=== PATIENT | male | born 1935 | race Caucasian/White ===

== ENCOUNTER → 2016-05-25 | Outpatient (CLI) | payer MEDICARE, BC, OTHER ==
[~2016-05-25] MED LIST: /ADVA50050 IN; /ADVA50050 INH; /PANT40TA; /TIOT18INH; /TIOT18INH INH; ACET65TA; ACET65TA PO; ADVA230A INH; ADVAIR; ALBUTEROL INHALATION; ATROVENT0.02% INH; BUSP5TA PO; CEFT500T PO; CEFU500T5; CELE10TA PO; COLC1TAB5 PO; DOCU10CA PO; IPRASOL4 IN; OXYGEN; PRED10TA PO; PRED10TA2; PRED10TA2 PO; PRIL40CA OR; PRIL40CA PO; PROV90AE; REME15TA PO; TAPA10TA2 PO; VENTAER INH; VENTOLININ INHALATION; VICO5TAB; ZEBE5TAB PO; ZITH500T PO; mucinex
--- NOTE | 2016-05-25 10:54 | REP ---
Chest x-ray: Two views. History: Chronic obstructive pulmonary disease. Comparison chest x-ray May 26, 2014. Findings: The lungs are somewhat hyperinflated with flattening of the hemidiaphragms and an increase in the AP diameter of the chest consistent with COPD. This is unchanged. There are emphysematous changes in the upper lobes and some mild interstitial fibrosis is seen in the bases. These findings are unchanged as well. The heart is not enlarged. No focal infiltrate is seen. There are minimal degenerative changes in the thoracic spine. Pulmonary vasculature is not increased. Impression: Evidence of COPD changes radiographically status quo. No acute abnormality. Signed by Sean Wolf MD 05/25/2016 03:08 P
== END ==
LOC: M RAD 10:05
PROVIDERS: ATTEND Internal Medicine Pulmonary Disease
DX: J44.9 Chronic obstructive pulmonary disease, unspecified (principal)

== ENCOUNTER → 2016-08-08 | Outpatient (REF) | payer MEDICARE, OTHER ==
[2016-08-08 13:02] LABS: FREE T4 1.17 NG/DL (0.76-1.46)
== END ==
LOC: M SFHCADAM 08:41
PROVIDERS: ATTEND Family Medicine
DX: E03.9 Hypothyroidism, unspecified (principal)

== ENCOUNTER → 2016-12-03 | Outpatient (CLI) | payer MEDICARE, BC, OTHER ==
[~2016-12-03] MED LIST changes: +COLC1TAB14 PO; -COLC1TAB5 PO
--- NOTE | 2016-12-03 12:39 | REP ---
REASON: Pain after fall many days ago. COMPARISON: Chest 05/15/2016. The accompanying frontal view of the chest shows no change from the prior exam. There is chronic fibrotic change. There is no pneumothorax. Multiple views of the right ribs are partially obscured by the marked parenchymal opacities. There is no evidence of a gross rib fracture. IMPRESSION: Limited exam. Consider followup if a rib fracture is of clinical concern. There are chronic changes seen in the lung urban. Signed by Aniceto Gómez DO 12/03/2016 12:43 P
--- NOTE | 2016-12-03 12:40 | REP ---
REASON: Pain after trauma. COMPARISON: None. There are chronic changes seen involving the thoracic spine, which are mild to moderate. There is no plain radiographic evidence of an acute fracture. Signed by Aniceto Gómez DO 12/03/2016 12:43 P
== END ==
LOC: M WUC 10:39
PROVIDERS: ATTEND Physician Assistant
DX: S20.221A Contusion of right back wall of thorax, initial encounter (principal); X58.XXXA Exposure to other specified factors, initial encounter; Y92.9 Unspecified place or not applicable

== ENCOUNTER → 2017-02-22 | Outpatient (REF) | payer MEDICARE, OTHER ==
[2017-02-22 14:01] LABS: MEAN CORPUSCULAR HEMOGLOBIN 31.5 pg (27.0-33.0); MEAN CORPUSCULAR HGB CONC 31.5 g/dl (32.0-36.5)
[2017-02-22 14:18] LABS: ALBUMIN 3.3 GM/DL (3.2-5.2); ALBUMIN/GLOBULIN RATIO 0.87 (1.00-1.93); ALKALINE PHOSPHATASE 71 U/L (45-117); ALT/SGPT 26 U/L (12-78); ANION GAP 6 MEQ/L (8-16); AST/SGOT 15 U/L (15-37); BILIRUBIN,TOTAL 0.6 MG/DL (0.2-1.0); BLOOD UREA NITROGEN 17 MG/DL (7-18); CALCIUM LEVEL 9.2 MG/DL (8.8-10.2); CARBON DIOXIDE LEVEL 29 MEQ/L (21-32); CHLORIDE LEVEL 105 MEQ/L (98-107); CHOLESTEROL LEVEL 144 MG/DL (<200); CREATININE FOR GFR 1.13 MG/DL (0.70-1.30); FREE T4 1.23 NG/DL (0.76-1.46); GLOMERULAR FILTRATION RATE > 60.0 (>35); GLUCOSE, FASTING 89 MG/DL (83-110); POTASSIUM SERUM 4.2 MEQ/L (3.5-5.1); SODIUM LEVEL 140 MEQ/L (136-145); TOTAL PROTEIN 7.1 GM/DL (6.4-8.2); TRIGLYCERIDES LEVEL 74 MG/DL (<150)
== END ==
LOC: M SFHCADAM 09:08
PROVIDERS: ATTEND Family Medicine
DX: J44.9 Chronic obstructive pulmonary disease, unspecified (principal); E03.9 Hypothyroidism, unspecified

== ENCOUNTER → 2017-05-22 | Outpatient (CLI) | payer MEDICARE, OTHER | LOC: M WUC 13:03 | DX: J44.9 Chronic obstructive pulmonary disease, unspecified (principal) | CPT/HCPCS: 71046 ==

== ENCOUNTER → 2017-09-07 | Outpatient (REF) | payer MEDICARE, OTHER ==
[2017-09-07 13:27] LABS: HEMATOCRIT 41.4 % (42.0-52.0); HEMOGLOBIN 13.5 g/dl (13.5-17.5); MEAN CORPUSCULAR HGB CONC 32.6 g/dl (32.0-36.5); MEAN CORPUSCULAR VOLUME 98.1 fl (80.0-96.0); PLATELET COUNT, AUTOMATED 244 10^3/uL (150-450); RED BLOOD COUNT 4.22 10^6/uL (4.30-6.10); RED CELL DISTRIBUTION WIDTH 13.8 % (11.5-14.5); RETIC HEMOGLOBIN EQUIVALENT 36.4 pg (24-36); RETICULOCYTE # 46.4 10^9/L (17-77); RETICULOCYTE % 1.1 % (0.5-1.5); WHITE BLOOD COUNT 6.7 10^3/uL (4.0-10.0)
[2017-09-07 13:53] LABS: FOLATE 16.7 NG/ML (>5.4); VITAMIN B12 LEVEL 648 PG/ML (247-911)
[2017-09-07 14:16] LABS: FERRITIN 50 NG/ML (26-388); IRON (FE) 144 UG/DL (65-175); PERCENT SATURATION 40.9 % (19.7-50.0); TOTAL IRON BINDING CAPACITY 352 UG/DL (250-450); TOTAL PROTEIN 7.5 GM/DL (6.4-8.2)
[2017-09-10 13:03] LABS: ALBUMIN % 50.7 % (55.8-66.1); ALPHA-1-GLOBULIN % 3.7 % (2.9-4.9); ALPHA-1-GLOBULINS 0.28 GM/DL (0.17-0.41); ALPHA-2-GLOBULINS 0.83 GM/DL (0.42-0.99); ALPHA-2-GLOBULINS % 11.1 % (7.1-11.8); BETA-1-GLOBULINS 0.53 GM/DL (0.28-0.60); BETA-2-GLOBULINS 0.56 GM/DL (0.19-0.55); BETA-2-GLOBULINS % 7.5 % (3.2-6.5)
[2017-09-10 13:13] LABS: IMMUNOTYPING SERUM IGA ABNORMAL (NORMAL); IMMUNOTYPING SERUM KAPPA ABNORMAL (NORMAL)
[2017-09-12 00:07] LABS: FREE KAPPA LIGHT CHAINS SERUM 63.6 mg/L (3.3-19.4); FREE LAMBDA LIGHT CHAINS SERUM 44.6 mg/L (5.7-26.3); KAPPA/LAMBDA RATIO SERUM 1.43 (0.26-1.65)
== END ==
LOC: M SFHCADAM 10:26
DX: D53.9 Nutritional anemia, unspecified (principal)
CPT/HCPCS: 82746

== ENCOUNTER → 2018-03-01 | Outpatient (CLI) | payer MEDICARE, OTHER ==
[2018-03-01 12:45] LABS: HEMATOCRIT 42.1 % (42.0-52.0); HEMOGLOBIN 13.7 g/dl (13.5-17.5); MEAN CORPUSCULAR HGB CONC 32.5 g/dl (32.0-36.5); MEAN CORPUSCULAR VOLUME 98.4 fl (80.0-96.0); PLATELET COUNT, AUTOMATED 221 10^3/uL (150-450); RED BLOOD COUNT 4.28 10^6/uL (4.30-6.10); RED CELL DISTRIBUTION WIDTH 13.6 % (11.5-14.5); WHITE BLOOD COUNT 5.7 10^3/uL (4.0-10.0)
[2018-03-01 16:13] LABS: ALBUMIN 3.3 GM/DL (3.2-5.2); ALKALINE PHOSPHATASE 73 U/L (45-117); ALT/SGPT 31 U/L (12-78); ANION GAP 8 MEQ/L (8-16); AST/SGOT 23 U/L (7-37); BILIRUBIN,TOTAL 0.7 MG/DL (0.2-1.0); BLOOD UREA NITROGEN 21 MG/DL (7-18); CALCIUM LEVEL 8.9 MG/DL (8.8-10.2); CARBON DIOXIDE LEVEL 26 MEQ/L (21-32); CHLORIDE LEVEL 107 MEQ/L (98-107); CHOLESTEROL LEVEL 149 MG/DL (<200); CHOLESTEROL RISK RATIO 2.709 (<5); CREATININE FOR GFR 1.06 MG/DL (0.70-1.30); GLOMERULAR FILTRATION RATE > 60.0 (>35); GLUCOSE, FASTING 83 MG/DL (70-100); HDL CHOLESTEROL 55 MG/DL (>40); LDL CHOLESTEROL 85 MG/DL (<100); NON-HDL-C 94 MG/DL; POTASSIUM SERUM 4.7 MEQ/L (3.5-5.1); SODIUM LEVEL 141 MEQ/L (136-145); TOTAL PROTEIN 7.4 GM/DL (6.4-8.2); TRIGLYCERIDES LEVEL 44 MG/DL (<150)
[2018-03-05 13:42] LABS: ALBUMIN 3.62 GM/DL (3.29-5.55); ALBUMIN % 48.9 % (55.8-66.1); ALPHA-1-GLOBULIN % 3.7 % (2.9-4.9); ALPHA-1-GLOBULINS 0.27 GM/DL (0.17-0.41); ALPHA-2-GLOBULINS 0.84 GM/DL (0.42-0.99); ALPHA-2-GLOBULINS % 11.4 % (7.1-11.8); BETA-1-GLOBULINS 0.54 GM/DL (0.28-0.60); BETA-1-GLOBULINS % 7.3 % (4.7-7.2); BETA-2-GLOBULINS % 7.8 % (3.2-6.5); GAMMA GLOBULIN % 20.9 % (11.1-18.8)
[2018-03-05 13:43] LABS: BETA-2-GLOBULINS 0.58 GM/DL (0.19-0.55); GAMMA GLOBULINS 1.55 GM/DL (0.65-1.58)
== END ==
LOC: M WUC 09:13
DX: D47.2 Monoclonal gammopathy (principal); E03.9 Hypothyroidism, unspecified
CPT/HCPCS: 84165

== ENCOUNTER → 2018-06-10 | Outpatient (CLI) | payer MEDICARE, OTHER ==
[~2018-06-10] MED LIST changes: +IPRA0.00 IN; -IPRASOL4 IN
--- NOTE | 2018-06-10 10:32 | REP ---
Chest two views HISTORY: Pulmonary disease Comparison: 05/22/2017 The lungs are hyperinflated. An increase in interstitial markings is present in the lungs. The heart is normal in size. The pulmonary vasculature is normal in appearance. The bony structure is intact. IMPRESSION: COPD. Electronically Signed by Wade Conway MD 06/10/2018 10:24 A
== END ==
LOC: M WUC 10:08
PROVIDERS: ATTEND Internal Medicine Pulmonary Disease
DX: J44.9 Chronic obstructive pulmonary disease, unspecified (principal)

== ENCOUNTER → 2018-09-09 | Outpatient (CLI) | payer MEDICARE, OTHER, BC ==
[~2018-09-09] MED LIST changes: -/ADVA50050 IN; -/ADVA50050 INH; -/PANT40TA; -/TIOT18INH; -/TIOT18INH INH; +ADVA1AER2 IN; +ADVA1AER2 INH; +PRED-351 PO; -PRED10TA PO; +PROT1TAB2; +SPIR1CAP; +SPIR1CAP INH
[2018-09-09 09:55] LABS: HEMATOCRIT 40.7 % (42.0-52.0); HEMOGLOBIN 13.2 g/dl (13.5-17.5); MEAN CORPUSCULAR HEMOGLOBIN 31.5 pg (27.0-33.0); MEAN CORPUSCULAR HGB CONC 32.4 g/dl (32.0-36.5); MEAN CORPUSCULAR VOLUME 97.1 fl (80.0-96.0); PLATELET COUNT, AUTOMATED 251 10^3/uL (150-450); RED BLOOD COUNT 4.19 10^6/uL (4.30-6.10); WHITE BLOOD COUNT 5.6 10^3/uL (4.0-10.0)
[2018-09-09 10:27] LABS: ALBUMIN 3.2 GM/DL (3.2-5.2); ALT/SGPT 22 U/L (12-78); BILIRUBIN,TOTAL 0.6 MG/DL (0.2-1.0); BLOOD UREA NITROGEN 14 MG/DL (7-18); CALCIUM LEVEL 8.5 MG/DL (8.8-10.2); CARBON DIOXIDE LEVEL 28 MEQ/L (21-32); CHLORIDE LEVEL 110 MEQ/L (98-107); CREATININE FOR GFR 1.04 MG/DL (0.70-1.30); FREE T4 1.22 NG/DL (0.76-1.46); GLOMERULAR FILTRATION RATE > 60.0 (>35); GLUCOSE, FASTING 86 MG/DL (70-100); POTASSIUM SERUM 4.3 MEQ/L (3.5-5.1); SODIUM LEVEL 142 MEQ/L (136-145); TOTAL PROTEIN 7.1 GM/DL (6.4-8.2)
[2018-09-10 13:40] LABS: ALBUMIN % 47.9 % (55.8-66.1); ALPHA-1-GLOBULINS 0.28 GM/DL (0.17-0.41); ALPHA-2-GLOBULINS % 11.2 % (7.1-11.8); BETA-1-GLOBULINS % 7.1 % (4.7-7.2); BETA-2-GLOBULINS 0.55 GM/DL (0.19-0.55); BETA-2-GLOBULINS % 7.7 % (3.2-6.5); GAMMA GLOBULIN % 22.1 % (11.1-18.8); GAMMA GLOBULINS 1.57 GM/DL (0.65-1.58)
== END ==
LOC: M WUC 08:29
PROVIDERS: ATTEND Family Medicine
DX: D47.2 Monoclonal gammopathy (principal); E03.9 Hypothyroidism, unspecified

== ENCOUNTER → 2019-05-13 | Outpatient (REF) | payer MEDICARE, OTHER ==
[2019-05-13 13:25] LABS: HEMATOCRIT 45.9 % (42.0-52.0); MEAN CORPUSCULAR HEMOGLOBIN 30.2 pg (27.0-33.0); MEAN CORPUSCULAR HGB CONC 30.5 g/dl (32.0-36.5); MEAN CORPUSCULAR VOLUME 98.9 fl (80.0-96.0); PLATELET COUNT, AUTOMATED 306 10^3/uL (150-450); RED BLOOD COUNT 4.64 10^6/uL (4.30-6.10); WHITE BLOOD COUNT 7.6 10^3/uL (4.0-10.0)
[2019-05-13 14:06] LABS: ALT/SGPT 30 U/L (12-78); BILIRUBIN,TOTAL 0.5 MG/DL (0.2-1.0); BLOOD UREA NITROGEN 16 MG/DL (7-18); CALCIUM LEVEL 9.2 MG/DL (8.8-10.2); CARBON DIOXIDE LEVEL 27 MEQ/L (21-32); CHLORIDE LEVEL 107 MEQ/L (98-107); CHOLESTEROL LEVEL 142 MG/DL (<200); CHOLESTEROL RISK RATIO 3.086 (<5); CREATININE FOR GFR 1.14 MG/DL (0.70-1.30); FREE T4 1.21 NG/DL (0.76-1.46); GLOMERULAR FILTRATION RATE > 60.0 (>35); GLUCOSE, FASTING 85 MG/DL (70-100); HDL CHOLESTEROL 46 MG/DL (>40); LDL CHOLESTEROL 82 MG/DL (<100); NON-HDL-C 96 MG/DL; POTASSIUM SERUM 4.3 MEQ/L (3.5-5.1); SODIUM LEVEL 142 MEQ/L (136-145); TOTAL PROTEIN 7.8 GM/DL (6.4-8.2); TRIGLYCERIDES LEVEL 71 MG/DL (<150)
[2019-05-15 10:20] LABS: ALBUMIN 3.53 GM/DL (3.29-5.55); ALBUMIN % 45.3 % (55.8-66.1); ALPHA-1-GLOBULIN % 4.2 % (2.9-4.9); ALPHA-1-GLOBULINS 0.33 GM/DL (0.17-0.41); ALPHA-2-GLOBULINS % 11.6 % (7.1-11.8); BETA-1-GLOBULINS 0.53 GM/DL (0.28-0.60); BETA-1-GLOBULINS % 6.8 % (4.7-7.2); BETA-2-GLOBULINS 0.67 GM/DL (0.19-0.55); BETA-2-GLOBULINS % 8.6 % (3.2-6.5); GAMMA GLOBULIN % 23.5 % (11.1-18.8); GAMMA GLOBULINS 1.83 GM/DL (0.65-1.58)
[2019-05-15 10:26] LABS: IMMUNOTYPING SERUM IGA ABNORMAL (NORMAL); IMMUNOTYPING SERUM KAPPA ABNORMAL (NORMAL)
== END ==
LOC: M SFHCADAM 10:33
PROVIDERS: ATTEND Family Medicine
DX: F39 Unspecified mood [affective] disorder (principal); E03.9 Hypothyroidism, unspecified; D47.2 Monoclonal gammopathy

== ENCOUNTER → 2019-08-26 | Outpatient (CLI) | payer MEDICARE, BC, OTHER ==
--- NOTE | 2019-08-26 12:56 | REP ---
DEEP VENOUS ULTRASONOGRAPHY RIGHT THIGH, RULE OUT DVT: REASON: Pain and swelling. TECHNIQUE: Multiple ultrasonographic images of the deep venous structures of the right thigh were obtained from the common femoral vein to the popliteal vein along with Doppler interrogation and color flow Doppler images. FINDINGS: There is no abnormal echogenic material seen within any of the visualized deep venous structures that would suggest acute thrombosis. Coaptation is unremarkable throughout. Doppler interrogation shows an expected response to respiratory variability and augmentation. The color flow images show what appears to be a normal vascular pattern throughout. IMPRESSION: There is no ultrasonographic evidence of deep venous thrombosis involving any of the visualized deep venous structures of the right thigh, as described above. Electronically Signed by Aniceto Gómez DO 08/26/2019 01:25 P
== END ==
LOC: M RAD 11:37
PROVIDERS: ATTEND Family Medicine
DX: M79.661 Pain in right lower leg (principal)
CPT/HCPCS: 93971; G0463

== ENCOUNTER → 2020-01-27 | Outpatient (REF) | payer MEDICARE, OTHER | LOC: M LAB REF 12:58 | PROVIDERS: ATTEND Physician Assistant | DX: R30.0 Dysuria (principal) ==

== ENCOUNTER → 2020-02-01 | Outpatient (CLI) | payer MEDICARE, OTHER ==
[2020-02-01 12:13] LABS: IONIZED CALCIUM 4.7 MG/DL (4.5-5.3)
[2020-02-01 12:38] LABS: BASO # 0.1 10^3/uL (0.0-0.2); EOS # 0.3 10^3/uL (0.0-0.5); EOS % 4.1 % (0.0-3.0); HEMATOCRIT 42.4 % (42.0-52.0); HEMOGLOBIN 13.6 g/dl (13.5-17.5); LYMPH % 32.1 % (24.0-44.0); MEAN CORPUSCULAR HEMOGLOBIN 31.2 pg (27.0-33.0); MEAN CORPUSCULAR HGB CONC 32.1 g/dl (32.0-36.5); MEAN CORPUSCULAR VOLUME 97.2 fl (80.0-96.0); MONO # 0.8 10^3/uL (0.0-0.8); NEUTROPHILS # 3.1 10^3/uL (1.5-8.5); NEUTROPHILS % 49.6 % (36.0-66.0); PLATELET COUNT, AUTOMATED 250 10^3/uL (150-450); RED BLOOD COUNT 4.36 10^6/uL (4.30-6.10); WHITE BLOOD COUNT 6.2 10^3/uL (4.0-10.0)
[2020-02-01 13:06] LABS: ALBUMIN 2.8 GM/DL (3.2-5.2); ALT/SGPT 27 U/L (12-78); BILIRUBIN,TOTAL 0.5 MG/DL (0.2-1.0); BLOOD UREA NITROGEN 15 MG/DL (7-18); CALCIUM LEVEL 8.5 MG/DL (8.8-10.2); CARBON DIOXIDE LEVEL 28 MEQ/L (21-32); CHLORIDE LEVEL 107 MEQ/L (98-107); CREATININE FOR GFR 1.06 MG/DL (0.70-1.30); FREE T4 1.47 NG/DL (0.76-1.46); GLOMERULAR FILTRATION RATE > 60.0 (>35); GLUCOSE, FASTING 76 MG/DL (70-100); POTASSIUM SERUM 4.8 MEQ/L (3.5-5.1); SODIUM LEVEL 141 MEQ/L (136-145); TOTAL PROTEIN 7.4 GM/DL (6.4-8.2)
[2020-02-02 10:30] LABS: VITAMIN B12 LEVEL 415 PG/ML (247-911)
[2020-02-02 10:32] LABS: FOLATE 7.5 NG/ML (>5.4)
== END ==
LOC: M WUC 10:19
PROVIDERS: ATTEND Family Medicine
DX: R11.0 Nausea (principal); Z79.899 Other long term (current) drug therapy

== ENCOUNTER 2020-05-24 18:13 | Inpatient (IN) | payer MEDICARE, BC, OTHER ==
[~2020-05-24] VITALS: Ht 177.8 cm; Wt 71.0 kg
[~2020-05-24 18:13] MED LIST changes: +MIRT-62 PO; -REME15TA PO
--- OUTSIDE RECORDS SUMMARY | 2020-05-24 18:24 | CCD ---
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 Name Role Phone Devan Wolf Unavailable PROBLEMS Type Condition ICD9-CM Code [id number] Code Onset Dates Condition S tatus SNOMED Code Notes Problem Seasonal affective disorder F39 Active 1815 86430 Problem Personal history of other malignant neoplasm of large intestine Z85.038 Active 609482453 Problem Encounter for immunization Z23 Active 58891 6002 Problem 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 829434484170708 Problem 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 633740051 Problem H/O Clostridium difficile infection Z86.19 Acti ve 702932487 Problem Situational stress F43.9 Active 43873100 Problem MRSA bacteremia R78.81 Active 7500434911457363 1 Problem Encounter for screening for malignant neoplasm of prostate Z12.5 Active 802217985 Problem Chronic obstructive pulmonary disease, unspecified J44.9 Active 91095463 Problem 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 010920818852837 Problem Hypothyroidism, unspecified E03.9 Active 4093 0008 ALLERGIES Allergen (clinical drug ingredient) Drug/Non Drug Allergy do cumented on EMR Reaction Allergy Type Onset Date Status Augmentin blood in urine Drug Allergy Active ENCOUNTERS from 1935 to 2020-03-09 Encounter Location Date Provider Diagnosis [facility] [address] [place] [address] Feb, Ran Wolf Situational stress F43.9 ; Encounter for immunization Z23 ; 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 ; MGUS (monoclonal gammopathy of unknown significance) D47.2 ; Seasonal affective disorder F39 and Chronic obstructive pulmonary disease, unspecified J44.9 IMMUNIZATIONS Vaccine Route Administration Date Status Influenza (18 yrs & older) Flublok IM Intramuscular Mar 03, 2020 Administered Influenza (High Dose 65 & up) IM Intramuscular 2017 A dministered Influenza (18 yrs & older) Flublok IM Intramuscular Mar 12, 2018 Administered Influenza (18 yrs & older) Flublok IM Intramuscular Mar 06, 2019 Administered Influenza (6mo & up) Fluzone IM Intramuscular Mar 04, 2010 Ad ministered Influenza (High Dose 65 & up) IM Intramuscular Feb 08, 2016 A dministered Pneumococcal Adult 0.5mL (Pneumovax 23) Unknown Jun 26, 2006 Administered Pneumococcal 0.5mL (Prevnar 13) IM Intramuscular August 04, 2015 Administered TD Adult 0.5mL (Tetanus) Unknown Jun 26, 2001 Adminis tered Influenza (6mo & up) Fluzone Unknown Feb 04, 2015 Adm inistered Influenza (6mo & up) Fluzone Unknown Mar 12, 2014 Adm inistered Influenza (6mo & up) Fluzone IM Intramuscular Mar 31, 2013 Ad ministered Influenza (6mo & up) Fluzone IM Intramuscular Mar 28, 2011 Ad ministered SOCIAL HISTORY Sex Assigned At : Social History Observation Description Sex Assigned At Unknown Audit Question Answer Notes Total Score: 0 Interpretation: Alcohol Education Language: Question Answer Notes Languages spoken: Dominican Drug and Alcohol Question Answer Notes Total Score: 0 Interpretation: No problems reported Alcohol Screening: Question Answer Notes Did you have a drink containing alcohol in the past year? No Points 0 Interpretation Negative REASON FOR REFERRAL No Information VITAL SIGNS Weight 160 lbs Feb, Height 67" in Feb, BMI 25.06 kg/m2 Feb, Heart Rate 72 /min Feb, Respiratory Rate 20 /min Feb, Temperature 97.0 degrees Fahrenheit Feb, Oximetry 98 Feb, Blood pressure systolic 132 mm Hg Feb, Blood pressure diastolic 70 mm Hg Feb, MEDICATIONS Medication SIG (Take, Route, Frequency, Duration) Start Date En d Date Status Remeron 15 MG 1 tablet before bedtime in t he evening Orally before bedtime for 30 Not-Taking Vitamin D 2000 UNIT 1 capsule Orally Once a day Active Remeron 30 MG 1 tablet at bedtime Orally before bedtime Active Advair HFA 230-21 MCG/ACT 2 puffs Inhalation Twice a day for 90 day (s) Active Mirtazapine Not-Taking Spiriva Respimat 2.5 MCG/ACT 2 puffs Inhalation Once a day for 90 d ay(s) Active Levothyroxine Sodium 75 MCG TAKE ONE TABLET BY MOUTH EVERY DAY for 90 Active Fish Oil 1000 MG 1 capsule Orally Once a day Active PROCEDURES No Information RESULTS No Results REASON FOR VISIT 486-1112/1 day,want to see JW MEDICAL (GENERAL) HISTORY Type Description Date Medical History COPD FEV 1.7 (03/17); severe fixed obstructive pattern with severely reduced diffusion capacity Medical History pneumonia 04/14; 03/17 Medical History colon CA 07/14-- + mets in no janice (pt declined chemo or rad tx) Medical History anemia Medical History ? CAD (old IWMI on EKG, norm al NST2/07--no inferior wall abnl, EF 68% Medical History fatty liver Medical History pericarditis/effusion 05/21, prob from hyperthyroidism - now with hypothyroidism Medical History radiocontrast-induced hyperthyroidism ; now hypothyroid Medical History CAP 05/21 Medical History MRSA bacteremia 05/21, prob from infected IV site Medical History COURTNEY 05/21: biatrial enlargeme nt, no vegetations, EF 65%, RV dilatation, valves all intact Medical History Seasonal depression/dysthymi a--has used Remeron seasonally in past Medical History MGUS, SPEP 09/21, IgA On[place] M spike 0.5 g/dl (03/24, 09/22, 05/26); plan q 12 mo SPEP Surgical History appendectomy Surgical History R cataract Surgical History Right eusebio-colectomy d/t Colon CA 07/14 Surgical History cataract-lens implants-left 03/2016 Goals Section No Information Health Concerns No Information MEDICAL EQUIPMENT No Information MENTAL STATUS No Information FUNCTIONAL STATUS No Information ASSESSMENTS Encounter Date Diagnosis Notes Feb, Encounter for immunization (ICD-10 - Z23 ) Feb, Situational stress (ICD-10 - F43.9) Feb, MGUS (monoclonal gammopathy of unknown significance) (ICD-10 - D47.2) Feb, 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 I again advised against anxiolytics (severe COPD). 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 Thyroi d function tests WNL on current dose of thyroid replacement w/o sx of over/underdosing MGUS (monoclonal gammopathy of unknown significance) STABLE PROTEIN LOAD, REPEAT IN 6 MO Treatment Notes Test Name Order Date Immunization: Flublok Quadrivalent (18 years & older) 0.5mL IM (Influenza) 2020-03-09 Next Appt Details 3 Months MAW Reason: Provider Name:Devan Luciano, 2020-05 01:45:00 PM, [address], [place], [address], Insurance Providers Payer Name Payer Address Payer Phone Insured Name Patient Relati onship to Insured Coverage Start Date Coverage End Date [facility] [address] [facility] [id number] [place] self MEDICARE Part A and B [address] [facility] [id number] [employer] self
--- OUTSIDE RECORDS SUMMARY | 2020-05-24 18:25 | CCD ---
Author Author [facility] Organization [facility] Address Unknown Phone Unavailable Care Team Providers Care Press Tender Smoke Signal Name Role Phone Rechlin, Felicita Pinon DO Unavailable Unavailable Rechlin, Felicita Pinon DO Unavailable Unavailable Rechlin, Felicita Pinon DO Unavailable Unavailable Rechlin, Felicita Pinon DO Unavailable Unavailable Rechlin, Felicita Pinon DO Unavailable Unavailable Rechlin, Felicita Pinon DO Unavailable Unavailable Rechlin, Felicita Pinon DO Unavailable Unavailable Rechlin, Felicita Pinon DO Unavailable Unavailable Rechlin, Felicita Pinon DO Unavailable Unavailable Rechlin, Felicita Pinon DO Unavailable Unavailable Rechlin, Felicita Pinon DO Unavailable Unavailable Rechlin, Felicita Pinon DO Unavailable Unavailable Rechlin, Felicita Pinon DO Unavailable Unavailable Rechlin, Felicita Pinon DO Unavailable Unavailable Rechlin, Felicita Pinon DO Unavailable Unavailable Rechlin, Felicita Pinon DO Unavailable Unavailable Rechlin, Felicita Pinon DO Unavailable Unavailable Rechlin, Felicita Pinon DO Unavailable Unavailable Rechlin, P Zi DO Unavailable Unavailable Rechlin, P Zi DO Unavailable Unavailable Rechlin, P Zi DO Unavailable Unavailable Rechlin, P Zi DO Unavailable Unavailable Rechlin, P Zi DO Unavailable Unavailable Rechlin, P Zi DO Unavailable Unavailable Rechlin, P Zi DO Unavailable Unavailable Rechlin, Felicita Pinon DO Unavailable Unavailable Rechlin, Felicita Pinon DO Unavailable Unavailable Rechlin, P Zi DO Unavailable Unavailable Rechlin, Felicita Pinon DO Unavailable Unavailable Rechlin, Felicita Pinon DO Unavailable Unavailable Rechlin, Felicita Pinon DO Unavailable Unavailable Rechlin, Felicita Pinon DO Unavailable Unavailable Rechlin, Felicita Pinon DO Unavailable Unavailable Rechlin, Felicita Pinon DO Unavailable Unavailable Rechlin, Felicita Pinon DO Unavailable Unavailable Rechlin, P Zi DO Unavailable Unavailable Rechlin, P Zi DO Unavailable Unavailable Rechlin, P Zi DO Unavailable Unavailable Rechlin, P Zi DO Unavailable Unavailable Rechlin, P Zi DO Unavailable Unavailable Rechlin, P Zi DO Unavailable Unavailable Rechlin, P Zi DO Unavailable Unavailable Rechlin, P Zi DO Unavailable Unavailable Rechlin, P Zi DO Unavailable Unavailable Rechlin, P Zi DO Unavailable Unavailable Rechlin, P Zi DO Unavailable Unavailable Rechlin, P Zi DO Unavailable Unavailable RING, K NICO PA Unavailable Unavailable RING, K NICO PA Unavailable Unavailable RING, K NICO PA Unavailable Unavailable RING, K NICO PA Unavailable Unavailable RING, K NICO PA Unavailable Unavailable RING, K NICO PA Unavailable Unavailable RING, K NICO PA Unavailable Unavailable RING, K NICO PA Unavailable Unavailable RING, K NICO PA Unavailable Unavailable RING, K NICO PA Unavailable Unavailable RING, K NICO PA Unavailable Unavailable RING, K NICO PA Unavailable Unavailable RING, K NICO PA Unavailable Unavailable RING, K NICO PA Unavailable Unavailable RING, K NICO PA Unavailable Unavailable RING, K NICO PA Unavailable Unavailable RING, K NICO PA Unavailable Unavailable RING, K NICO PA Unavailable Unavailable RING, K NICO PA Unavailable Unavailable RING, K NICO PA Unavailable Unavailable Gay, Dominique WAREHOUSE ASSISTANT Unavailable Unavailable Gay, Dominique WAREHOUSE ASSISTANT Unavailable Unavailable Gay, Dominique WAREHOUSE ASSISTANT Unavailable Unavailable Gay, Dominique WAREHOUSE ASSISTANT Unavailable Unavailable Gay, Dominique WAREHOUSE ASSISTANT Unavailable Unavailable Gay, Dominique WAREHOUSE ASSISTANT Unavailable Unavailable Gay, Dominique WAREHOUSE ASSISTANT Unavailable Unavailable Gay, Dominique WAREHOUSE ASSISTANT Unavailable Unavailable Gay, Dominique WAREHOUSE ASSISTANT Unavailable Unavailable Gay, Dominique WAREHOUSE ASSISTANT Unavailable Unavailable Gay, Dominique WAREHOUSE ASSISTANT Unavailable Unavailable Hoskins, Sparkle Kelsey PA Unavailable Unavailable Hoskins, Sparkle Kelsey PA Unavailable Unavailable Hoskins, Sparkle Kelsey PA Unavailable Unavailable Hoskins, Sparkle Kelsey PA Unavailable Unavailable Hoskins, Sparkle Kelsey PA Unavailable Unavailable Hoskins, Sparkle Kelsey PA Unavailable Unavailable Hoskins, Sparkle Kelsey PA Unavailable Unavailable Hoskins, Sparkle Kelsey PA Unavailable Unavailable Hoskins, Sparkle Kelsey PA Unavailable Unavailable Hoskins, Sparkle Kelsey PA Unavailable Unavailable Re-disclosure Warning The records that you are about to access may contain information from federally-assisted alcohol or drug abuse programs. If such information is present, then the following federally mandated warning applies: This information has been disclosed to you from records protected by federal confidentiality rules (42 CFR part 2). The federal rules prohibit you from making any further disclosure of this information unless further disclosure is expressly permitted by the written consent of the person to whom it pertains or as otherwise permitted by 42 CFR part 2. A general authorization for the release of medical or other information is NOT sufficient for this purpose. The Federal rules restrict any use of the information to criminally investigate or prosecute any alcohol or drug abuse patient.The records that you are about to access may contain highly sensitive health information, the redisclosure of which is protected by Article 27-F of the [facility] Public Health law. If you continue you may have access to information: Regarding HIV / AIDS; Provided by facilities licensed or operated by the [facility] Office of Mental Health; or Provided by the [facility] Office for People With Developmental Disabilities. If such information is present, then the following [facility] mandated warning applies: This information has been disclosed to you from confidential records which are protected by state law. State law prohibits you from making any further disclosure of this information without the specific written consent of the person to whom it pertains, or as otherwise permitted by law. Any unauthorized further disclosure in violation of state law may result in a fine or care home sentence or both. A general authorization for the release of medical or other information is NOT sufficient authorization for further disc losure. Allergies and Adverse Reactions Type Description Substance Reaction Status Data Source(s ) Augmentin Augmentin Amoxicillin 500 MG / Clavulanate 125 MG Oral Tablet [Augmentin] blood in urine Active eCW1 ([facility]) Augmentin Augmentin Amoxicillin 500 MG / Clavulanate 125 MG Oral Tablet [Augmentin] blood in urine Active eCW1 ([facility]) Augmentin Augmentin Amoxicillin 500 MG / Clavulanate 125 MG Oral Tablet [Augmentin] blood in urine Active eCW1 ([facility]) Family History Family Member Name Family Member Gender Family Member Status Date o f Status Description Data Source(s) Unknown Unknown Problem MEDENT ([facility]) Unknown Unknown Problem MEDENT ([facility], ) Encounters Encounter Providers Location Date Indications Data Source(s ) Office Visit, Est Pt., Level 4 PC [address] [place] [address] 03/03/2020 12:00:00 AM EDT eCW1 ([facility]) Office Visit, Est Pt., Level [address] PC [address] [place] [address] 02/04/2020 12:00:00 AM EDT eCW1 ([facility]) Outpatient Attender: Kelsey Dinero Prim arcenio 01/27/2020 02:30:00 PM EDT MEDENT ([facility]) [facility] [place] [address] [place] [address], [place] [address] 12/12/2019 12:00:00 AM EDT eCW1 ([facility]) Outpatient Attender: Kelsey Dinero Prim arcenio 11/15/2019 11:15:00 AM EDT MEDENT ([facility]) Outpatient Attender: NICO Dinero Primary 08/31/2019 11:15:00 AM EDT MEDENT ([facility]) [address] [place] [address] 08/26/2019 12:00:00 AM EDT eCW1 ([facility]) [facility] [place] [address] 08/26/2019 12:00:00 AM EDT eCW1 ([facility]) [facility] [place] [address] [facility] [place] [address] 08/26/2019 12:00:00 AM EDT eCW1 ([facility]) [facility] [place] [address] [facility] [place] [address] 08/12/2019 12:00:00 AM EDT eCW1 ([facility]) [place] [address] [facility] [address] 08/11/2019 12:00:00 AM EDT eCW1 ([facility]) [facility] [place] [address] [facility] [address] 07/23/2019 12:00:00 AM EDT eCW1 ([facility]) Outpatient Attender: Kelsey rg 07/16/2019 11:15:00 AM EDT MEDENT ([facility], [facility]) Outpatient Referrer: Zi Lala DO 07/01/2019 11:21:00 AM EST [facility] Outpatient Referrer: Zi Lala DO 07/01/2019 11:17:00 AM EST [facility] Outpatient Referrer: Zi Lala DO 07/01/2019 10:51:00 AM EST [facility] Outpatient 07/01/2019 10:50:00 AM EST [facility] [place] [address] [facility] [address] 05/21/2019 12:00:00 AM EST eCW1 ([facility]) Outpatient Attender: Dominique hilton 04/10/2019 10:45:00 AM EST MEDENT ([facility], [facility]) Immunizations Vaccine Date Status Description Data Source(s) influenza, recombinant, quadrIvalent,injectable, prese rvative free 03/03/2020 04:38:00 PM EDT completed eCW1 ([facility]) Medications Medication Brand Name Start Date Product Form Dose Route Admi nistrative Instructions Pharmacy Instructions Status Indications Reaction Description Data Source(s) Levofloxacin 250 MG Oral Tablet Levofloxacin 01/30/2020 12:00:00 AM E DT ORAL active MEDENT ([facility]) Ciprofloxacin 3 MG/ML / Dexamethasone 1 MG/ML Otic Ora pension [Ciprodex] Ciprodex 08/31/2019 12:00:00 AM EDT AURICULAR completed MEDENT ([facility], [facility]) Ciprofloxacin 3 MG/ML / Dexamethasone 1 MG/ML Otic Ora pension [Ciprodex] Ciprodex 04/10/2019 12:00:00 AM EST completed MEDENT ([facility], [facility]) Insurance Providers Payer name Policy type / Coverage type Policy ID Covered constitution party ID Covered constitution party's relationship to murdock Policy [place] Plan Information MEDICARE [id number] SP [id number] [facility] [id number] SP [id number] [facility] EMPIRE SHASHANK DIV [id number] SP [id number] [facility] EMPIRE SHASHANK DIV [id number] SP [id number] [facility] [id number] S [id number] MEDICARE C [id number] S [id number] MEDICARE PART A [facility] [id number] [facility] EMPIRE PLAN [id number] 18 [id number] ANSI-Commercial [id number] ANSI-Medicare Part B [id number] ANSI-Medicare Part B [id number] ANSI-Commercial [id number] ANSI-Commercial [id number] ANSI-Medicare Part B [id number] [facility] [place] Commercial [id number] Self [id number] Medicare Natl Gov't Servi Medicare Primary [id number] Self [id number] BCBS EMPIRE SHASHANK DIV UNAVAILABLE UNAVAILABLE [facility] [place] Commercial [id number] Self [id number] Medicare Natl Gov't Servi Medicare Primary [id number] Self [id number] ANSI-Medicare Part [id number] ANSI-Commercial [id number] ANSI-Commercial [id number] ANSI-Medicare Part B [id number] [facility] [place] [facility] Part B [id number] Self [id number] Medicare Natl Gov't Servi Medicare Primary [id number] Self [id number] ANSI-Medicare Part B [id number] ANSI-Commercial [id number] MEDICARE [id number] SP [id number] A [facility] [place] Medigap Part B [id number] Self [id number] Medicare [place] Medicare Primary [id number] Self [id number] [facility] [place] Medigap Part B [id number] Self [id number] Medicare Natl Gov't Servi Medicare Primary [id number] Self [id number] [facility] [place] Medigap Part B [id number] Self [id number] Medicare Natl Gov't Servi Medicare Primary [id number] Self [id number] [facility] [place] Medigap Part B [id number] Self [id number] Medicare Natl Gov't Servi Medicare Primary [id number] Self [id number] MEDICARE [id number] SP [id number] A [facility] [id number] SP [id number] BCBS [facility] DIV [id number] SP [id number] MEDICARE [id number] SP [id number] A [facility] [place] Medigap Part B Self Medicare [place] Medicare Primary Self [facility] [place] Medigap Part B Self Medicare Natl Gov't Servi Medicare Primary Self [id number] A [id number] Problems, Conditions, and Diagnoses Code Display Name Description Problem Type Effective Dates Data Source(s) F43.9 17703561 Situational stress Problem 08/12/2019 12:00: 00 AM EDT [facility] F43.9 [id number] Situational stress Problem 08/12/2019 12:00: 00 AM EDT [facility]CW[facility]) Surgeries/Procedures Procedure Description Date Indications Data Source(s) PRESSURIZED/NONPRESSURIZED INHALATION TREATMENT 2019 12:00:00 AM EDT MEDENT ([facility], [facility]) RMVL IMPACTED CERUMEN SPX 1/BOTH EARS 11/15/2019 12:00 :00 AM EDT MEDENT ([facility], [facility]) RMVL IMPACTED CERUMEN SPX 1/BOTH EARS 08/31/2019 12:00 :00 AM EDT MEDENT ([facility], [facility]) Office Visit, Est Pt., Level 4 PC 08/26/2019 12:00:00 AM EDT [facility] Office Visit, Est Pt., Level 2 FC 08/26/2019 12:00:00 AM EDT [facility]CW[facility]) PHYSICIAN TELEPHONE EVALUATION 11-20 MIN 08/12/2019 12 :00:00 AM EDT [facility]CW1 [facility]) RMVL IMPACTED CERUMEN SPX 1/BOTH EARS 07/16/2019 12:00 :00 AM EDT MEDENT ([facility]) Office Visit, Est Pt., Level 3 PC 05/21/2019 12:00:00 AM EST [facility]) Annual wellness visit, includes a person alized prevention plan of service (pps), subsequent visit 05/21/2019 12:00:00 AM EST eCW 1 [facility]) Results ID Date Data Source [id number] 01/27/2020 05:25:00 PM EDT MEDENT ([facility]) Name Value Range Interpretation Code Description Data Kenzie rce(s) Supporting Document(s) Bacteria identified in Urine by Culture Laboratory test result MEDENT ([facility]) <content>FULL REPORT IN LAB NOTES (eCW a nd Medent).</content>
<content></content>
<content>ORGANISM 1: PROTEUS MIRABILIS</content>
<content></content>
<content>COLONY COUNT 30,000</content>
<content></content>
<content></content>
<content>OR GANISM 1: PROTEUS MIRABILIS</content>
<content></content>
<content> PROTEUS MIRABILIS: REACTION</content>
<content>TRIMETHOPRIM/SULFAMETHOXAZOLE IV 160mg TMP & 800mg SMXq6h <=20 S</content>
<content> TRIMETHOPRIM/SULFAMETHOXAZOLE PO Bactrim DS Bid <=20 S</content>
<content>AMPICILLIN IV 500mg q6h <=2 S</content>
<content>AMPICILLIN PO 500mg q6h fasting <=2 S</content>
<content>GENTAMICIN IV 80mg q8h <=1 S</content>
<content>NITROFURANTOIN PO 100mg BID 128 R</content>
<content>CEFAZOLIN IV 1gm q8h <=4 S</content>
<content>LEVOFLOXACIN IV 500mg qd <=0.12 S</content>
<content>LEVOFLOXACIN PO 250mg qd <=0.12 S</content>
<content>LEVOFLOXACIN PO 500mg qd <=0.12 S</content>
<content>TOBRAMYCIN IV 80mg q8h <=1 S</content>
<content> CEFTRIAXONE IV 1gm q24h <=1 S</content>
<content>CEFTAZIDIME IV 1gm q8h <=1 S</content>
<content>AMPICILLIN/SULBACTAM IV 1.5g q6h <=2 S</content>
<content>PIPERACILLIN/TAZOBACTAM IV 2.25 gm q6h <=4 S</content>
<content>AZTREONAM IV 1gm q8h <=1 S</content>
<content>ERTAPENEM IV 1gm qd <=0.5 S</content>
<content> MEROPENEM IV 1 gm q8h <=0.25 S</content>
<content>MEROPENEM IV 500 mg q8h <=0.25 S</content>
<content>TIGECYCLINE IV 50mg q12h 4 R</content>
<content>CEFEPIME IV 1 gm q12h <=1 S</content>
<content>CEFEPIME IV 2 gm q12h <=1 S</content>
<content></content> ID Date Data Source [id number] 07/01/2019 12:00:00 AM EST [facility] Zi Richardlin DO Patient Name: JAYSON [id number] Date of : 1935[place] [address] Date of Exam: 07/01/2019PH#: Fax: [phone] EXAM: CHEST (2 VIEW) X-RAYCLINICAL INFORMATION: COPD.Comparison 06/10/2018 as well as other prior exams.Hyperinflation is again noted with diffuse interstitial fibrosis. Thefindings are stable. There is no definite superimposed acute infiltrate.Heart is normal in size. There is calcification of the thoracic aorta.Mediastinal silhouette is unchanged. There are mild degenerative changesof the spine.IMPRESSION:Stable findings of COPD as discussed above.SAVANNA Garvey/Rakesh you for referring JAYSON PRESCOTT to our office. Electronically Signed - EMILI JORDAN MD 07/02/19 9:37 Name Value Range Interpretation Code Description Data Kenzie rce(s) Supporting Document(s) Procedure Social History Code Duration Value Status Description Data Source(s ) Smoking 01/27/2020 12:00:00 AM EDT Patient is a former smoker completed Patient is a former smoker MEDENT ([facility], [facility]) Vital Signs ID Date Data Source UNK Name Value Range Interpretation Code Description Data Source(s) Diastolic blood pressure 70 mm[Hg] 70 mm[Hg] [facility] Systolic blood pressure 132 mm[Hg] 132 mm[Hg] e CW1 [facility]) Body temperature 97.0 [degF] 97.0 [degF] [facility] Respiratory rate 20 /min 20 /min eCW1 ([facility]) Heart rate 72 /min 72 /min eCW1 ([facility]) Body mass index (BMI) [Ratio] 25.06 kg/m2 25.06 kg/m2 eCW1 [facility] Body height [in_i] eCW1 ([facility]) Body weight 160 [lb_av] 160 [lb_av] [facility]CW[facility] Diastolic blood pressure 68 mm[Hg] 68 mm[Hg] eCW1 [facility]) Systolic blood pressure 128 mm[Hg] 128 mm[Hg] e CW1 ([facility]) Body temperature 97.1 [degF] 97.1 [degF] [facility] Respiratory rate 22 /min 22 /min eCW1 ([facility]) Heart rate 81 /min 81 /min eCW1 ([facility]) Body mass index (BMI) [Ratio] 25.06 kg/m2 25.06 kg/m2 eCW1 [facility]) Body height [in_i] eCW1 ([facility]) Body weight 160 [lb_av] 160 [lb_av] eCW[facility] Body mass index (BMI) [Ratio] 22.7 kg/m2 22.7 k g/m2 MEDENT ([facility], [facility]) Body height 70 [in_i] 70 [in_i] MEDENT ([facility], [facility]) 5'10" Body weight 158.00 [lb_av] 158.00 [lb_av] MEDEN T ([facility], [facility]) Body temperature 97.8 [degF] 97.8 [degF] MEDENT ([facility], [facility]) Oxygen saturation in Arterial blood by Pulse oximetry 91 % 91 % MEDENT ([facility], [facility]) Respiratory rate 20 /min 20 /min MEDENT ( [facility], [facility]) Heart rate 78 /min 78 /min MEDENT ([facility], [facility]) Diastolic blood pressure 70 mm[Hg] 70 mm[Hg] MEDENT ([facility], [facility]) Systolic blood pressure 128 mm[Hg] 128 mm[Hg] M EDENT ([facility], [facility]) Body mass index (BMI) [Ratio] 23.0 kg/m2 23.0 k g/m2 MEDENT ([facility], [facility]) Body height 70 [in_i] 70 [in_i] MEDENT ([facility], [facility]) 5'10" Body weight 160.00 [lb_av] 160.00 [lb_av] MEDEN T ([facility] [facility], [facility]) Body temperature 98.6 [degF] 98.6 [degF] MEDENT ([facility], [facility]) Oxygen saturation in Arterial blood by Pulse oximetry 91 % 91 % MEDENT ([facility], [facility]) Respiratory rate 16 /min 16 /min MEDENT ( [facility], [facility]) Heart rate 64 /min 64 /min MEDENT ([facility], [facility]) Diastolic blood pressure 71 mm[Hg] 71 mm[Hg] MEDENT ([facility] [facility], [facility]) Systolic blood pressure 107 mm[Hg] 107 mm[Hg] M EDENT ([place] [facility], [facility]) Body mass index (BMI) [Ratio] 23.0 kg/m2 23.0 k g/m2 [facility], [facility]) Body height 70 [in_i] 70 [in_i] MEDENT ([facility], [facility]) 5'10" Body weight 160.00 [lb_av] 160.00 [lb_av] MEDEN T ([facility], [facility]) Body temperature 98.4 [degF] 98.4 [degF] MEDENT ([facility], [facility]) Oxygen saturation in Arterial blood by Pulse oximetry 87 % 87 % MEDENT ([facility], [facility]) Respiratory rate 18 /min 18 /min MEDENT ( [facility], [facility]) Heart rate 80 /min 80 /min MEDENT ([facility], [facility]) Diastolic blood pressure 76 mm[Hg] 76 mm[Hg] MEDENT ([place] [facility], [facility]) Systolic blood pressure 127 mm[Hg] 127 mm[Hg] M EDENT ([place] [facility], [facility]) Diastolic blood pressure 70 mm[Hg] 70 mm[Hg] [facility] Systolic blood pressure 120 mm[Hg] 120 mm[Hg] e CW1 ([facility]) Body temperature 96.4 [degF] 96.4 [degF] eCW1 ( [facility]) Respiratory rate 20 /min 20 /min eCW1 ([facility]) Heart rate 110 /min 110 /min eCW1 ([facility]) Body mass index (BMI) [Ratio] 24.71 kg/m2 24.71 kg/m2 eCW1 ([facility]) Body height [in_us] eCW1 ([facility]) Body weight Measured 157.8 [lb_av] 157.8 [lb_av ] eCW1 ([facility]) Body mass index (BMI) [Ratio] 23.0 kg/m2 23.0 k g/m2 MEDENT ([place] [facility], [facility]) Body height 70 [in_i] 70 [in_i] MEDENT ([facility], [facility]) 5'10" Body weight 160.00 [lb_av] 160.00 [lb_av] MEDEN T ([facility], [facility]) Body temperature 98.3 [degF] 98.3 [degF] MEDENT ([facility], [facility]) Diastolic blood pressure 72 mm[Hg] 72 mm[Hg] MEDENT ([facility] [place], [facility]) Systolic blood pressure 120 mm[Hg] 120 mm[Hg] M EDENT ([facility] [place], [facility]) Oxygen saturation in Arterial blood by Pulse oximetry 99 % 99 % MEDENT ([facility], [facility]) Respiratory rate 20 /min 20 /min MEDENT ( [facility], [facility]) Heart rate 88 /min 88 /min MEDENT ([facility] [place], [facility]) Diastolic blood pressure 66 mm[Hg] 66 mm[Hg] [facility] Systolic blood pressure 122 mm[Hg] 122 mm[Hg] e CW1 ([facility]) Body temperature 98.8 [degF] 98.8 [degF] [facility]CW[facility] ( [facility]) Respiratory rate 18 /min 18 /min eCW1 ([facility]) Heart rate 91 /min 91 /min eCW1 ([facility]) Body mass index (BMI) [Ratio] 25.21 kg/m2 25.21 kg/m2 eCW1 [facility]) Body height [in_us] eCW1 ([facility]) Body weight Measured 161 [lb_av] 161 [lb_av] eC W1 ([facility]) Body mass index (BMI) [Ratio] 23.0 kg/m2 23.0 k g/m2 MEDENT ([facility], [facility]) Body height 70 [in_i] 70 [in_i] MEDENT ([facility], [facility]) 5'10" Body weight 160.00 [lb_av] 160.00 [lb_av] MEDEN T ([facility], [facility]) Body temperature 97.6 [degF] 97.6 [degF] MEDENT ([facility], [facility]) Oxygen saturation in Arterial blood by Pulse oximetry 87 % 87 % MEDENT ([facility], [facility]) Respiratory rate 18 /min 18 /min MEDENT ( [facility], [facility]) Heart rate 68 /min 68 /min MEDENT ([facility] [place], [facility]) Diastolic blood pressure 73 mm[Hg] 73 mm[Hg] MEDENT ([facility], [facility]) Systolic blood pressure 131 mm[Hg] 131 mm[Hg] M EDENT ([facility], [facility])
--- OUTSIDE RECORDS SUMMARY | 2020-05-24 19:01 | CCD ---
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 Name Role Phone Rechlin, Felicita Pinon DO [...] K NICO PA Unavailable Unavailable Gay, Dominique PEDIATRIC ASSOCIATE Unavailable Unavailable Gay, Dominique PEDIATRIC ASSOCIATE Unavailable Unavailable Gay, Dominique PEDIATRIC ASSOCIATE Unavailable Unavailable Gay, Dominique PEDIATRIC ASSOCIATE Unavailable Unavailable Gay, Dominique PEDIATRIC ASSOCIATE Unavailable Unavailable Gay, Dominique PEDIATRIC ASSOCIATE Unavailable Unavailable Gay, Dominique PEDIATRIC ASSOCIATE Unavailable Unavailable Gay, Dominique PEDIATRIC ASSOCIATE Unavailable Unavailable Gay, Dominique PEDIATRIC ASSOCIATE Unavailable Unavailable Gay, Dominique PEDIATRIC ASSOCIATE Unavailable Unavailable Gay, Dominique PEDIATRIC ASSOCIATE Unavailable Unavailable Hoskins, Sparkle Kelsey PA Unavailable Unavailable Hoskins, Sparkle Kelsey PA Unavailable Unavailable Hoskins, Sparkle Kelsey PA Unavailable Unavailable Hoskins, Sparkle Kelsey PA Unavailable Unavailable Hoskins, Sparkle Kelsey PA Unavailable Unavailable Hoskins, Sparkle Kelsey PA Unavailable Unavailable Hoskins, Sparkle Kelsey PA Unavailable Unavailable Hosknis, Sparkle Kelsey PA Unavailable Unavailable Hoskins, Sparkle [...] is protected by Article 27-F of the [facility] Public Health law. If you continue you may have access to information: Regarding HIV / AIDS; Provided by facilities licensed or operated by the [facility] Office of Mental Health; or Provided by the [facility] Office for People With Developmental Disabilities. If such information is present, then the following [facility] mandated warning applies: This information has been [...] law may result in a fine or long term sentence or both. A general authorization for the release of medical or other information is NOT sufficient authorization for further disc losure. Allergies and Adverse Reactions Type Description Substance Reaction Status Data Source(s ) Augmentin Augmentin Amoxicillin 500 MG / Clavulanate 125 MG Oral Tablet [Augmentin] blood in urine Active eCW1 ([facility]) Augmentin Augmentin Amoxicillin 500 MG / Clavulanate 125 MG Oral Tablet [Augmentin] blood in urine Active eCW1 ([facility]) Augmentin Augmentin Amoxicillin 500 MG / Clavulanate 125 MG Oral Tablet [Augmentin] blood in urine Active eCW1 ([facility]) Family History Family Member Name Family Member Gender Family Member Status Date o f Status Description Data Source(s) Unknown Unknown Problem MEDENT ([facility]) Unknown Unknown Problem MEDENT ([facility] ) Encounters Encounter Providers Location Date Indications Data Source(s ) Office Visit, Est Pt., Level 4 PC [address] [place] [address] 03/03/2020 12:00:00 AM EDT eCW1 ([facility]) Office Visit, Est Pt., Level 3 PC [address] [place] [address] 02/04/2020 12:00:00 AM EDT eCW1 ([facility]) Outpatient Attender: Kelsey Dinero Prim arcenio 01/27/2020 02:30:00 PM EDT MEDENT ([facility] [address] [address] [place] [address], [place] [address] 12/12/2019 12:00:00 AM EDT eCW1 ([facility] [place]) Outpatient Attender: Kelsey Dinero Prim arcenio 11/15/2019 11:15:00 AM EDT MEDENT ([facility]) Outpatient Attender: NICO Dinero Primary 08/31/2019 11:15:00 AM EDT MEDENT ([facility]) [address] [place] [address] 08/26/2019 12:00:00 AM EDT eCW1 ([facility] [place]) [facility] [place] [address] 08/26/2019 12:00:00 AM EDT eCW1 ([facility] [place]) [facility] [address] [address] [facility] [place] [address] 08/26/2019 12:00:00 AM EDT eCW1 ([facility] [place]) [facility] [address] [address] [facility] [place] [address] 08/12/2019 12:00:00 AM EDT eCW1 ([facility] [place]) [place] [address] [facility] [address] 08/11/2019 12:00:00 AM EDT eCW1 ([facility] [place]) [facility] [place] [address] [facility] [address] 07/23/2019 12:00:00 AM EDT eCW1 ([facility]) Outpatient Attender: Kelsey rg 07/16/2019 11:15:00 AM EDT MEDENT ([facility], [facility]) Outpatient Referrer: Zi Lala DO 07/01/2019 11:21:00 AM EST [facility] Outpatient Referrer: Zi Lala DO 07/01/2019 11:17:00 AM EST [facility] Outpatient Referrer: Zi Lala DO 07/01/2019 10:51:00 AM EST [facility] Outpatient 07/01/2019 10:50:00 AM EST [facility] [place] [address] [facility] [address] 05/21/2019 12:00:00 AM EST eCW1 ([facility]) Outpatient Attender: Dominique hilton 04/10/2019 10:45:00 AM EST MEDENT ([facility], [facility]) Immunizations Vaccine Date Status Description Data Source(s) influenza, recombinant, quadrIvalent,injectable, prese rvative free 03/03/2020 04:38:00 PM EDT completed eCW1 ([facility]) Medications Medication Brand Name Start Date Product Form Dose Route Admi nistrative Instructions Pharmacy Instructions Status Indications Reaction Description Data Source(s) Levofloxacin 250 MG Oral Tablet Levofloxacin 01/30/2020 12:00:00 AM E DT ORAL active MEDENT ([facility]) Ciprofloxacin 3 MG/ML / Dexamethasone 1 MG/ML Otic Ora pension [Ciprodex] Ciprodex 08/31/2019 12:00:00 AM EDT AURICULAR completed MEDENT ([facility], [facility]) Ciprofloxacin 3 MG/ML / Dexamethasone 1 MG/ML Otic Ora pension [Ciprodex] Ciprodex 04/10/2019 12:00:00 AM EST completed MEDENT ([facility], [facility]) Insurance Providers Payer name Policy type / Coverage type Policy ID Covered republican ID Covered republican's relationship to murdock Policy [place] Plan Information BCBS GOLDEN ENCARNACION DIV [id number] SP [id number] MEDICARE [id number] SP [id number] [facility] [id number] SP [id number] BCBS GOLDEN ENCARNACION DIV [id number] SP [id number] [facility] O [id number] S [id number] MEDICARE C [id number] S [id number] MEDICARE PART A [facility] [id number] 18 [id number] [facility] EMPIRE PLAN [id number] 18 [id number] ANSI-Commercial [id number] ANSI-Medicare Part B [id number] ANSI-Medicare Part B [id number] ANSI-Commercial [id number] ANSI-Commercial [id number] ANSI-Medicare Part B [id number] [facility] Commercial [id number] Self [id number] Medicare Natl Gov't Servi Medicare Primary [id number] Self [id number] BCBS EMPIRE SHASHANK DIV UNAVAILABLE UNAVAILABLE [facility] Commercial [id number] Self [id number] Medicare Natl Gov't Servi Medicare Primary [id number] Self [id number] ANSI-Medicare Part [id number] ANSI-Commercial [id number] ANSI-Commercial [id number] ANSI-Medicare Part B [id number] [facility] Part B [id number] Self [id number] Medicare Natl Gov't Servi Medicare Primary [id number] Self [id number] ANSI-Medicare Part B [id number] ANSI-Commercial [id number] MEDICARE [id number] SP [id number] A [facility] Medigap Part B [id number] Self [id number] [place] Medicare Primary [id number] Self [id number] [facility] Medigap Part B [id number] Self [id number] Medicare Natl Gov't Servi Medicare Primary [id number] Self [id number] [facility] Medigap Part B [id number] Self [id number] Medicare Natl Gov't Servi Medicare Primary [id number] Self [id number] [facility] Medigap Part B [id number] Self [id number] Medicare Natl Gov't Servi Medicare Primary [id number] Self [id number] MEDICARE [id number] SP [id number] A [facility] [id number] SP [id number] BCBS [facility] DIV [id number] SP [id number] MEDICARE [id number] SP [id number] A [facility] Medigap Part B Self Medicare [place] Medicare Primary Self [facility] Medigap Part B Self Medicare Natl Gov't Servi Medicare Primary Self [id number] A [id number] Problems, Conditions, and Diagnoses Code Display Name Description Problem Type Effective Dates Data Source(s) F43.9 12690709 Situational stress Problem 08/12/2019 12:00: 00 AM EDT eCW1 ([facility]) F43.9 77923512 Situational stress Problem 08/12/2019 12:00: 00 AM EDT eCW1 ([facility]) Surgeries/Procedures Procedure Description Date Indications Data Source(s) PRESSURIZED/NONPRESSURIZED INHALATION TREATMENT 2019 12:00:00 AM EDT MEDENT ([facility], [facility]) RMVL IMPACTED CERUMEN SPX 1/BOTH EARS 11/15/2019 12:00 :00 AM EDT MEDENT ([facility], [facility]) RMVL IMPACTED CERUMEN SPX 1/BOTH EARS 08/31/2019 12:00 :00 AM EDT MEDENT ([facility], [facility]) Office Visit, Est Pt., Level 4 PC 08/26/2019 12:00:00 AM EDT eCW1 ([facility]) Office Visit, Est Pt., Level 2 FC 08/26/2019 12:00:00 AM EDT eCW1 ([facility]) PHYSICIAN TELEPHONE EVALUATION 11-20 MIN 08/12/2019 12 :00:00 AM EDT eCW1 ([facility]) RMVL IMPACTED CERUMEN SPX 1/BOTH EARS 07/16/2019 12:00 :00 AM EDT MEDENT ([facility]) Office Visit, Est Pt., Level 3 PC 05/21/2019 12:00:00 AM EST eCW1 ([facility]) Annual wellness visit, includes a person alized prevention plan of service (pps), subsequent visit 05/21/2019 12:00:00 AM EST eCW 1 ([facility]) Results ID Date Data Source [id number] 01/27/2020 05:25:00 PM EDT MEDENT ([facility]) Name Value Range Interpretation Code Description Data Kenzie rce(s) Supporting Document(s) Bacteria identified in Urine by Culture Laboratory test result MEDENT ([facility]) <content>FULL REPORT IN LAB NOTES (eCW a [...] <=1 S</content>
<content></content> ID Date Data Source [id number] 07/01/2019 12:00:00 AM EST [facility]i Richardlin DO Patient Name: JAYSON [id number] Date of : 1935[place] [address] Date of Exam: 07/01/2019PH#: Fax: [phone] EXAM: [...] completed Patient is a former smoker MEDENT ([facility], [facility]) Vital Signs ID Date Data Source UNK Name Value Range Interpretation Code Description Data Source(s) Diastolic blood pressure 70 mm[Hg] 70 mm[Hg] eCW1 ([facility]) Systolic blood pressure 132 mm[Hg] 132 mm[Hg] e CW1 ([facility]) Body temperature 97.0 [degF] 97.0 [degF] eCW1 ( [facility]) Respiratory rate 20 /min 20 /min eCW1 ([facility]) Heart rate 72 /min 72 /min eCW1 ([facility]) Body mass index (BMI) [Ratio] 25.06 kg/m2 25.06 kg/m2 eCW1 ([facility]) Body height [in_i] eCW1 ([facility]) Body weight 160 [lb_av] 160 [lb_av] eCW1 ([facility]) Diastolic blood pressure 68 mm[Hg] 68 mm[Hg] eCW1 ([facility]) Systolic blood pressure 128 mm[Hg] 128 mm[Hg] e CW1 ([facility]) Body temperature 97.1 [degF] 97.1 [degF] eCW1 ( [facility]) Respiratory rate 22 /min 22 /min eCW1 ([facility]) Heart rate 81 /min 81 /min eCW1 ([facility]) Body mass index (BMI) [Ratio] 25.06 kg/m2 25.06 kg/m2 eCW1 ([facility]) Body height [in_i] eCW1 ([facility]) Body weight 160 [lb_av] 160 [lb_av] eCW1 ([facility]) Body mass index (BMI) [Ratio] 22.7 kg/m2 22.7 k g/m2 MEDENT ([facility], [facility]) Body height 70 [in_i] 70 [in_i] MEDENT ([facility], [facility]) 5'10" Body weight 158.00 [lb_av] 158.00 [lb_av] MEDEN T ([facility], [facility]) Body temperature 97.8 [degF] 97.8 [degF] MEDENT ([facility], [facility]) Oxygen saturation in Arterial blood by Pulse oximetry 91 % 91 % MEDENT ([facility], [facility]) Respiratory rate 20 /min 20 /min MEDENT ( [facility], [facility]) Heart rate 78 /min 78 /min MEDENT ([facility], [facility]) Diastolic blood pressure 70 mm[Hg] 70 mm[Hg] MEDENT ([facility], [facility]) Systolic blood pressure 128 mm[Hg] 128 mm[Hg] M EDENT ([facility], [facility]) Body mass index (BMI) [Ratio] 23.0 kg/m2 23.0 k g/m2 MEDENT ([facility], [facility]) Body height 70 [in_i] 70 [in_i] MEDENT ([facility], [facility]) 5'10" Body weight 160.00 [lb_av] 160.00 [lb_av] MEDEN T ([facility], [facility]) Body temperature 98.6 [degF] 98.6 [degF] MEDENT ([facility], [facility]) Oxygen saturation in Arterial blood by Pulse oximetry 91 % 91 % MEDENT ([facility], [facility]) Respiratory rate 16 /min 16 /min MEDENT ( [facility], [facility]) Heart rate 64 /min 64 /min MEDENT ([facility], [facility]) Diastolic blood pressure 71 mm[Hg] 71 mm[Hg] MEDENT ([facility], [facility]) Systolic blood pressure 107 mm[Hg] 107 mm[Hg] M EDENT ([facility], [facility]) Body mass index (BMI) [Ratio] 23.0 kg/m2 23.0 k g/m2 [facility], [facility]) Body height 70 [in_i] 70 [in_i] MEDENT ([facility], [facility]) 5'10" Body weight 160.00 [lb_av] 160.00 [lb_av] MEDEN T ([facility], [facility]) Body temperature 98.4 [degF] 98.4 [degF] MEDENT ([facility], [facility]) Oxygen saturation in Arterial blood by Pulse oximetry 87 % 87 % MEDENT ([facility], [facility]) Respiratory rate 18 /min 18 /min MEDENT ( [facility], [facility]) Heart rate 80 /min 80 /min MEDENT ([facility], [facility]) Diastolic blood pressure 76 mm[Hg] 76 mm[Hg] MEDENT ([facility], [facility]) Systolic blood pressure 127 mm[Hg] 127 mm[Hg] M EDENT ([facility], [facility]) Diastolic blood pressure 70 mm[Hg] 70 mm[Hg] eCW1 ([facility]) Systolic blood pressure 120 mm[Hg] 120 mm[Hg] e CW1 ([facility]) Body temperature 96.4 [degF] 96.4 [degF] eCW1 ( [facility]) Respiratory rate 20 /min 20 /min eCW1 ([facility]) Heart rate 110 /min 110 /min eCW1 ([facility]) Body mass index (BMI) [Ratio] 24.71 kg/m2 24.71 kg/m2 eCW1 ([facility]) Body height [in_us] eCW1 ([facility]) Body weight Measured 157.8 [lb_av] 157.8 [lb_av ] eCW1 ([facility]) Body mass index (BMI) [Ratio] 23.0 kg/m2 23.0 k g/m2 MEDENT ([facility], [facility]) Body height 70 [in_i] 70 [in_i] MEDENT ([facility], [facility]) 5'10" Body weight 160.00 [lb_av] 160.00 [lb_av] MEDEN T ([facility], [facility]) Body temperature 98.3 [degF] 98.3 [degF] MEDENT ([facility], [facility]) Diastolic blood pressure 72 mm[Hg] 72 mm[Hg] MEDENT ([facility], [facility]) Systolic blood pressure 120 mm[Hg] 120 mm[Hg] M EDENT ([facility], [facility]) Oxygen saturation in Arterial blood by Pulse oximetry 99 % 99 % MEDENT ([facility], [facility]) Respiratory rate 20 /min 20 /min MEDENT ( [facility], [facility]) Heart rate 88 /min 88 /min MEDENT ([facility], [facility]) Diastolic blood pressure 66 mm[Hg] 66 mm[Hg] eCW1 ([facility]) Systolic blood pressure 122 mm[Hg] 122 mm[Hg] e CW1 ([facility]) Body temperature 98.8 [degF] 98.8 [degF] eCW1 ( [facility]) Respiratory rate 18 /min 18 /min eCW1 ([facility]) Heart rate 91 /min 91 /min eCW1 ([facility]) Body mass index (BMI) [Ratio] 25.21 kg/m2 25.21 kg/m2 eCW1 ([facility]) Body height [in_us] eCW1 ([facility]) Body weight Measured 161 [lb_av] 161 [lb_av] eC W1 ([facility]) Body mass index (BMI) [Ratio] 23.0 kg/m2 23.0 k g/m2 MEDENT ([facility], [facility]) Body height 70 [in_i] 70 [in_i] MEDENT ([facility], [facility]) 5'10" Body weight 160.00 [lb_av] 160.00 [lb_av] MEDEN T ([facility], [facility]) Body temperature 97.6 [degF] 97.6 [degF] MEDENT ([facility], [facility]) Oxygen saturation in Arterial blood by Pulse oximetry 87 % 87 % MEDENT ([facility], [facility]) Respiratory rate 18 /min 18 /min MEDENT ( [facility]) Heart rate 68 /min 68 /min MEDENT ([facility], [facility]) Diastolic blood pressure 73 mm[Hg] 73 mm[Hg] MEDENT ([facility], [facility]) Systolic blood pressure 131 mm[Hg] 131 mm[Hg] M EDENT ([facility], [facility])
[2020-05-24] MEDS ORDERED: methylPREDNISolone 125MG 2ML VIAL IV ONE (19:15)
[2020-05-24] MEDS ORDERED: COMBIVENT RESPIMAT 100-20MCG INHALER 4GM INH ONE (19:15)
[2020-05-24 19:28] LABS: ABG BASE EXCESS 0.8 (-2.0-2.0); ABG HCO3 25.1 MEQ/L (22.0-26.0); ABG O2 SATURATION 95.4 % (95.0-99.0); ABG PARTIAL PRESSURE CO2 39.1 mmHg (35.0-45.0); ABG PARTIAL PRESSURE O2 78.5 mmHg (75.0-100.0); ABG STANDARD HCO3 25.1 MEQ/L (22.0-26.0); ABG TOTAL CO2 26.3 MEQ/L (23.0-31.0); ABG pH (ARTERIAL) 7.425 UNITS (7.350-7.450)
[2020-05-24 19:33] LABS: BASO % 0.7 % (0.0-1.0); EOS # 0.1 10^3/uL (0.0-0.5); EOS % 2.9 % (0.0-3.0); HEMATOCRIT 43.6 % (42.0-52.0); HEMOGLOBIN 13.7 g/dl (13.5-17.5); LYMPH # 1.5 10^3/uL (1.5-5.0); LYMPH % 34.4 % (24.0-44.0); MEAN CORPUSCULAR HEMOGLOBIN 31.1 pg (27.0-33.0); MEAN CORPUSCULAR HGB CONC 31.4 g/dl (32.0-36.5); MEAN CORPUSCULAR VOLUME 98.9 fl (80.0-96.0); MONO # 0.9 10^3/uL (0.0-0.8); MONO % 19.7 % (0.0-5.0); NEUTROPHILS # 1.9 10^3/uL (1.5-8.5); NEUTROPHILS % 42.1 % (36.0-66.0); PLATELET COUNT, AUTOMATED 264 10^3/uL (150-450); RED BLOOD COUNT 4.41 10^6/uL (4.30-6.10); WHITE BLOOD COUNT 4.4 10^3/uL (4.0-10.0)
[2020-05-24 19:47] LABS: INR 1.05
--- NOTE | 2020-05-24 20:05 | ECGEPIP ---
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
[2020-05-24 20:11] LABS: ALBUMIN 2.7 GM/DL (3.2-5.2); ALT/SGPT 41 U/L (12-78); BILIRUBIN,DIRECT 0.1 MG/DL (0.0-0.2); BILIRUBIN,TOTAL 0.4 MG/DL (0.2-1.0); BLOOD UREA NITROGEN 20 MG/DL (7-18); CALCIUM LEVEL 8.9 MG/DL (8.8-10.2); CARBON DIOXIDE LEVEL 27 MEQ/L (21-32); CHLORIDE LEVEL 108 MEQ/L (98-107); CK-MB VALUE MASS 2.8 NG/ML (<3.6); CPK CREATINE PHOSPHOKINASE 248 U/L (39-308); CREATININE FOR GFR 0.94 MG/DL (0.70-1.30); GLOMERULAR FILTRATION RATE > 60.0 (>35); GLUCOSE, FASTING 121 MG/DL (70-100); MB/CK RELATIVE INDEX 1.13 (< OR =4); NT-PRO BNP 128 PG/ML (<450); POTASSIUM SERUM 4.3 MEQ/L (3.5-5.1); SODIUM LEVEL 142 MEQ/L (136-145); TOTAL PROTEIN 7.3 GM/DL (6.4-8.2); TROPONIN I 0.02 NG/ML (< 0.10)
--- NOTE | 2020-05-24 20:53 | REPVR ---
PROCEDURE INFORMATION: Exam: XR Chest, 1 View Exam date and time: 05/24/2020 8:15 PM Age: 85 years old Clinical indication: Cough and dyspnea; Additional info: Dyspnea/cough TECHNIQUE: Imaging protocol: XR of the chest Views: 1 view. COMPARISON: CR CHEST 2 VIEW 06/10/2018 10:14 AM FINDINGS: Lungs: Degree of lung inflation is normal. No evidence of pulmonary edema. No focal consolidation or parenchymal lung mass. Pleural space: No pleural effusion or pneumothorax. Heart/Mediastinum: Cardiac silhouette appears normal. No adenopathy or hilar mass. Bones/joints: Osseous structures show no concerning abnormality. IMPRESSION: No acute or focal cardiopulmonary process. Electronically signed by: Aramis Brown On 05/24/2020 20:52:53 PM
[2020-05-24] MEDS ORDERED: SPIR12.9 INH (21:40)
[2020-05-24] MEDS ORDERED: SYNT75TA PO (21:40)
[2020-05-24] MEDS ORDERED: VITA200021 PO (21:40)
[2020-05-24] MEDS ORDERED: ADV250INH INH (21:40)
[2020-05-24] MEDS ORDERED: MIRT-60 PO (21:40)
[2020-05-24] MEDS ORDERED: FISH1000 PO (21:40)
[2020-05-24 21:51] LABS: C REACTIVE PROTEIN QUANTITATIV 4.29 MG/DL (0.00-0.30); FERRITIN 136 NG/ML (26-388); LDH LACTATE DEHYDROGENASE 203 U/L (87-241); MAGNESIUM LEVEL 1.8 MG/DL (1.8-2.4)
[2020-05-24] MEDS ORDERED: ALBUTEROL 90 MCG/ACT 8GM HFA INHALER INH PRN (22:45)
[2020-05-24] MEDS ORDERED: ACETAMINOPHEN TAB 650MG DOSE (2X325MG) PO PRN (22:45)
--- NOTE | 2020-05-24 22:45 | HPEPDOC ---
General Date of Admission Date of Service: May 24, 2020 Primary Care Physician: Devan Wolf MD Attending Physician: Andrea Bains MD Chief Complaint The patient is a 85-year-old male admitted with a reason for visit of Low Oxygen found to be COVID positive. Source: Patient, Family, RN/MD History of Present Illness Mr. Rios has not been feeling well for the last couple of days. Two days prior to admission, according to his daughter, he was more confused and this is not a usual problem for him. On the day before admission he slept most of the day. On the day of admission he went to the outpatient office for further evaluation of these symptoms. There he was found to be persistently hypoxemic in the high 80s and was directed to the emergency department for further evaluation. Of note the patient had his first COVID 19 vaccination on 05/20/20 (4 days prior to admission) Home Medications Scheduled Cholecalciferol (Vitamin D3) (Vitamin D3) 50 Mcg Capsule, 50 MCG PO DAILY, (Reported) Levothyroxine Sodium (Synthroid) 75 Mcg Tablet, 75 MCG PO DAILY, (Reported) Mirtazapine (Remeron) 30 Mg Tablet, 30 MG PO QHS, (Reported) Tippo-3 Fatty Acids/Fish Oil (Fish Oil 1,000 mg Capsule) 1 Each Capsule, 1,000 MG PO DAILY, (Reported) Salmeterol/Fluticasone (Advair 250-50 Diskus) 1 Each Blst.w.dev, 1 PUFF INH BID, (Reported) Tiotropium [place] (Spiriva Respimat) 4 Gm Mist.inhal, 2 PUFF INH DAILY, (Report ed) Allergies Coded Allergies: Sulfa (Sulfonamide Antibiotics) (Verified Allergy, Unknown, 05/24/20) latex (Unverified Allergy, Unknown, LATEX RISK, 05/24/20) Penicillins (Unverified Adverse Reaction, Intermediate, BLOOD IN URINE, 05/24/20) amoxicillin (Unverified Adverse Reaction, Intermediate, BLOOD IN URINE, 05/24/20) clavulanic acid (Unverified Adverse Reaction, Intermediate, BLOOD IN URINE, 05/24/20) Past Medical History Medical History 1. COPD with chronic respiratory failure. He typically is on 2.5 L/m of oxygen at night only. 2. Acquired hypothyroidism, secondary to radiocontrast-induced hyperthyroidism 3. Anemia, chronic 4. Nonalcoholic steatohepatitis 5. Seasonal depression/dysthymia 6. History of colon cancer (2010) 7. Monoclonal gammopathy of uncertain significance Surgical History 1. Appendectomy 2. Right hemicolectomy, secondary to colon cancer 3. Bilateral cataract extraction with lens implants Family History Both his father and his mother had COPD Social History * Smoker: former Smoker Alcohol: Denies He lives at [facility] [place] History Current/History of A-Fib/PAF?: No Review of Systems Constitutional: Reports: Fatigue; Denies: Chills, Fever ENT: Denies: Sore Throat, Epistaxis Skin: Denies: Rash, Lesions Pulmonary: Reports: Dyspnea (slight worsening from baseline); Denies: Cough, Pleuritic Chest Pain Cardiovascular: Denies: Chest Pain, Palpitations Gastrointestinal: Denies: Nausea, Vomiting, Abdominal Pain, Diarrhea Genitourinary: Denies: Dysuria, Hematuria Hematologic: Denies: Bruising, Bleeding Excessively Neurological: Reports: Confusion; Denies: Weakness Psych: Reports: Mood Normal Physical Examination General Exam: Positive: Alert, Cooperative (laying on his ER stretcher when I entered the room), No Acute Distress Eye Exam: Positive: PERRLA, Conjunctiva & lids normal; Negative: Sclera icteric ENT Exam: Positive: Atraumatic, Mucous membr. moist/pink, Pharynx Normal Neck Exam: Positive: Supple; Negative: JVD, Lymphadenopathy Chest Exam: Positive: Clear to auscultation, Diminished; Negative: Wheezing Heart Exam: Positive: Rate Normal, Regular Rhythm, Normal S1, Normal S2 Abdomen Exam: Positive: Normal bowel sounds, Soft; Negative: Tenderness Extremity Exam: Negative: Cyanosis, Edema Skin Exam: Negative: Rash Neuro Exam: Positive: Normal Speech, Normal Tone Psych Exam: Positive: Mental status NL Vital Signs Vital Signs Date Time Temp Pulse Resp B/P (MAP) Pulse Ox O2 Delivery O2 Flow Rate FiO2 05/24/20 21:15 86 20 122/66 (84) 94 Nasal Cannula 2.0 05/24/20 18:14 97.6 Laboratory Data Labs 24H Laboratory Tests 2 05/24/20 18:51: Immature Granulocyte % (Auto) 0.2, Neutrophils (%) (Auto) 42.1, Lymphocytes (%) (Auto) 34.4, Monocytes (%) (Auto) 19.7H, Eosinophils (%) (Auto) 2.9, Basophils (%) (Auto) 0.7, Neutrophils # (Auto) 1.9, Lymphocytes # (Auto) 1.5, Monocytes # (Auto) 0.9H, Eosinophils # (Auto) 0.1, Basophils # (Auto) 0.0, Nucleated Red Blood Cells % (auto) 0.0, Prothrombin Time 14.0, Prothromb Time International Ratio 1.05, Fibrinogen 467H, Anion Gap 7L, Glomerular Filtration Rate > 60.0, Calcium Level 8.9, Magnesium Level 1.8, Ferritin 136, Total Bilirubin 0.4, Direct Bilirubin 0.1, Aspartate Amino Transf (AST/SGOT) 39H, Alanine Aminotra nsferase (ALT/SGPT) 41, Alkaline Phosphatase 94, Lactate Dehydrogenase 203, Total Creatine Kinase 248, Creatine Kinase MB 2.8, Creatine Kinase MB Relative Index 1.13, Troponin I 0.02, C-Reactive Protein, Quantitative 4.29H, ZL-Atv-X-Type Natriuretic Peptide 128, Total Protein 7.3, Albumin 2.7L, [place] min/Globulin Ratio 0.6, Thyroid Stimulating Hormone (TSH) 2.210 05/24/20 19:16: Blood Gas Bicarbonate Standard 25.1, Arterial Blood pH 7.425, Arterial Blood Partial Pressure CO2 39.1, Arterial Blood Partial Pressure O2 78.5, Arterial Blood Total CO2 26.3, Arterial Blood HCO3 25.1, Arterial Blood Base Excess 0.8, Arterial Blood Oxygen Saturation 95.4 05/24/20 21:36: Lactic Acid Level 0.9 CBC/BMP Laboratory Tests 05/24/20 18:51 Microbiology Microbiology 05/24/20 Respiratory Virus Panel (PCR) (EFRA[facility]) - Final, Complete SARS-CoV-2 (COVID 19) Problems (1) Acute and chronic respiratory failure with hypoxia Problem Text: The thing that is keeping him here today as a slight worsening of his respiratory status. Typically he is on 2.5 L of oxygen per minute at night only. Currently he is requiring around 2 L of oxygen per minute during the day in order to maintain his saturations in the low 90s. (2) COVID-19 Status: Acute Problem Text: He is diagnosed with COVID 19 today. He did receive his first immunization 4 days ago. I'm hopeful that this will help him avoid a more severe illness by having primed his system for this infection. I did start him on dexamethasone, but he is not ill enough to require remdesivir at this time. Admitting him for ongoing monitoring given his multiple risk factors. (3) COPD (chronic obstructive pulmonary disease) Status: Chronic Response to Treatment: Worse Problem Text: His ABG is not too bad, but this is on chronic oxygen when he is typically on intermittent oxygen. We'll continue to monitor. (4) Hypothyroidism Status: Chronic Problem Text: Continue his home regimen. Plan / VTE VTE Prophylaxis Ordered?: Yes (Lovenox/teds) Plan Advanced Directives: MOLST Form is available, Do Not Resuscitate (DNR), Do Not Intubate (DNI) Andrea Bains MD May 24, 2020 22:45
--- OUTSIDE RECORDS SUMMARY | 2020-05-24 23:12 | CCD ---
Author Author [facility] Organization [facility] Address Unknown Phone Unavailable Care Team Providers Care Roll Changer Name Role Phone Rechlin, Felicita Pinon DO [...] P Zi DO Unavailable Unavailable Rechlin, P Iz DO Unavailable Unavailable Rechlin, P Zi DO [...] K NICO PA Unavailable Unavailable Gay, Dominique CONSTRUCTION WORKER Unavailable Unavailable Gay, Dominique CONSTRUCTION WORKER Unavailable Unavailable Agy, Dominique CONSTRUCTION WORKER Unavailable Unavailable Gay, Dominique CONSTRUCTION WORKER Unavailable Unavailable Gay, Dominique CONSTRUCTION WORKER Unavailable Unavailable Gay, Dominique CONSTRUCTION WORKER Unavailable Unavailable Gay, Dominique CONSTRUCTION WORKER Unavailable Unavailable Gay, Dominique CONSTRUCTION WORKER Unavailable Unavailable Gay, Dominique CONSTRUCTION WORKER Unavailable Unavailable Gay, Dominique CONSTRUCTION WORKER Unavailable Unavailable Gay, Dominique CONSTRUCTION WORKER Unavailable Unavailable Hoskins, Sparkle Kelsey PA Unavailable [...] is protected by Article 27-F of the [facility] Public Health law. If you continue you may have access to information: Regarding HIV / AIDS; Provided by facilities licensed or operated by the [facility] Office of Mental Health; or Provided by the [facility] Office for People With Developmental Disabilities. If such information is present, then the following [facility] mandated warning applies: This information has [...] law may result in a fine or alf sentence or both. A general authorization for the release of medical or other information is NOT sufficient authorization for further disc losure. Allergies and Adverse Reactions Type Description Substance Reaction Status Data Source(s ) Augmentin Augmentin Amoxicillin 500 MG / Clavulanate 125 MG Oral Tablet [Augmentin] blood in urine Active eCW1 ([facility]) Augmentin Augmentin Amoxicillin 500 MG / Clavulanate 125 MG Oral Tablet [Augmentin] blood in urine Active eCW1 ([facility]) Augmentin Augmentin Amoxicillin 500 MG / Clavulanate 125 MG Oral Tablet [Augmentin] blood in urine Active eCW1 ([facility]) Family History Family Member Name Family Member Gender Family Member Status Date o f Status Description Data Source(s) Unknown Unknown Problem MEDENT ([facility]) Unknown Unknown Problem MEDENT ([facility] ) Encounters Encounter Providers Location Date Indications Data Source(s ) Office Visit, Est Pt., Level 4 PC [address] [place] [address] 03/03/2020 12:00:00 AM EDT eCW1 ([facility]) Office Visit, Est Pt., Level [address] PC [address] [place] [address] 02/04/2020 12:00:00 AM EDT eCW1 ([facility]) Outpatient Attender: Kelsey Dinero Prim arcenio 01/27/2020 02:30:00 PM EDT MEDENT ([facility] [place] [address] [place] [address], [place] [address] 12/12/2019 12:00:00 AM EDT eCW1 ([facility]) Outpatient Attender: Kelsey Dinero Prim arcenio 11/15/2019 11:15:00 AM EDT MEDENT ([facility]) Outpatient Attender: NICO Dinero Primary 08/31/2019 11:15:00 AM EDT MEDENT ([facility]) [address] [place] [address] 08/26/2019 12:00:00 AM EDT eCW1 ([facility]) [facility] [place] [facility] [place] [address] 08/26/2019 12:00:00 AM EDT eCW1 ([facility]) [facility] [place] [address] [facility] [place] [address] 08/26/2019 12:00:00 AM EDT eCW1 ([facility]) [facility] [place] [address] [facility] [place] [address] 08/12/2019 12:00:00 AM EDT eCW1 ([facility]) [place] [address] [facility] [address] [place] [address] 08/11/2019 12:00:00 AM EDT eCW1 ([facility]) [facility] [place] [address] [facility] [address] [place] [address] 07/23/2019 12:00:00 AM EDT eCW1 ([facility]) Outpatient Attender: Kelsey rg 07/16/2019 11:15:00 AM EDT MEDENT ([facility], [facility]) Outpatient Referrer: Zi Lala DO 07/01/2019 11:21:00 AM EST [facility] Outpatient Referrer: Zi Lala DO 07/01/2019 11:17:00 AM EST [facility] Outpatient Referrer: Zi Lala DO 07/01/2019 10:51:00 AM EST [facility] Outpatient 07/01/2019 10:50:00 AM EST [facility] [place] [address] [facility] [place] [address] 05/21/2019 12:00:00 AM EST eCW1 ([facility]) Outpatient Attender: Dominique hilton 04/10/2019 10:45:00 AM EST MEDENT ([facility], [facility]) Immunizations Vaccine Date Status Description Data Source(s) influenza, recombinant, quadrIvalent,injectable, prese rvative free 03/03/2020 04:38:00 PM EDT completed eCW1 ([facility]) Medications Medication Brand Name Start Date Product Form Dose Route Admi nistrative Instructions Pharmacy Instructions Status Indications Reaction Description Data Source(s) Levofloxacin 250 MG Oral Tablet Levofloxacin 01/30/2020 12:00:00 AM E DT ORAL active MEDENT ([facility]) Ciprofloxacin 3 MG/ML / Dexamethasone 1 MG/ML Otic Ora pension [Ciprodex] Ciprodex 08/31/2019 12:00:00 AM EDT AURICULAR completed MEDENT ([facility], [facility]) Ciprofloxacin 3 MG/ML / Dexamethasone 1 MG/ML Otic Ora pension [Ciprodex] Ciprodex 04/10/2019 12:00:00 AM EST completed MEDENT ([facility], [facility]) Insurance Providers Payer name Policy type / Coverage type Policy ID Covered green party ID Covered green party's relationship to murdock Policy [place] Plan Information [facility] [id number] SP [id number] MEDICARE [id number] SP [id number] BCBS EMPIRE SHASHANK DIV [id number] SP [id number] BCBS EMPIRE SHASHANK DIV [id number] SP [id number] MEDICARE [id number] SP [id number] A [facility] [id number] SP [id number] [facility] [id number] S [id number] MEDICARE C [id number] S [id number] MEDICARE PART A [facility] [id number] [facility] EMPIRE PLAN [id number] 18 [id number] ANSI-Commercial [id number] ANSI-Medicare Part B [id number] ANSI-Medicare Part B [id number] ANSI-Commercial [id number] ANSI-Commercial [id number] ANSI-Medicare Part B [id number] [facility] Commercial [id number] Self [id number] Medicare Natl Gov't Servi Medicare Primary [id number] Self [id number] BCBS EMPIRE SHASHANK DIV UNAVAILABLE UNAVAILABLE [facility] Commercial [id number] Self [id number] Medicare Natl Gov't Servi Medicare Primary [id number] Self [id number] ANSI-Medicare Part [id number] ANSI-Commercial [id number] ANSI-Commercial [id number] ANSI-Medicare Part B [id number] [facility] Medigap Part B [id number] Self [id number] Medicare Natl Gov't Servi Medicare Primary [id number] Self [id number] ANSI-Medicare Part B [id number] ANSI-Commercial [id number] MEDICARE [id number] SP [id number] A [facility] Medigap Part B [id number] Self [id number] [place] Primary [id number] Self [id number] [facility] Medigap Part B [id number] Self [id number] Medicare [place]l Gov't Servi Medicare Primary [id number] Self [id number] [facility] Medigap Part B [id number] Self [id number] Medicare [place] Gov't Servi Medicare Primary [id number] Self [id number] [facility] Medigap Part B [id number] Self [id number] Medicare [place]l Gov't Servi Medicare Primary [id number] Self [id number] [facility] [id number] SP [id number] BCBS EMPIRE SHASHANK DIV [id number] SP [id number] MEDICARE [id number] SP [id number] A [facility] Medigap Part B Self Medicare [place] Medicare Primary Self [facility] Medigap Part B Self Medicare Natl Gov't Servi Medicare Primary Self [id number] A [id number] Problems, Conditions, and Diagnoses Code Display Name Description Problem Type Effective Dates Data Source(s) F43.9 05007011 Situational stress Problem 08/12/2019 12:00: 00 AM EDT eCW1 ([facility]) F43.9 88828382 Situational stress Problem 08/12/2019 12:00: 00 AM EDT eCW1 ([facility]) Surgeries/Procedures Procedure Description Date Indications Data Source(s) PRESSURIZED/NONPRESSURIZED INHALATION TREATMENT 2019 12:00:00 AM EDT MEDENT ([facility], [facility]) RMVL IMPACTED CERUMEN SPX 1/BOTH EARS 11/15/2019 12:00 :00 AM EDT MEDENT ([facility], [facility]) RMVL IMPACTED CERUMEN SPX 1/BOTH EARS 08/31/2019 12:00 :00 AM EDT MEDENT ([facility], [facility]) Office Visit, Est Pt., Level 4 PC 08/26/2019 12:00:00 AM EDT eCW1 ([facility]) Office Visit, Est Pt., Level 2 FC 08/26/2019 12:00:00 AM EDT eCW1 ([facility]) PHYSICIAN TELEPHONE EVALUATION 11-20 MIN 08/12/2019 12 :00:00 AM EDT eCW1 ([facility]) RMVL IMPACTED CERUMEN SPX 1/BOTH EARS 07/16/2019 12:00 :00 AM EDT MEDENT ([facility]) Office Visit, Est Pt., Level 3 PC 05/21/2019 12:00:00 AM EST eCW1 ([facility]) Annual wellness visit, includes a person alized prevention plan of service (pps), subsequent visit 05/21/2019 12:00:00 AM EST eCW 1 ([facility]) Results ID Date Data Source [id number] 01/27/2020 05:25:00 PM EDT MEDENT ([facility]) Name Value Range Interpretation Code Description Data Kenzie rce(s) Supporting Document(s) Bacteria identified in Urine by Culture Laboratory test result MEDENT ([facility]) <content>FULL REPORT IN LAB NOTES (eCW a [...] <=1 S</content>
<content></content> ID Date Data Source [id number] 07/01/2019 12:00:00 AM EST [facility] Name: JAYSON [id number] [facility] Date of : [address] [address] Date of Exam: 07/01/2019#: Fax: [phone] EXAM: CHEST (2 VIEW) X-RAYCLINICAL [...] completed Patient is a former smoker MEDENT ([facility], [facility]) Vital Signs ID Date Data Source UNK Name Value Range Interpretation Code Description Data Source(s) Diastolic blood pressure 70 mm[Hg] 70 mm[Hg] eCW1 ([facility]) Systolic blood pressure 132 mm[Hg] 132 mm[Hg] e CW1 ([facility]) Body temperature 97.0 [degF] 97.0 [degF] eCW1 ( [facility]) Respiratory rate 20 /min 20 /min eCW1 ([facility]) Heart rate 72 /min 72 /min eCW1 ([facility]) Body mass index (BMI) [Ratio] 25.06 kg/m2 25.06 kg/m2 eCW1 ([facility]) Body height [in_i] eCW1 ([facility]) Body weight 160 [lb_av] 160 [lb_av] eCW1 ([facility]) Diastolic blood pressure 68 mm[Hg] 68 mm[Hg] eCW1 ([facility]) Systolic blood pressure 128 mm[Hg] 128 mm[Hg] e CW1 ([facility]) Body temperature 97.1 [degF] 97.1 [degF] eCW1 ( [facility]) Respiratory rate 22 /min 22 /min eCW1 ([facility]) Heart rate 81 /min 81 /min eCW1 ([facility]) Body mass index (BMI) [Ratio] 25.06 kg/m2 25.06 kg/m2 eCW1 ([facility]) Body height [in_i] eCW1 ([facility]) Body weight 160 [lb_av] 160 [lb_av] eCW1 ([facility]) Body mass index (BMI) [Ratio] 22.7 kg/m2 22.7 k g/m2 MEDENT ([facility], [facility]) Body height 70 [in_i] 70 [in_i] MEDENT ([facility], [facility]) 5'10" Body weight 158.00 [lb_av] 158.00 [lb_av] MEDEN T ([facility], [facility]) Body temperature 97.8 [degF] 97.8 [degF] MEDENT ([facility], [facility]) Oxygen saturation in Arterial blood by Pulse oximetry 91 % 91 % MEDENT ([facility], [facility]) Respiratory rate 20 /min 20 /min MEDENT ( [facility]) Heart rate 78 /min 78 /min MEDENT ([facility], [facility]) Diastolic blood pressure 70 mm[Hg] 70 mm[Hg] MEDENT ([facility], [facility]) Systolic blood pressure 128 mm[Hg] 128 mm[Hg] M EDENT ([facility], [facility]) Body mass index (BMI) [Ratio] 23.0 kg/m2 23.0 k g/m2 MEDENT ([facility], [facility]) Body height 70 [in_i] 70 [in_i] MEDENT ([facility], [facility]) 5'10" Body weight 160.00 [lb_av] 160.00 [lb_av] MEDEN T ([facility], [facility]) Body temperature 98.6 [degF] 98.6 [degF] MEDENT ([facility], [facility]) Oxygen saturation in Arterial blood by Pulse oximetry 91 % 91 % MEDENT ([facility], [facility]) Respiratory rate 16 /min 16 /min MEDENT ( [facility], [facility]) Heart rate 64 /min 64 /min MEDENT ([facility], [facility]) Diastolic blood pressure 71 mm[Hg] 71 mm[Hg] MEDENT ([facility], [facility]) Systolic blood pressure 107 mm[Hg] 107 mm[Hg] M EDENT ([facility], [facility]) Body mass index (BMI) [Ratio] 23.0 kg/m2 23.0 k g/m2 [facility], [facility]) Body height 70 [in_i] 70 [in_i] MEDENT ([facility], [facility]) 5'10" Body weight 160.00 [lb_av] 160.00 [lb_av] MEDEN T ([facility], [facility]) Body temperature 98.4 [degF] 98.4 [degF] MEDENT ([facility], [facility]) Oxygen saturation in Arterial blood by Pulse oximetry 87 % 87 % MEDENT ([facility], [facility]) Respiratory rate 18 /min 18 /min MEDENT ( [facility], [facility]) Heart rate 80 /min 80 /min MEDENT ([facility], [facility]) Diastolic blood pressure 76 mm[Hg] 76 mm[Hg] MEDENT ([facility], [facility]) Systolic blood pressure 127 mm[Hg] 127 mm[Hg] M EDENT ([facility], [facility]) Diastolic blood pressure 70 mm[Hg] 70 mm[Hg] eCW1 ([facility]) Systolic blood pressure 120 mm[Hg] 120 mm[Hg] e CW1 ([facility]) Body temperature 96.4 [degF] 96.4 [degF] eCW1 ( [facility]) Respiratory rate 20 /min 20 /min eCW1 ([facility]) Heart rate 110 /min 110 /min eCW1 ([facility]) Body mass index (BMI) [Ratio] 24.71 kg/m2 24.71 kg/m2 eCW1 ([facility]) Body height [in_us] eCW1 ([facility]) Body weight Measured 157.8 [lb_av] 157.8 [lb_av ] eCW1 ([facility]) Body mass index (BMI) [Ratio] 23.0 kg/m2 23.0 k g/m2 MEDENT ([facility], [facility]) Body height 70 [in_i] 70 [in_i] MEDENT ([facility], [facility]) 5'10" Body weight 160.00 [lb_av] 160.00 [lb_av] MEDEN T ([facility], [facility]) Body temperature 98.3 [degF] 98.3 [degF] MEDENT ([facility], [facility]) Diastolic blood pressure 72 mm[Hg] 72 mm[Hg] MEDENT ([facility], [facility]) Systolic blood pressure 120 mm[Hg] 120 mm[Hg] M EDENT ([facility], [facility]) Oxygen saturation in Arterial blood by Pulse oximetry 99 % 99 % MEDENT ([facility], [facility]) Respiratory rate 20 /min 20 /min MEDENT ( [facility], [facility]) Heart rate 88 /min 88 /min MEDENT ([facility], [facility]) Diastolic blood pressure 66 mm[Hg] 66 mm[Hg] eCW1 ([facility]) Systolic blood pressure 122 mm[Hg] 122 mm[Hg] e CW1 ([facility]) Body temperature 98.8 [degF] 98.8 [degF] eCW1 ( [facility]) Respiratory rate 18 /min 18 /min eCW1 ([facility]) Heart rate 91 /min 91 /min eCW1 ([facility]) Body mass index (BMI) [Ratio] 25.21 kg/m2 25.21 kg/m2 eCW1 ([facility]) Body height [in_us] eCW1 ([facility]) Body weight Measured 161 [lb_av] 161 [lb_av] eC W1 ([facility]) Body mass index (BMI) [Ratio] 23.0 kg/m2 23.0 k g/m2 MEDENT ([facility], [facility]) Body height 70 [in_i] 70 [in_i] MEDENT ([facility], [facility]) 5'10" Body weight 160.00 [lb_av] 160.00 [lb_av] MEDEN T ([facility], [facility]) Body temperature 97.6 [degF] 97.6 [degF] MEDENT ([facility], [facility]) Oxygen saturation in Arterial blood by Pulse oximetry 87 % 87 % MEDENT ([facility], [facility]) Respiratory rate 18 /min 18 /min MEDENT ( [facility], [facility]) Heart rate 68 /min 68 /min MEDENT ([facility], [facility]) Diastolic blood pressure 73 mm[Hg] 73 mm[Hg] MEDENT ([facility], [facility]) Systolic blood pressure 131 mm[Hg] 131 mm[Hg] EDENT ([facility], [facility])
[2020-05-24] MEDS: NS 1,000 ML IV SCH (23:55)
[2020-05-24] MEDS: MIRTAZAPINE 15 MG TAB PO SCH (23:55)
[2020-05-24] MEDS: ENOXAPARIN 40MG/0.4ML SYRINGE (J1650 PER 10MG) SC SCH (23:55)
[2020-05-25] VITALS (9 sets, daily range): BP systolic 126–156; BP diastolic 58–75; O2SAT 92–98
[2020-05-25] MEDS: IPRATROPIUM HFA INHALER 12.9 GRAMS (ATROVENT HFA) INH SCH ×4 (02:00→20:27)
[2020-05-25] MEDS: LEVOTHYROXINE 75MCG TABLET (0.075MG) PO SCH (05:45)
[2020-05-25] MEDS: ADVAIR HFA 115/21MCG INHALER INH SCH ×2 (08:00→20:00)
[2020-05-25 08:23] LABS: BASO % 0.3 % (0.0-1.0); HEMATOCRIT 43.3 % (42.0-52.0); HEMOGLOBIN 13.8 g/dl (13.5-17.5); LYMPH # 0.8 10^3/uL (1.5-5.0); LYMPH % 25.6 % (24.0-44.0); MEAN CORPUSCULAR HEMOGLOBIN 31.4 pg (27.0-33.0); MEAN CORPUSCULAR HGB CONC 31.9 g/dl (32.0-36.5); MEAN CORPUSCULAR VOLUME 98.6 fl (80.0-96.0); MONO # 0.1 10^3/uL (0.0-0.8); MONO % 2.6 % (0.0-5.0); NEUTROPHILS # 2.2 10^3/uL (1.5-8.5); NEUTROPHILS % 71.2 % (36.0-66.0); PLATELET COUNT, AUTOMATED 289 10^3/uL (150-450); RED BLOOD COUNT 4.39 10^6/uL (4.30-6.10); WHITE BLOOD COUNT 3.1 10^3/uL (4.0-10.0)
[2020-05-25] MEDS: dexameTHASONE 4 MG/ML 1ML VIAL (J1100 PER 1MG) IV SCH (08:48)
[2020-05-25 09:05] LABS: BLOOD UREA NITROGEN 21 MG/DL (7-18); CALCIUM LEVEL 9.1 MG/DL (8.8-10.2); CARBON DIOXIDE LEVEL 25 MEQ/L (21-32); CHLORIDE LEVEL 106 MEQ/L (98-107); GLOMERULAR FILTRATION RATE > 60.0 (>35); GLUCOSE, FASTING 149 MG/DL (70-100); POTASSIUM SERUM 4.6 MEQ/L (3.5-5.1); SODIUM LEVEL 140 MEQ/L (136-145)
[2020-05-25] MEDS: ENOXAPARIN 40MG/0.4ML SYRINGE (J1650 PER 10MG) SC SCH ×2 (11:43→22:04)
[2020-05-25] MEDS: NS 1,000 ML IV SCH (11:44)
[2020-05-25] MEDS ORDERED: VENTAER INH (14:16)
[2020-05-25] MEDS ORDERED: DEXA2TA PO (14:16)
[2020-05-25] MEDS ORDERED: DOXY-350 PO (14:16)
--- NOTE | 2020-05-25 16:27 | DS.PDOC ---
Discharge Summary General Date of Admission May 24, 2020 at 22:45 Date of Discharge [facility] 2020 Attending Physician: HO BACA MD Discharge Summary PROCEDURES PERFORMED DURING STAY: [None]. ADMITTING DIAGNOSES: 1. Acute on chronic respiratory failure with hypoxia 2. Covid 19 3. COPD 4. Hypothyroidism 5. Nonalcoholic steatohepatitis 6. Depression/dysthymia 7. Monoclonal gammopathy of uncertain significant DISCHARGE DIAGNOSES: 1. Covid 19 2. COPD 3. Hypothyroidism 4. Nonalcoholic steatohepatitis 5. Depression/dysthymia 6. Monoclonal gammopathy of uncertain significant COMPLICATIONS/CHIEF COMPLAINT: Covid-19, Hypoxia. HISTORY OF PRESENT ILLNESS:Mr. Rios has not been feeling well for the last couple of days. Two days prior to admission, according to his daughter, he was more confused and this is not a usual problem for him. On the day before admission he slept most of the day. On the day of admission he went to the outpatient office for further evaluation of these symptoms. There he was found to be persistently hypoxemic in the high 80s and was directed to the emergency department for further evaluation. Of note the patient had his first COVID 19 vaccination on 05/20/20 (4 days prior to admission) HOSPITAL COURSE: Mr. Keen is doing okay on nasal cannula 1-2 L on and off saturating more than 95%. He had no acute events overnight and his lab work in the morning is normal. Today during the rounds he was a sleep and was woken up and felt a bit disoriented but on explaining him where she was he was oriented to person and place but not to time. Most likely given he was woken up from sleep he is disoriented. He looks normal and was feeling well and reports to be at baseline. DISCHARGE MEDICATIONS: Please see below. ALLERGIES: Please see below. PHYSICAL EXAMINATION ON DISCHARGE: General Exam: Positive: Alert, Cooperative (laying on his ER stretcher when I entered the room), No Acute Distress Eye Exam: Positive: PERRLA, Conjunctiva & lids normal; Negative: Sclera icteric ENT Exam: Positive: Atraumatic, Mucous membr. moist/pink, Pharynx Normal Neck Exam: Positive: Supple; Negative: JVD, Lymphadenopathy Chest Exam: Positive: Clear to auscultation, Diminished; Negative: Wheezing Heart Exam: Positive: Rate Normal, Regular Rhythm, Normal S1, Normal S2 Abdomen Exam: Positive: Normal bowel sounds, Soft; Negative: Tenderness Extremity Exam: Negative: Cyanosis, Edema Skin Exam: Negative: Rash Neuro Exam: Positive: Normal Speech, Normal Tone Psych Exam: Positive: Mental status NL LABORATORY DATA: Please see below. IMAGING: Chest x-ray on 05/24/20 reported as no acute or focal cardiopulmonary processes PROGNOSIS: Good ACTIVITY: [As tolerated]. DIET: As tolerated DISCHARGE PLAN: Follow with PCP in 1-2 weeks DISPOSITION: Home DISCHARGE INSTRUCTIONS: 1. Patient is being discharged on Ventolin inhaler. 2. Dexamethasone 2 mg daily for 4 days 3. Doxycycline 100 mg by mouth twice a day for 5 days. ITEMS TO FOLLOWUP ON ON OUTPATIENT: 1. Follow-up with PCP in 1-2 weeks DISCHARGE CONDITION: [Stable]. TIME SPENT ON DISCHARGE: Greater than 30 minutes. Vital Signs/I&Os Vital Signs Date Time Temp Pulse Resp B/P (MAP) Pulse Ox O2 Delivery O2 Flow Rate FiO2 05/25/20 12:05 92 Nasal Cannula 2.5 05/25/20 08:44 97.6 93 18 156/75 (102) I&O- Last 24 Hours up to 6 AM 05/25/20 06:00 Intake Total 85 ml Balance 85 ml Laboratory Data Labs 24H Laboratory Tests 2 05/24/20 18:51: Immature Granulocyte % (Auto) 0.2, Neutrophils (%) (Auto) 42.1, Lymphocytes (%) (Auto) 34.4, Monocytes (%) (Auto) 19.7H, Eosinophils (%) (Auto) 2.9, Basophils (%) (Auto) 0.7, Neutrophils # (Auto) 1.9, Lymphocytes # (Auto) 1.5, Monocytes # (Auto) 0.9H, Eosinophils # (Auto) 0.1, Basophils # (Auto) 0.0, Nucleated Red Blood Cells % (auto) 0.0, Prothrombin Time 14.0, Prothromb Time International Ratio 1.05, Fibrinogen 467H, Anion Gap 7L, Glomerular Filtration Rate > 60.0, Calcium Level 8.9, Magnesium Level 1.8, Ferritin 136, Total Bilirubin 0.4, Direct Bilirubin 0.1, Aspartate Amino Transf (AST/SGOT) 39H, Alanine Aminotransferase (ALT/SGPT) 41, Alkaline Phosphatase 94, Lactate Dehydrogenase 203, Total Creatine Kinase 248, Creatine Kinase MB 2.8, Creatine Kinase MB Relative Index 1.13, Troponin I 0.02, C-Reactive Protein, Quantitative 4.29H, ZP-Vqp-G-Type Natriuretic Peptide 128, Total Protein 7.3, Albumin 2.7L, Albumin/Globulin Ratio 0.6, Procalcitonin 0.06, Thyroid Stimulating Hormone (TSH) 2.210 05/24/20 19:16: Blood Gas Bicarbonate Standard 25.1, Arterial Blood pH 7.425, Arterial Blood Partial Pressure CO2 39.1, Arterial Blood Partial Pressure O2 78.5, Arterial Blood Total CO2 26.3, Arterial Blood HCO3 25.1, Arterial Blood Base Excess 0.8, Arterial Blood Oxygen Saturation 95.4 05/24/20 21:36: Lactic Acid Level 0.9 05/25/20 07:53: Immature Granulocyte % (Auto) 0.3, Neutrophils (%) (Auto) 71.2H, Lymphocytes (%) (Auto) 25.6, Monocytes (%) (Auto) 2.6, Eosinophils (%) (Auto) 0.0, Basophils (%) (Auto) 0.3, Neutrophils # (Auto) 2.2, Lymphocytes # (Auto) 0.8L, Monocytes # (Auto) 0.1, Eosinophils # (Auto) 0.0, Basophils # (Auto) 0.0, Nucleated Red Blood Cells % (auto) 0.0, Anion Gap 9, Glomerular Filtration Rate > 60.0, Calcium Level 9.1 CBC/BMP Laboratory Tests 05/24/20 18:51 05/25/20 07:53 Microbiology Microbiology 05/24/20 Respiratory Virus Panel (PCR) (EFRAÍN) - Final, Complete SARS-CoV-2 (COVID 19) Discharge Medications Scheduled Cholecalciferol (Vitamin D3) (Vitamin D3) 50 Mcg Capsule, 50 MCG PO DAILY, (Reported) Dexamethasone (Dexamethasone) 2 Mg Tablet, 2 MG PO DAILY Doxycycline Monohydrate (Doxycycline) 100 Mg Capsule, 100 MG PO BID Levothyroxine Sodium (Synthroid) 75 Mcg Tablet, 75 MCG PO DAILY, (Reported) Mirtazapine (Remeron) 30 Mg Tablet, 30 MG PO QHS, (Reported) [place]-3 Fatty Acids/Fish Oil (Fish Oil 1,000 mg Capsule) 1 Each Capsule, 1,000 MG PO DAILY, (Reported) Salmeterol/Fluticasone (Advair 250-50 Diskus) 1 Each Blst.w.dev, 1 PUFF INH BID, (Reported) Tiotropium [place] (Spiriva Respimat) 4 Gm Mist.inhal, 2 PUFF INH DAILY, (Reported) Scheduled PRN Albuterol Sulfate (Ventolin Hfa) 18 Gm Hfa.aer.ad, 2 PUFF INH Q4-6HP PRN for wheezing Allergies Coded Allergies: Sulfa (Sulfonamide Antibiotics) (Verified Allergy, Unknown, 05/24/20) latex (Unverified Allergy, Unknown, LATEX RISK, 05/24/20) Penicillins (Unverified Adverse Reaction, Intermediate, BLOOD IN URINE, 05/24/20) amoxicillin (Unverified Adverse Reaction, Intermediate, BLOOD IN URINE, 05/24/20) clavulanic acid (Unverified Adverse Reaction, Intermediate, BLOOD IN URINE, 05/24/20) GME ATTESTATION GME ATTESTATION My faculty preceptor for this patient encounter was physically present during the encounter and was fully available. All aspects of the patient interview, examination, medical decision making process, and medical care plan development were reviewed and approved by the faculty preceptor. The faculty preceptor is aware and concurs with the plan as stated in the body of this note and will attest to such by his/her cosignature. ATTENDING NOTE I, Ho Baca MD, have independently examined this patient and performed my own physical exam, as well as reviewed the documentation and edited where necessary. I have discussed in detail with the resident / student the findings and plan of treatment as documented by the resident / student and edited their note. I agree with their findings and treatment plan and have edited their doc umentation. Victorino Slater MD May 25, 2020 16:27 HO BACA MD May 28, 2020 13:52
[2020-05-25] MEDS: MIRTAZAPINE 15 MG TAB PO SCH (22:03)
[2020-05-26] MEDS: IPRATROPIUM HFA INHALER 12.9 GRAMS (ATROVENT HFA) INH SCH ×3 (01:44→08:32)
[2020-05-26 04:02] VITALS: BP 122/69
[2020-05-26 04:47] VITALS: O2SAT 88
[2020-05-26] MEDS: LEVOTHYROXINE 75MCG TABLET (0.075MG) PO SCH (05:45)
[2020-05-26] MEDS: ADVAIR HFA 115/21MCG INHALER INH SCH (08:00)
[2020-05-26 08:05] LABS: BASO % 0.1 % (0.0-1.0); HEMATOCRIT 40.7 % (42.0-52.0); HEMOGLOBIN 12.8 g/dl (13.5-17.5); LYMPH # 1.3 10^3/uL (1.5-5.0); LYMPH % 14.2 % (24.0-44.0); MEAN CORPUSCULAR HEMOGLOBIN 30.3 pg (27.0-33.0); MEAN CORPUSCULAR HGB CONC 31.4 g/dl (32.0-36.5); MEAN CORPUSCULAR VOLUME 96.4 fl (80.0-96.0); MONO % 10.8 % (0.0-5.0); NEUTROPHILS # 6.8 10^3/uL (1.5-8.5); NEUTROPHILS % 74.5 % (36.0-66.0); PLATELET COUNT, AUTOMATED 295 10^3/uL (150-450); RED BLOOD COUNT 4.22 10^6/uL (4.30-6.10); WHITE BLOOD COUNT 9.1 10^3/uL (4.0-10.0)
[2020-05-26 08:16] LABS: INR 1.12; PROTHROMBIN TIME 14.6 SECONDS (12.5-14.3)
[2020-05-26 08:17] LABS: PARTIAL THROMBOPLASTIN TIME 37.6 SECONDS (24.2-38.5)
[2020-05-26 08:32] LABS: ALBUMIN 2.7 GM/DL (3.2-5.2); ALT/SGPT 40 U/L (12-78); BILIRUBIN,DIRECT < 0.1 MG/DL (0.0-0.2); BILIRUBIN,TOTAL 0.2 MG/DL (0.2-1.0); BLOOD UREA NITROGEN 22 MG/DL (7-18); CARBON DIOXIDE LEVEL 25 MEQ/L (21-32); CHLORIDE LEVEL 110 MEQ/L (98-107); CPK CREATINE PHOSPHOKINASE 71 U/L (39-308); CREATININE FOR GFR 0.87 MG/DL (0.70-1.30); FERRITIN 112 NG/ML (26-388); GLOMERULAR FILTRATION RATE > 60.0 (>35); GLUCOSE, FASTING 106 MG/DL (70-100); LDH LACTATE DEHYDROGENASE 179 U/L (87-241); POTASSIUM SERUM 4.3 MEQ/L (3.5-5.1); SODIUM LEVEL 142 MEQ/L (136-145); TOTAL PROTEIN 7.3 GM/DL (6.4-8.2); TROPONIN I < 0.02 NG/ML (< 0.10)
[2020-05-26] MEDS: dexameTHASONE 4 MG/ML 1ML VIAL (J1100 PER 1MG) IV SCH (09:00)
== END 2020-05-26 10:38 | disposition home health service (06) | DRG 177 ==
LOC: M ED 18:13 → M ED INP 22:45 → M 4MAIN 05-25 01:15
PROVIDERS: ADMIT Family Medicine; ATTEND Internal Medicine
DX: U07.1 COVID-19 (principal); J96.21 Acute and chronic respiratory failure with hypoxia; J44.9 Chronic obstructive pulmonary disease, unspecified; E03.2 Hypothyroidism due to medicaments and other exogenous substances; F32.9 Major depressive disorder, single episode, unspecified; D47.2 Monoclonal gammopathy; K75.81 Nonalcoholic steatohepatitis (NASH); Z79.899 Other long term (current) drug therapy; Z88.2 Allergy status to sulfonamides; Z91.040 Latex allergy status; Z88.0 Allergy status to penicillin; Z88.8 Allergy status to other drugs, medicaments and biological substances

== ENCOUNTER → 2020-05-25 | Outpatient (REF) | payer MEDICARE, OTHER ==
[~2020-05-25] MED LIST changes: +ADV250INH INH; +ASPI81TAEC PO; +DEXA2TA PO; +DOXY-350 PO; +DOXY100C PO; +FISH1000 PO; +MIRT-60 PO; +PANT20TA6 PO; +PROAAER10 INH; +SPIR12.9 INH; +SYNT75TA PO; +VITA200021 PO
== END ==
LOC: M SFHCADAM 11:36
PROVIDERS: ATTEND Family Medicine
DX: R82.90 Unspecified abnormal findings in urine (principal)

== ENCOUNTER 2020-05-29 12:04 | Inpatient (IN) | payer MEDICARE, OTHER ==
[~2020-05-29] VITALS: Ht 172.7 cm; Wt 72.2 kg
[~2020-05-29 12:04] MED LIST changes: -ASPI81TAEC PO; -DOXY100C PO; -PANT20TA6 PO; -PROAAER10 INH
[2020-05-29] MEDS: COMBIVENT RESPIMAT 100-20MCG INHALER 4GM INH SCH ×3 (12:44→13:30)
[2020-05-29 12:45] LABS: VENOUS HCO3 29.2 MEQ/L (23.0-27.0); VENOUS O2 SATURATION 86.6 % (60.0-80.0); VENOUS PARTIAL PRESSURE CO2 46.2 mmHg (38.0-50.0); VENOUS PARTIAL PRESSURE O2 52.1 mmHg (30.0-50.0); VENOUS PH 7.419 UNITS (7.330-7.430); VENOUS STANDARD HCO3 27.7 MEQ/L; VENOUS TOTAL CO2 30.6 MEQ/L (24.0-28.0)
[2020-05-29 12:55] LABS: BASO % 0.4 % (0.0-1.0); HEMATOCRIT 41.1 % (42.0-52.0); HEMOGLOBIN 13.3 g/dl (13.5-17.5); LYMPH # 0.6 10^3/uL (1.5-5.0); LYMPH % 8.4 % (24.0-44.0); MEAN CORPUSCULAR HEMOGLOBIN 31.2 pg (27.0-33.0); MEAN CORPUSCULAR HGB CONC 32.4 g/dl (32.0-36.5); MEAN CORPUSCULAR VOLUME 96.5 fl (80.0-96.0); MONO # 1.1 10^3/uL (0.0-0.8); MONO % 14.4 % (0.0-5.0); NEUTROPHILS # 5.6 10^3/uL (1.5-8.5); NEUTROPHILS % 76.1 % (36.0-66.0); PLATELET COUNT, AUTOMATED 270 10^3/uL (150-450); RED BLOOD COUNT 4.26 10^6/uL (4.30-6.10); WHITE BLOOD COUNT 7.4 10^3/uL (4.0-10.0)
[2020-05-29 13:12] LABS: INR 1.04; PROTHROMBIN TIME 13.8 SECONDS (12.5-14.3)
[2020-05-29 13:29] LABS: ALBUMIN 2.6 GM/DL (3.2-5.2); ALT/SGPT 46 U/L (12-78); BILIRUBIN,DIRECT 0.2 MG/DL (0.0-0.2); BILIRUBIN,TOTAL 0.5 MG/DL (0.2-1.0); BLOOD UREA NITROGEN 24 MG/DL (7-18); CALCIUM LEVEL 8.8 MG/DL (8.8-10.2); CARBON DIOXIDE LEVEL 29 MEQ/L (21-32); CHLORIDE LEVEL 104 MEQ/L (98-107); CK-MB VALUE MASS 2.6 NG/ML (<3.6); CPK CREATINE PHOSPHOKINASE 30 U/L (39-308); CREATININE FOR GFR 0.81 MG/DL (0.70-1.30); GLOMERULAR FILTRATION RATE > 60.0 (>35); GLUCOSE, FASTING 95 MG/DL (70-100); MB/CK RELATIVE INDEX 8.67 (< OR =4); NT-PRO BNP 267 PG/ML (<450); POTASSIUM SERUM 4.1 MEQ/L (3.5-5.1); SODIUM LEVEL 141 MEQ/L (136-145); THYROXINE (T4) 8.3 UG/DL (4.5-12.0); TROPONIN I < 0.02 NG/ML (< 0.10)
--- NOTE | 2020-05-29 14:10 | REP ---
INDICATION: DYSPNEA/COUGH. COMPARISON: 05/24/2020 TECHNIQUE: Portable FINDINGS: The technique utilized in obtaining the radiograph has magnified the cardiac silhouette and accentuated the interstitial markings. There is no significant change from the prior exam. There is interstitial fibrosis and evidence of emphysematous change status quo. No acute patchy parenchymal opacities or pleural effusions have developed. The heart is not enlarged. The pleural angles are again seen to be sharp. There is no change in the osseous structures. IMPRESSION: Stable appearing chronic changes. <Electronically signed by Aniceto Gómez > 05/29/20 [id number]
[2020-05-29] MEDS ORDERED: ISOVUE-370 76% 100ML VIAL As Ordered ONE (14:37)
--- NOTE | 2020-05-29 15:46 | REP ---
INDICATION: shortness of breath. COMPARISON: 05/06/2014 the latest prior TECHNIQUE: CT angiogram pulmonary arteries 100 cc Isovue 370. FINDINGS: There is excellent visualization of the pulmonary arterial vasculature. There are no pleural or pericardial effusions. There is no mediastinal or hilar adenopathy. The imaged upper abdomen and imaged osseous structures are centrally unchanged the bones are demineralized. There are chronic spinal degenerative changes status quo. Evaluation of the lung urban again shows chronic changes with lung field hyperexpansion and right apical pleuroparenchymal scarring which appears stable. Respiratory motion artifact obscures the lung bases. Small nodules could be obscured. No spiculated lesions or significant nodules appear to have developed in the lung urban unaffected by the motion artifact. There is evidence of fibrotic change status quo. IMPRESSION: 1. There is no evidence of a pulmonary embolus 2. Chronic changes and exam limitations as described above. <Electronically signed by Aniceto Gómez > 05/29/20 [id number]
[2020-05-29] MEDS ORDERED: DOXY100C PO (17:13)
[2020-05-29] MEDS ORDERED: DEXA2TA PO (17:13)
[2020-05-29 18:01] LABS: INR 1.1; PROTHROMBIN TIME 14.4 SECONDS (12.5-14.3)
[2020-05-29 18:02] LABS: PARTIAL THROMBOPLASTIN TIME 29.3 SECONDS (24.2-38.5)
[2020-05-29 18:04] LABS: D-DIMER QUANT 621.68 ng/ml (<500)
[2020-05-29 18:10] LABS: ALBUMIN 2.6 GM/DL (3.2-5.2); BILIRUBIN,DIRECT 0.2 MG/DL (0.0-0.2); BILIRUBIN,TOTAL 0.4 MG/DL (0.2-1.0); C REACTIVE PROTEIN QUANTITATIV 1.47 MG/DL (0.00-0.30); TOTAL PROTEIN 6.6 GM/DL (6.4-8.2)
--- NOTE | 2020-05-29 18:31 | HPEPDOC ---
[facility] Medical History & Physical Date of Admission May 29, 2020 Date of Service: May 29, 2020 History and Physical CHIEF COMPLAINT: "hard to breathe without oxygen" HISTORY OF PRESENT ILLNESS: 85 y/o male w h/o copd not [id number] who lives at [facility] recently diagnoses and admitted for covid-19 on 05/24/20-05/26/20 with negative chest xray but required home o2 at discharge returns with increasing sob due to not wearing his oxygen. Pt's daughters are unable to supervise continuous oxygen since they are quarantined, so the patient was brought in to the ER for admission. He otherwise denies fever, chills, cough, n/v/abd pain, chest pain, loss of smell or taste, weight loss, and says he tries to use his oxygen but he forgets. He is admitted for covid-19 and unable tocare for himself at assisted living. cxr negative. no fever or symptoms, but mid80's on 84% room air needing 2liters oxygen. PAST MEDICAL HISTORY: 1. COPD with chronic respiratory failure. He typically is on 2.5 L/m of oxygen at night only. 2. Acquired hypothyroidism, secondary to radiocontrast-induced hyperthyroidism 3. Anemia, chronic 4. Nonalcoholic steatohepatitis 5. Seasonal depression/dysthymia 6. History of colon cancer (2009) 7. Monoclonal gammopathy of uncertain significance 8. coronavirus 05/24/20-05/26/20 [facility] admission 9. acute hypoxic respiratory failure due to covid-19 on 2liters nc since 05/26/20 PAST SURGICAL HISTORY: 1. Appendectomy 2. Right hemicolectomy, secondary to colon cancer 3. Bilateral cataract extraction with lens implants SOCIAL HISTORY: lives at [facility], former smoker, no etoh or recreational drug use, retired. dnr/dni FAMILY HISTORY: . both mother/father copd ALLERGIES: Please see below. REVIEW OF SYSTEMS: 12pt ros negaside from +findings on hpi HOME MEDICATIONS: Please see below. PHYSICAL EXAMINATION: VITAL SIGNS: see below GEN no distress. no use of resp acc mm hard of hearing HEENT: no jvd moist mm no stridor no cervical LAD EOMI Lungs: diminished but CTAB AEBE no wheezing, rales, or rhonchi Heart: S1S2 rrr Abd: soft nt nd +bs x 4quadrants no rebound or guarding Ext: trace edema b/l no cyanosis or clubbing LABORATORY DATA/IMAGING STUDIES/MICROBIOLOGY: SEE BELOW ASSESSMENT AND PLAN: 85 y/o male w h/o copd not [id number] who lives at [facility] recently diagnoses and admitted for covid-19 on 05/24/20-05/26/20 with negative chest xray but required home o2 at discharge returns with increasing sob due to not wearing his oxygen. Pt's daughters are unable to supervise continuous oxygen since they are quarantined, so the patient was brought in to the ER for admission. He otherwise denies fever, chills, cough, n/v/abd pain, chest pain, loss of smell or taste, weight loss, and says he tries to use his oxygen but he forgets. He is admitted for covid-19 and unable tocare for himself at assisted living. cxr negative. no fever or symptoms, but mid80's on 84% room air needing 2liters oxygen. coronavirus 05/24/20-05/26/20 [facility] admission -does not have severe infection, but will do serial monitoring of inflammatory markers -supportive care with supplemental oxygen -if worsening inflammation, and clinically more hypoxic, may give decadron and remdesevir. -does not keep his oxygen on at [facility] and becomes hypoxic. -none of his family can supervise at home. -pfs consulted to help provide 24/7 care to be coordinated with family for safe discharge. acute hypoxic respiratory failure due to covid-19 on 2liters nc since 05/26/20 -supportive care with supplemental oxygen -due to coronarvirus COPD with chronic respiratory failure. He typically is on 2.5 L/m of oxygen at night only. -compensated w/o wheezing, changes insputum production, fever -cxr: no acute infiltrate -since covid 19 +, he has required o2 at all times and desaturates to 84% on room air w exertion Acquired hypothyroidism, secondary to radiocontrast-induced hyperthyroidism -chronic Anemia, chronic -no acute indication for rbc transfusion Nonalcoholic steatohepatitis -chronic Seasonal depression/dysthymia -chronic History of colon cancer (2009) -chronic Monoclonal gammopathy of uncertain significance -chronic. disposition: needs 24hr supervision to keep o2 on at home. pfs consulted. Vital Signs Vital Signs Date Time Temp Pulse Resp B/P (MAP) Pulse Ox O2 Delivery O2 Flow Rate FiO2 05/29/20 17:14 96.6 72 18 127/70 (89) 97 Nasal Cannula 3.0 Laboratory Data Labs 24H Laboratory Tests 2 05/29/20 12:34: Immature Granulocyte % (Auto) 0.7, Neutrophils (%) (Auto) 76.1H, Lymphocytes (%) (Auto) 8.4L, Monocytes (%) (Auto) 14.4H, Eosinophils (%) (Auto) 0.0, Basophils (%) (Auto) 0.4, Neutrophils # (Auto) 5.6, Lymphocytes # (Auto) 0.6L, Monocytes # (Auto) 1.1H, Eosinophils # (Auto) 0.0, Basophils # (Auto) 0.0, Nucleated Red Blood Cells % (auto) 0.0, Prothrombin Time 13.8, Prothromb Time International Ratio 1.04, Blood Gas Bicarbonate Standard 27.7, Venous Blood pH 7.419, Venous Blood Partial Pressure CO2 46.2, Venous Blood Partial Pressure O2 52.1H, Venous Blood Total Carbon Dioxide 30.6H, Venous Blood HCO3 29.2H, Venous Blood Oxygen Saturation 86.6H, Venous Blood Base Excess 4.0H, Anion Gap 8, Glomerular Filtration Rate > 60.0, Lactic Acid Level 1.3, Calcium Level 8.8, Total Bilirubin 0.5, Direct Bilirubin 0.2, Aspartate Amino Transf (AST/SGOT) 21, Alanine Aminotransferase (ALT/SGPT) 46, Alkaline Phosphatase 88, Total Creatine Kinase 30L, Creatine Kinase MB 2.6, Creatine Kinase MB Relative Index 8.67H, Troponin I < 0.02, FR-Sqb-B-Type Natriuretic Peptide 267, Total Protein 7.0, Albumin 2.6L, Albumin/Globulin Ratio 0.6, Thyroid Stimulating Hormone (TSH) 1.610, Thyroxine (T4) 8.3 05/29/20 17:33: Prothrombin Time 14.4H, Prothromb Time International Ratio 1.10, Total Bilirubin 0.4, Direct Bilirubin 0.2, Aspartate Amino Transf (AST/SGOT) 18, Alanine Aminotransferase (ALT/SGPT) 40, Alkaline Phosphatase 79, YA-Iud-U-Type Natriuretic Peptide 264, Total Protein 6.6, Albumin 2.6L, Albumin/Globulin Ratio 0.7, Activated Partial Thromboplast Time 29.3, Fibrinogen 345, D-Dimer, Quantitative 621.68H, Ferritin 147, Lactate Dehydrogenase 165, C-Reactive Protein, Quantitative 1.47H CBC/BMP Laboratory Tests 05/29/20 12:34 Microbiology Microbiology 05/29/20 Blood Culture, Received Pending 05/29/20 Blood Culture, Received Pending Home Medications Scheduled Cholecalciferol (Vitamin D3) (Vitamin D3) 50 Mcg Capsule, 50 MCG PO DAILY Dexamethasone (Dexamethasone) 2 Mg Tablet, 2 MG PO DAILY TOOK LAST TAB TODAY Doxycycline Hyclate (Doxycycline Hyclate) 100 Mg Capsule, 100 MG PO BID Levothyroxine Sodium (Synthroid) 75 Mcg Tablet, 75 MCG PO DAILY Mirtazapine (Remeron) 30 Mg Tablet, 30 MG PO QHS [place]-3 Fatty Acids/Fish Oil (Fish Oil 1,000 mg Capsule) 1 Each Capsule, 1,000 MG PO DAILY Salmeterol/Fluticasone (Advair 250-50 Diskus) 1 Each Blst.w.dev, 1 PUFF INH BID Tiotropium [place] (Spiriva Respimat) 4 Gm Mist.inhal, 2 PUFF INH DAILY Allergies Coded Allergies: Sulfa (Sulfonamide Antibiotics) (Verified Allergy, Unknown, 05/24/20) latex (Unverified Allergy, Unknown, LATEX RISK, 05/24/20) Penicillins (Unverified Adverse Reaction, Intermediate, BLOOD IN URINE, 05/24/20) amoxicillin (Unverified Adverse Reaction, Intermediate, BLOOD IN URINE, 05/24/20) clavulanic acid (Unverified Adverse Reaction, Intermediate, BLOOD IN URINE, 05/24/20) A-FIB/CHADSVASC A-FIB History Current/History of A-Fib/PAF?: No Current PO Anticoag Therapy: No Age/Risk Factor Scoring CHADSVASC: CHADSVASC Response (Comments) Value Age Risk Factor Age >/= 75 years old 2 Gender Risk Factor Male 0 Hx of CHF No 0 Total 2 Treatment Treatment ordered: NONE JENA CUNNINGHAM MD May 29, 2020 18:31
[2020-05-29 18:45] VITALS: BP 123/82
[2020-05-29] MEDS ORDERED: PANTOPRAZOLE 20 MG TAB PO ONE (19:15)
[2020-05-29 20:00] VITALS: O2SAT 95
[2020-05-29 20:43] VITALS: BP 133/62
[2020-05-29] MEDS: ADVAIR HFA 230/21MCG INHALER INH SCH (22:07)
[2020-05-29] MEDS: ALBUTEROL 90 MCG/ACT 8GM HFA INHALER INH SCH (22:08)
[2020-05-29] MEDS: ENOXAPARIN 40MG/0.4ML SYRINGE (J1650 PER 10MG) SC SCH (22:41)
[2020-05-29] MEDS: ASPIRIN 81 MG ENTERIC TAB PO SCH (22:41)
[2020-05-29] MEDS: DOXYCYCLINE HYCLATE 100MG TABLET PO SCH (22:41)
[2020-05-29] MEDS: MIRTAZAPINE 15 MG TAB PO SCH (23:21)
[2020-05-30] VITALS (9 sets, daily range): BP systolic 106–131; BP diastolic 59–64; O2SAT 91–99
[2020-05-30] MEDS: LEVOTHYROXINE 75MCG TABLET (0.075MG) PO SCH (05:53)
[2020-05-30 07:04] LABS: HEMATOCRIT 37.6 % (42.0-52.0); HEMOGLOBIN 12.3 g/dl (13.5-17.5); LYMPH # 0.7 10^3/uL (1.5-5.0); LYMPH % 17.1 % (24.0-44.0); MEAN CORPUSCULAR HEMOGLOBIN 31.1 pg (27.0-33.0); MEAN CORPUSCULAR HGB CONC 32.7 g/dl (32.0-36.5); MEAN CORPUSCULAR VOLUME 95.2 fl (80.0-96.0); MONO # 0.5 10^3/uL (0.0-0.8); MONO % 11.4 % (0.0-5.0); NEUTROPHILS % 70.3 % (36.0-66.0); PLATELET COUNT, AUTOMATED 255 10^3/uL (150-450); RED BLOOD COUNT 3.95 10^6/uL (4.30-6.10); WHITE BLOOD COUNT 4.2 10^3/uL (4.0-10.0)
[2020-05-30 07:28] LABS: BLOOD UREA NITROGEN 23 MG/DL (7-18); CALCIUM LEVEL 8.6 MG/DL (8.8-10.2); CARBON DIOXIDE LEVEL 29 MEQ/L (21-32); CHLORIDE LEVEL 104 MEQ/L (98-107); GLOMERULAR FILTRATION RATE > 60.0 (>35); GLUCOSE, FASTING 116 MG/DL (70-100); MAGNESIUM LEVEL 1.9 MG/DL (1.8-2.4); POTASSIUM SERUM 4.5 MEQ/L (3.5-5.1); SODIUM LEVEL 140 MEQ/L (136-145)
[2020-05-30] MEDS: ALBUTEROL 90 MCG/ACT 8GM HFA INHALER INH SCH ×4 (07:32→19:18)
[2020-05-30] MEDS: ADVAIR HFA 230/21MCG INHALER INH SCH ×2 (07:32→19:18)
[2020-05-30] MEDS: TIOTROPIUM INHALER/CAPSULE (SPIRIVA) INH SCH (07:32)
--- NOTE | 2020-05-30 08:11 | ECGEPIP ---
[facility] - ED Test Date: 2020-05-29 Pat Name: JAYSON PRESCOTT Department: Room: [place] [address] Gender: Male Health And Wellness Director: : 1935 Requested By: MODESTA Dixon Order Number: [id number] Reading MD: Wicho Hernandes Measurements Intervals [place] Rate: 80 P: 78 LA: 155 QRS: 74 QRSD: 141 T: 35 QT: 390 QTc: 452 Interpretive Statements SINUS RHYTHM RIGHT BUNDLE BRANCH BLOCK BASELINE ARTIFACT AFFECTS INTERPRETATION SIMILAR TO 05/24/20 Electronically Signed on 05-30-2020 8:11:12 EST by Wicho Hernandes
[2020-05-30] MEDS: DOXYCYCLINE HYCLATE 100MG TABLET PO SCH ×2 (08:49→20:24)
[2020-05-30] MEDS: PANTOPRAZOLE 20 MG TAB PO SCH (08:49)
[2020-05-30] MEDS: ASPIRIN 81 MG ENTERIC TAB PO SCH (08:49)
[2020-05-30] MEDS: MIRTAZAPINE 15 MG TAB PO SCH (20:25)
[2020-05-30] MEDS: ENOXAPARIN 40MG/0.4ML SYRINGE (J1650 PER 10MG) SC SCH (20:25)
[2020-05-31] VITALS (7 sets, daily range): BP systolic 99–136; BP diastolic 57–74; O2SAT 95–99
[2020-05-31] MEDS: LEVOTHYROXINE 75MCG TABLET (0.075MG) PO SCH (06:24)
[2020-05-31] MEDS: TIOTROPIUM INHALER/CAPSULE (SPIRIVA) INH SCH (07:46)
[2020-05-31] MEDS: ALBUTEROL 90 MCG/ACT 8GM HFA INHALER INH SCH ×4 (07:46→20:20)
[2020-05-31] MEDS: ADVAIR HFA 230/21MCG INHALER INH SCH ×2 (07:46→20:20)
--- NOTE | 2020-05-31 08:22 | IPNPDOC ---
Date Seen The patient was seen on 05/30/20. Progress Note SUBJECTIVE: 85 yo M, hx COPD (2.5LPM at night), [facility] resident,treated for covid 05/24-05/26/20, was discharged on home O2 but had issues with wearing NC and titrating O2 flow. Patient's daughters ([place]: [phone]) are unable to provide 24/7 care and help with O2 supply, nor is [facility] able to take patient as they are on lock down according to family. PFS assisting with placement, per PT recommending rehab if family cannot care 24/7. Patient appears to be doing well. He is alert, oriented, comfortable in bed, sitting upright. He is presently on 2 L of nasal cannula saturating between 90- 99%. He denies any chest pain, shortness of breath, abdominal pain, nausea, vomiting or diarrhea. OBJECTIVE PHYSICAL EXAMINATION: VITAL SIGNS: please see below General: NAD, comfortable HEENT: PERRLA, EOMI, sclerae clear Neck: supple, normal ROM, no JVD Respiratory: lungs CTAB, no wheeze, no rales, no crackles CVS: RRR, normal S1, S2, no murmurs Abdo: soft, no masses, no hepatosplenomegaly, BS+, no rebound tenderness Extremities: no edema, pulses 2+ MSK: no joint deformities, normal ROM Neuro: no focal neuro deficits, moving all 4 extremities, CN2-12 intact. Streng th 5/5 in all 4 extremities. No nystagmus. Psych: calm, cooperative, AAO x 2-3 LABORATORY DATA, IMAGING STUDIES, MICROBIOLOGY: Please see below. DVT prophylaxis ordered? TEDs, SCDs, lvenox 40 mg daily. ASSESSMENT AND PLAN: Covid-19 infection: - was admitted on 05/24-05/26/20 - requires 2L NC, at rest saturates 92-96%, but drops on ambulation - receiving dexamethasone 2 mg PO - incentive spirometer - tylenol for fevers - family unable to provide 24/7 care, plan for rehab COPD with chronic respiratory failure - uses 2.5 LPM O2 at night at home - CXR showing no consolidation - will not start abx Acquire hypothyroidism - chronic, c/w meds NAIR - chronic Anemia - chronic History of colon cancer (2009) -chronic Monoclonal gammopathy of uncertain significance -chronic. Dispo: needs 27/11 care for O2 assistance, family cannot provide at this time. Rehab as per PT. VS, I&O, 24H, Fishbone Vital Signs/I&O Vital Signs Date Time Temp Pulse Resp B/P (MAP) Pulse Ox O2 Delivery O2 Flow Rate FiO2 05/31/20 04:30 99 Nasal Cannula 2.0 05/31/20 04:00 98.3 68 18 110/74 (86) I&O- Last 24 Hours up to 6 AM 05/31/20 06:00 Intake Total 870 ml Output Total 900 ml Balance -30 ml Laboratory Data Microbiology Microbiology 05/29/20 Blood Culture - Preliminary, Resulted No growth after 24 hours . All specim... 05/29/20 Blood Culture - Preliminary, Resulted No growth after 24 hours . All specim... NIESHA ZURITA MD May 31, 2020 08:22
[2020-05-31 08:36] LABS: BASO % 0.1 % (0.0-1.0); EOS % 0.1 % (0.0-3.0); HEMATOCRIT 39.6 % (42.0-52.0); HEMOGLOBIN 12.5 g/dl (13.5-17.5); LYMPH # 1.3 10^3/uL (1.5-5.0); LYMPH % 18.1 % (24.0-44.0); MEAN CORPUSCULAR HEMOGLOBIN 30.8 pg (27.0-33.0); MEAN CORPUSCULAR HGB CONC 31.6 g/dl (32.0-36.5); MEAN CORPUSCULAR VOLUME 97.5 fl (80.0-96.0); MONO # 1.2 10^3/uL (0.0-0.8); MONO % 16.4 % (0.0-5.0); NEUTROPHILS # 4.8 10^3/uL (1.5-8.5); NEUTROPHILS % 64.2 % (36.0-66.0); PLATELET COUNT, AUTOMATED 252 10^3/uL (150-450); RED BLOOD COUNT 4.06 10^6/uL (4.30-6.10); WHITE BLOOD COUNT 7.4 10^3/uL (4.0-10.0)
[2020-05-31 08:49] LABS: INR 1.11; PROTHROMBIN TIME 14.5 SECONDS (12.5-14.3)
[2020-05-31] MEDS: PANTOPRAZOLE 20 MG TAB PO SCH (09:16)
[2020-05-31] MEDS: DOXYCYCLINE HYCLATE 100MG TABLET PO SCH ×2 (09:16→20:30)
[2020-05-31] MEDS: ASPIRIN 81 MG ENTERIC TAB PO SCH (09:16)
[2020-05-31 09:19] LABS: ALBUMIN 2.3 GM/DL (3.2-5.2); ALT/SGPT 33 U/L (12-78); BILIRUBIN,DIRECT 0.1 MG/DL (0.0-0.2); BILIRUBIN,TOTAL 0.4 MG/DL (0.2-1.0); BLOOD UREA NITROGEN 24 MG/DL (7-18); CALCIUM LEVEL 8.6 MG/DL (8.8-10.2); CARBON DIOXIDE LEVEL 32 MEQ/L (21-32); CHLORIDE LEVEL 103 MEQ/L (98-107); CPK CREATINE PHOSPHOKINASE 23 U/L (39-308); CREATININE FOR GFR 0.85 MG/DL (0.70-1.30); FERRITIN 166 NG/ML (26-388); GLOMERULAR FILTRATION RATE > 60.0 (>35); GLUCOSE, FASTING 77 MG/DL (70-100); LDH LACTATE DEHYDROGENASE 162 U/L (87-241); MAGNESIUM LEVEL 1.8 MG/DL (1.8-2.4); NT-PRO BNP 207 PG/ML (<450); POTASSIUM SERUM 4.7 MEQ/L (3.5-5.1); SODIUM LEVEL 142 MEQ/L (136-145); TOTAL PROTEIN 6.2 GM/DL (6.4-8.2); TROPONIN I < 0.02 NG/ML (< 0.10)
--- NOTE | 2020-05-31 12:20 | IPNPDOC ---
Date Seen The patient was seen on 05/31/20. Progress Note SUBJECTIVE: 85 yo M, hx COPD (2.5LPM at night), [facility] resident,treated for covid 05/24-05/26/20, was discharged on home O2 but had issues with wearing NC and titrating O2 flow. Patient's daughters (Harman: [phone]) are unable to provide 24/7 care and help with O2 supply, nor is [facility] able to take patient as they are on lock down according to family. PFS assisting with placement, per PT recommending rehab if family cannot care 24/7 Is 20. Patient appears to be doing well. He is alert, oriented, comfortable in bed, sitting upright. He is presently on 2 L of nasal cannula saturating between 90-99%. He denies any chest pain, shortness of breath, abdominal pain, nausea, vomiting or diarrhea. OBJECTIVE PHYSICAL EXAMINATION: VITAL SIGNS: please see below General: NAD, comfortable HEENT: PERRLA, EOMI, sclerae clear Neck: supple, normal ROM, no JVD Respiratory: lungs CTAB, no wheeze, no rales, no crackles CVS: RRR, normal S1, S2, no murmurs Abdo: soft, no masses, no hepatosplenomegaly, BS+, no rebound tenderness Extremities: no edema, pulses 2+ MSK: no joint deformities, normal ROM Neuro: no focal neuro deficits, moving all 4 extremities, CN2-12 intact. Strength 5/5 in all 4 extremities. No nystagmus. Psych: calm, cooperative, AAO x 2-3 LABORATORY DATA, IMAGING STUDIES, MICROBIOLOGY: Please see below. DVT prophylaxis ordered? TEDs, SCDs, lvenox 40 mg daily. ASSESSMENT AND PLAN: Covid-19 infection: - was admitted on 05/24-05/26/20 - requires 2L NC, at rest saturates 92-96%, but drops on ambulation - receiving dexamethasone 2 mg PO - incentive spirometer - tylenol for fevers - family unable to provide 24/7 care, plan for rehab COPD with chronic respiratory failure - uses 2.5 LPM O2 at night at home - CXR showing no consolidation - will not start abx Acquire hypothyroidism - chronic, c/w meds NAIR - chronic Anemia - chronic History of colon cancer (2009) -chronic Monoclonal gammopathy of uncertain significance -chronic. Dispo: needs 27/11 care for O2 assistance, family cannot provide at this time. Rehab as per PT. I spoke to patient's daughter Harman ([phone]) and have answered all questions in detail. VS, I&O, 24H, Fishbone Vital Signs/I&O Vital Signs Date Time Temp Pulse Resp B/P (MAP) Pulse Ox O2 Delivery O2 Flow Rate FiO2 05/31/20 08:37 97.4 61 17 114/60 (78) 92 Nasal Cannula 2.0 I&O- Last 24 Hours up to 6 AM 05/31/20 06:00 Intake Total 870 ml Output Total 900 ml Balance -30 ml Laboratory Data 24H LABS Laboratory Tests 2 05/31/20 08:19: Immature Granulocyte % (Auto) 1.1, Neutrophils (%) (Auto) 64.2, Lymphocytes (%) (Auto) 18.1L, Monocytes (%) (Auto) 16.4H, Eosinophils (%) (Auto) 0.1, Basophils (%) (Auto) 0.1, Neutrophils # (Auto) 4.8, Lymphocytes # (Auto) 1.3L, Monocytes # (Auto) 1.2H, Eosinophils # (Auto) 0.0, Basophils # (Auto) 0.0, Nucleated Red Blood Cells % (auto) 0.0, Prothrombin Time 14.5H, Prothromb Time International Ratio 1.11, Activated Partial Thromboplast Time 33.0, Fibrinogen 322, Anion Gap 7L, Glomerular Filtration Rate > 60.0, Calcium Level 8.6L, Magnesium Level 1.8, Ferritin 166, Total Bilirubin 0.4, Direct Bilirubin 0.1, Aspartate Amino Transf (AST/SGOT) 15, Alanine Aminotransferase (ALT/SGPT) 33, Alkaline Phosphatase 76, Lactate Dehydrogenase 162, Total Creatine Kinase 23L, Troponin I < 0.02, EC-Aki-G-Type Natriuretic Peptide 207, Total Protein 6.2L, Albumin 2.3L, Albumin/Globulin Ratio 0.6 CBC/BMP Laboratory Tests 05/31/20 08:19 Microbiology Microbiology 05/29/20 Blood Culture - Preliminary, Resulted No growth after 24 hours . All specim... 05/29/20 Blood Culture - Preliminary, Resulted No growth after 24 hours . All specim... NIESHA ZURITA MD May 31, 2020 12:20
[2020-05-31] MEDS: ENOXAPARIN 40MG/0.4ML SYRINGE (J1650 PER 10MG) SC SCH (20:30)
[2020-05-31] MEDS: MIRTAZAPINE 15 MG TAB PO SCH (20:30)
[2020-06-01] VITALS (7 sets, daily range): BP systolic 105–133; BP diastolic 56–76; O2SAT 94–97
[2020-06-01] MEDS: LEVOTHYROXINE 75MCG TABLET (0.075MG) PO SCH (06:16)
[2020-06-01 06:40] LABS: BASO % 0.3 % (0.0-1.0); EOS % 0.1 % (0.0-3.0); HEMATOCRIT 39.5 % (42.0-52.0); HEMOGLOBIN 12.6 g/dl (13.5-17.5); LYMPH # 1.2 10^3/uL (1.5-5.0); MEAN CORPUSCULAR HEMOGLOBIN 30.5 pg (27.0-33.0); MEAN CORPUSCULAR HGB CONC 31.9 g/dl (32.0-36.5); MEAN CORPUSCULAR VOLUME 95.6 fl (80.0-96.0); MONO # 1.2 10^3/uL (0.0-0.8); MONO % 15.6 % (0.0-5.0); NEUTROPHILS # 5.1 10^3/uL (1.5-8.5); NEUTROPHILS % 66.6 % (36.0-66.0); PLATELET COUNT, AUTOMATED 259 10^3/uL (150-450); RED BLOOD COUNT 4.13 10^6/uL (4.30-6.10); WHITE BLOOD COUNT 7.6 10^3/uL (4.0-10.0)
[2020-06-01 06:58] LABS: BLOOD UREA NITROGEN 23 MG/DL (7-18); CALCIUM LEVEL 8.4 MG/DL (8.8-10.2); CARBON DIOXIDE LEVEL 29 MEQ/L (21-32); CHLORIDE LEVEL 103 MEQ/L (98-107); CREATININE FOR GFR 0.82 MG/DL (0.70-1.30); GLOMERULAR FILTRATION RATE > 60.0 (>35); GLUCOSE, FASTING 81 MG/DL (70-100); MAGNESIUM LEVEL 1.7 MG/DL (1.8-2.4); POTASSIUM SERUM 4.3 MEQ/L (3.5-5.1); SODIUM LEVEL 140 MEQ/L (136-145)
[2020-06-01] MEDS ORDERED: MAG SULF 1GM/100ML (MAG RUN) 1 GM in IV 1 EA IV ONE (07:00)
[2020-06-01] MEDS: TIOTROPIUM INHALER/CAPSULE (SPIRIVA) INH SCH (08:00)
[2020-06-01] MEDS: ALBUTEROL 90 MCG/ACT 8GM HFA INHALER INH SCH ×5 (08:00→20:00)
[2020-06-01] MEDS: ADVAIR HFA 230/21MCG INHALER INH SCH ×2 (08:00→20:00)
[2020-06-01] MEDS: PANTOPRAZOLE 20 MG TAB PO SCH (08:47)
[2020-06-01] MEDS: ASPIRIN 81 MG ENTERIC TAB PO SCH (08:47)
[2020-06-01] MEDS: DOXYCYCLINE HYCLATE 100MG TABLET PO SCH (08:47)
[2020-06-01] MEDS ORDERED: DOXY100C PO (10:47)
[2020-06-01] MEDS ORDERED: PANT20TA6 PO (10:47)
[2020-06-01] MEDS ORDERED: PROAAER10 INH (10:47)
[2020-06-01] MEDS ORDERED: ASPI81TAEC PO (10:47)
--- NOTE | 2020-06-01 14:33 | IPNPDOC ---
Text Note Date of Service The patient was seen on 06/01/20. NOTE Subjective: Patient is an 85-year-old male (resident of [facility]) with a PMHx of COPD (on 2.5 L O2 at night), was treated for COVID19 from 05/24-05/26 is discharged home with supplemental oxygen. Patient was having difficulty wearing and titrating his oxygen flow family was unable to provide 24/7 care. Patient was brought back to the hospital for further evaluation and treatment and likely placement / rehabilitation. Patient was seen and examined at the bedside. Currently patient denies any nausea, vomiting, abdominal pain, diarrhea, or urinary discomfort. Patient reports that his breathing is relatively stable without any significant cough. Denies any chest pain or palpitations. Objective: Vitals (See below) General: Lying in bed, no acute distress, comfortable, Awake / Alert HEENT: NC, AT CVS: RRR, +S1S2 Lungs: Fair air entry b/l, -w/r/r Abdomen: Soft, ND, NT Extremities: - Edema, - Calf tenderness Imaging: CTA 05/29: 1. There is no evidence of a pulmonary embolus 2. Chronic changes and exam limitations as described above. CXR 05/29: Stable appearing chronic changes. Assessment and plan: COVID19 infection - Currently patient appears to be stable. Denies any significant shortness of breath or cough - Has been on baseline of 2 L nasal cannula throughout this admission - Recent admission from 05/24-05/26; COVID positive on 05/24 - c/w Dexamethasone; will discontinue within 24 hours - c/w Incentive spirometer - Will DC doxycycline - PFS on board; looking into rehabilitation / swing bed / family care with 24-7 coverage COPD with chronic respiratory failure - Patient uses 2.5 LPM O2 at night at home - CXR without infiltrate - c/w inhaled therapy as ordered Hypothyroidism - c/w Levothyroxine NAIR - Chronic Chronic Anemia History of colon cancer (2009) ChronicMonoclonal gammopathy of uncertain significance GERD - c/w Protonix DVT prophylaxis - c/w Lovenox Disposition: - PT recommending home with 24/7 care or rehabilitation - Currently looking into swing bed, options at this time - Will transition to ALC status VS,Fishbone, I+O VS, Fishbone, I+O Laboratory Tests 06/01/20 05:40 Vital Signs Date Time Temp Pulse Resp B/P (MAP) Pulse Ox O2 Delivery O2 Flow Rate FiO2 06/01/20 13:16 97 Nasal Cannula 2.0 06/01/20 07:53 97.6 71 19 133/76 (95) I&O- Last 24 Hours up to 6 AM 06/01/20 05:59 Intake Total 900 ml Output Total 650 ml Balance 250 ml DUNG LEWIS MD Jun 01, 2020 14:33
[2020-06-01] MEDS: ENOXAPARIN 40MG/0.4ML SYRINGE (J1650 PER 10MG) SC SCH (23:25)
[2020-06-01] MEDS: MIRTAZAPINE 15 MG TAB PO SCH (23:25)
[2020-06-02] VITALS: O2SAT 95
[2020-06-02 06:00] VITALS: O2SAT 95
[2020-06-02] MEDS: LEVOTHYROXINE 75MCG TABLET (0.075MG) PO SCH (06:20)
[2020-06-02 06:39] VITALS: BP 122/67
[2020-06-02 07:41] LABS: BASO % 0.1 % (0.0-1.0); HEMATOCRIT 39.1 % (42.0-52.0); HEMOGLOBIN 12.5 g/dl (13.5-17.5); LYMPH # 1.2 10^3/uL (1.5-5.0); LYMPH % 17.3 % (24.0-44.0); MEAN CORPUSCULAR HEMOGLOBIN 30.6 pg (27.0-33.0); MEAN CORPUSCULAR VOLUME 95.6 fl (80.0-96.0); MONO # 1.4 10^3/uL (0.0-0.8); MONO % 20.6 % (0.0-5.0); NEUTROPHILS % 60.2 % (36.0-66.0); PLATELET COUNT, AUTOMATED 226 10^3/uL (150-450); RED BLOOD COUNT 4.09 10^6/uL (4.30-6.10); WHITE BLOOD COUNT 6.7 10^3/uL (4.0-10.0)
[2020-06-02 07:59] LABS: INR 1.14; PROTHROMBIN TIME 14.9 SECONDS (12.5-14.3)
[2020-06-02 08:00] LABS: PARTIAL THROMBOPLASTIN TIME 38.7 SECONDS (24.2-38.5)
[2020-06-02] MEDS: ALBUTEROL 90 MCG/ACT 8GM HFA INHALER INH SCH ×4 (08:00→20:25)
[2020-06-02] MEDS: TIOTROPIUM INHALER/CAPSULE (SPIRIVA) INH SCH (08:04)
[2020-06-02] MEDS: ADVAIR HFA 230/21MCG INHALER INH SCH ×2 (08:04→20:27)
[2020-06-02 08:20] LABS: ALBUMIN 2.1 GM/DL (3.2-5.2); ALT/SGPT 35 U/L (12-78); BILIRUBIN,DIRECT 0.2 MG/DL (0.0-0.2); BILIRUBIN,TOTAL 0.3 MG/DL (0.2-1.0); BLOOD UREA NITROGEN 21 MG/DL (7-18); CALCIUM LEVEL 8.2 MG/DL (8.8-10.2); CARBON DIOXIDE LEVEL 34 MEQ/L (21-32); CHLORIDE LEVEL 104 MEQ/L (98-107); CPK CREATINE PHOSPHOKINASE 22 U/L (39-308); CREATININE FOR GFR 0.94 MG/DL (0.70-1.30); FERRITIN 342 NG/ML (26-388); GLOMERULAR FILTRATION RATE > 60.0 (>35); GLUCOSE, FASTING 81 MG/DL (70-100); LDH LACTATE DEHYDROGENASE 202 U/L (87-241); MAGNESIUM LEVEL 1.7 MG/DL (1.8-2.4); NT-PRO BNP 180 PG/ML (<450); POTASSIUM SERUM 4.8 MEQ/L (3.5-5.1); SODIUM LEVEL 139 MEQ/L (136-145); TOTAL PROTEIN 5.8 GM/DL (6.4-8.2); TROPONIN I < 0.02 NG/ML (< 0.10)
[2020-06-02 08:40] VITALS: O2SAT 94
[2020-06-02] MEDS: ASPIRIN 81 MG ENTERIC TAB PO SCH (08:49)
[2020-06-02] MEDS: PANTOPRAZOLE 20 MG TAB PO SCH (08:49)
[2020-06-02] MEDS: MIRTAZAPINE 15 MG TAB PO SCH (20:24)
[2020-06-02] MEDS: ENOXAPARIN 40MG/0.4ML SYRINGE (J1650 PER 10MG) SC SCH (20:25)
[2020-06-02] MEDS: ALBUTEROL 90 MCG/ACT 8GM HFA INHALER INH PRN (21:01)
[2020-06-03 00:04] VITALS: O2SAT 94
[2020-06-03 04:17] VITALS: BP 131/78
[2020-06-03] MEDS: LEVOTHYROXINE 75MCG TABLET (0.075MG) PO SCH (05:01)
[2020-06-03 07:08] LABS: BASO % 0.2 % (0.0-1.0); EOS % 0.2 % (0.0-3.0); HEMATOCRIT 38.5 % (42.0-52.0); HEMOGLOBIN 12.5 g/dl (13.5-17.5); LYMPH # 1.2 10^3/uL (1.5-5.0); LYMPH % 19.5 % (24.0-44.0); MEAN CORPUSCULAR HEMOGLOBIN 31.1 pg (27.0-33.0); MEAN CORPUSCULAR HGB CONC 32.5 g/dl (32.0-36.5); MEAN CORPUSCULAR VOLUME 95.8 fl (80.0-96.0); MONO # 1.1 10^3/uL (0.0-0.8); MONO % 17.1 % (0.0-5.0); NEUTROPHILS # 3.9 10^3/uL (1.5-8.5); NEUTROPHILS % 61.4 % (36.0-66.0); PLATELET COUNT, AUTOMATED 225 10^3/uL (150-450); RED BLOOD COUNT 4.02 10^6/uL (4.30-6.10); WHITE BLOOD COUNT 6.4 10^3/uL (4.0-10.0)
[2020-06-03 07:29] LABS: BLOOD UREA NITROGEN 20 MG/DL (7-18); CALCIUM LEVEL 8.2 MG/DL (8.8-10.2); CARBON DIOXIDE LEVEL 30 MEQ/L (21-32); CHLORIDE LEVEL 105 MEQ/L (98-107); CREATININE FOR GFR 0.78 MG/DL (0.70-1.30); GLOMERULAR FILTRATION RATE > 60.0 (>35); GLUCOSE, FASTING 84 MG/DL (70-100); MAGNESIUM LEVEL 1.8 MG/DL (1.8-2.4); POTASSIUM SERUM 4.4 MEQ/L (3.5-5.1); SODIUM LEVEL 142 MEQ/L (136-145)
[2020-06-03 08:00] VITALS: BP 128/75
[2020-06-03] MEDS: ALBUTEROL 90 MCG/ACT 8GM HFA INHALER INH SCH ×4 (08:00→19:46)
[2020-06-03] MEDS: ADVAIR HFA 230/21MCG INHALER INH SCH ×2 (08:10→19:46)
[2020-06-03] MEDS: TIOTROPIUM INHALER/CAPSULE (SPIRIVA) INH SCH (08:10)
[2020-06-03] MEDS: PANTOPRAZOLE 20 MG TAB PO SCH (09:12)
[2020-06-03] MEDS: ASPIRIN 81 MG ENTERIC TAB PO SCH (09:12)
[2020-06-03] MEDS: MIRTAZAPINE 15 MG TAB PO SCH (19:45)
[2020-06-03] MEDS: ENOXAPARIN 40MG/0.4ML SYRINGE (J1650 PER 10MG) SC SCH (19:45)
[2020-06-04 04:00] VITALS: BP 108/66
[2020-06-04] MEDS: LEVOTHYROXINE 75MCG TABLET (0.075MG) PO SCH (06:03)
[2020-06-04 06:16] LABS: BASO % 0.2 % (0.0-1.0); HEMATOCRIT 39.9 % (42.0-52.0); LYMPH # 1.2 10^3/uL (1.5-5.0); LYMPH % 19.6 % (24.0-44.0); MEAN CORPUSCULAR HEMOGLOBIN 31.1 pg (27.0-33.0); MEAN CORPUSCULAR HGB CONC 32.6 g/dl (32.0-36.5); MEAN CORPUSCULAR VOLUME 95.5 fl (80.0-96.0); MONO # 1.1 10^3/uL (0.0-0.8); MONO % 18.5 % (0.0-5.0); NEUTROPHILS # 3.5 10^3/uL (1.5-8.5); NEUTROPHILS % 60.2 % (36.0-66.0); PLATELET COUNT, AUTOMATED 239 10^3/uL (150-450); RED BLOOD COUNT 4.18 10^6/uL (4.30-6.10); WHITE BLOOD COUNT 5.9 10^3/uL (4.0-10.0)
[2020-06-04 06:41] LABS: INR 1.13; PROTHROMBIN TIME 14.8 SECONDS (12.5-14.3)
[2020-06-04 06:42] LABS: PARTIAL THROMBOPLASTIN TIME 40.2 SECONDS (24.2-38.5)
[2020-06-04 06:54] LABS: ALBUMIN 2.1 GM/DL (3.2-5.2); ALT/SGPT 38 U/L (12-78); BILIRUBIN,DIRECT 0.1 MG/DL (0.0-0.2); BILIRUBIN,TOTAL 0.3 MG/DL (0.2-1.0); BLOOD UREA NITROGEN 22 MG/DL (7-18); CALCIUM LEVEL 8.4 MG/DL (8.8-10.2); CARBON DIOXIDE LEVEL 33 MEQ/L (21-32); CHLORIDE LEVEL 105 MEQ/L (98-107); CPK CREATINE PHOSPHOKINASE 29 U/L (39-308); CREATININE FOR GFR 0.89 MG/DL (0.70-1.30); FERRITIN 382 NG/ML (26-388); GLOMERULAR FILTRATION RATE > 60.0 (>35); GLUCOSE, FASTING 95 MG/DL (70-100); LDH LACTATE DEHYDROGENASE 227 U/L (87-241); MAGNESIUM LEVEL 1.8 MG/DL (1.8-2.4); NT-PRO BNP 171 PG/ML (<450); POTASSIUM SERUM 4.6 MEQ/L (3.5-5.1); SODIUM LEVEL 142 MEQ/L (136-145); TROPONIN I < 0.02 NG/ML (< 0.10)
[2020-06-04] MEDS: ADVAIR HFA 230/21MCG INHALER INH SCH ×2 (07:39→19:28)
[2020-06-04] MEDS: TIOTROPIUM INHALER/CAPSULE (SPIRIVA) INH SCH (07:40)
[2020-06-04] MEDS: ALBUTEROL 90 MCG/ACT 8GM HFA INHALER INH SCH ×4 (07:40→20:00)
[2020-06-04] MEDS: PANTOPRAZOLE 20 MG TAB PO SCH (08:49)
[2020-06-04] MEDS: ASPIRIN 81 MG ENTERIC TAB PO SCH (08:49)
[2020-06-04] MEDS: ALBUTEROL 90 MCG/ACT 8GM HFA INHALER INH PRN (17:49)
--- NOTE | 2020-06-04 18:24 | REP ---
INDICATION: SOB. COMPARISON: Comparison chest x-ray 29 May 2020. TECHNIQUE: Portable upright AP chest radiograph. FINDINGS: The lungs are hyperinflated consistent with COPD. Bibasilar interstitial fibrosis pattern is again seen unchanged. Heart is not enlarged. No focal infiltrate is seen. No acute bony abnormality.. IMPRESSION: Hyperinflation consistent with COPD. Bibasilar interstitial fibrosis. No acute infiltrate.. <Electronically signed by Sae Wolf > 06/04/20 [id number]
[2020-06-04 18:55] LABS: ABG BASE EXCESS -1.1 (-2.0-2.0); ABG PARTIAL PRESSURE CO2 32.6 mmHg (35.0-45.0); ABG PARTIAL PRESSURE O2 60.1 mmHg (75.0-100.0); ABG STANDARD HCO3 23.4 MEQ/L (22.0-26.0); ABG pH (ARTERIAL) 7.448 UNITS (7.350-7.450)
[2020-06-04 19:01] LABS: BASO % 0.5 % (0.0-1.0); EOS % 0.4 % (0.0-3.0); HEMATOCRIT 46.1 % (42.0-52.0); HEMOGLOBIN 14.8 g/dl (13.5-17.5); LYMPH # 1.5 10^3/uL (1.5-5.0); LYMPH % 18.1 % (24.0-44.0); MEAN CORPUSCULAR HEMOGLOBIN 30.7 pg (27.0-33.0); MEAN CORPUSCULAR HGB CONC 32.1 g/dl (32.0-36.5); MEAN CORPUSCULAR VOLUME 95.6 fl (80.0-96.0); MONO # 1.6 10^3/uL (0.0-0.8); MONO % 19.4 % (0.0-5.0); NEUTROPHILS % 59.6 % (36.0-66.0); PLATELET COUNT, AUTOMATED 312 10^3/uL (150-450); RED BLOOD COUNT 4.82 10^6/uL (4.30-6.10); WHITE BLOOD COUNT 8.4 10^3/uL (4.0-10.0)
[2020-06-04 19:45] LABS: ALBUMIN 2.6 GM/DL (3.2-5.2); ALT/SGPT 54 U/L (12-78); BILIRUBIN,TOTAL 0.5 MG/DL (0.2-1.0); BLOOD UREA NITROGEN 22 MG/DL (7-18); CALCIUM LEVEL 8.9 MG/DL (8.8-10.2); CARBON DIOXIDE LEVEL 24 MEQ/L (21-32); CHLORIDE LEVEL 104 MEQ/L (98-107); CREATININE FOR GFR 1.11 MG/DL (0.70-1.30); GLOMERULAR FILTRATION RATE > 60.0 (>35); GLUCOSE, FASTING 120 MG/DL (70-100); POTASSIUM SERUM 4.7 MEQ/L (3.5-5.1); SODIUM LEVEL 140 MEQ/L (136-145); TOTAL PROTEIN 7.4 GM/DL (6.4-8.2)
[2020-06-04 20:00] VITALS: BP 105/66
[2020-06-04] MEDS: MIRTAZAPINE 15 MG TAB PO SCH (20:42)
[2020-06-04] MEDS: ENOXAPARIN 40MG/0.4ML SYRINGE (J1650 PER 10MG) SC SCH (20:42)
[2020-06-05 06:00] VITALS: BP 110/55
[2020-06-05] MEDS: LEVOTHYROXINE 75MCG TABLET (0.075MG) PO SCH (06:31)
[2020-06-05] MEDS: ALBUTEROL 90 MCG/ACT 8GM HFA INHALER INH SCH ×4 (08:00→20:00)
[2020-06-05] MEDS: TIOTROPIUM INHALER/CAPSULE (SPIRIVA) INH SCH (08:04)
[2020-06-05] MEDS: ADVAIR HFA 230/21MCG INHALER INH SCH ×2 (08:04→20:00)
[2020-06-05] MEDS: PANTOPRAZOLE 20 MG TAB PO SCH (09:14)
[2020-06-05] MEDS: ASPIRIN 81 MG ENTERIC TAB PO SCH (09:14)
[2020-06-05 10:05] VITALS: O2SAT 91
[2020-06-05] MEDS: hydrOXYzine 25 MG TAB PO PRN (11:48)
[2020-06-05 12:52] LABS: BASO % 0.2 % (0.0-1.0); HEMATOCRIT 43.5 % (42.0-52.0); HEMOGLOBIN 14.1 g/dl (13.5-17.5); LYMPH # 0.6 10^3/uL (1.5-5.0); LYMPH % 8.3 % (24.0-44.0); MEAN CORPUSCULAR HEMOGLOBIN 31.1 pg (27.0-33.0); MEAN CORPUSCULAR HGB CONC 32.4 g/dl (32.0-36.5); MEAN CORPUSCULAR VOLUME 95.8 fl (80.0-96.0); MONO # 0.7 10^3/uL (0.0-0.8); MONO % 10.3 % (0.0-5.0); NEUTROPHILS # 5.3 10^3/uL (1.5-8.5); NEUTROPHILS % 80.3 % (36.0-66.0); PLATELET COUNT, AUTOMATED 222 10^3/uL (150-450); RED BLOOD COUNT 4.54 10^6/uL (4.30-6.10); WHITE BLOOD COUNT 6.6 10^3/uL (4.0-10.0)
[2020-06-05 13:19] LABS: ALBUMIN 2.4 GM/DL (3.2-5.2); ALT/SGPT 53 U/L (12-78); BILIRUBIN,TOTAL 0.7 MG/DL (0.2-1.0); BLOOD UREA NITROGEN 24 MG/DL (7-18); CALCIUM LEVEL 8.5 MG/DL (8.8-10.2); CARBON DIOXIDE LEVEL 23 MEQ/L (21-32); CHLORIDE LEVEL 104 MEQ/L (98-107); CREATININE FOR GFR 0.82 MG/DL (0.70-1.30); GLOMERULAR FILTRATION RATE > 60.0 (>35); GLUCOSE, FASTING 121 MG/DL (70-100); POTASSIUM SERUM 5.1 MEQ/L (3.5-5.1); SODIUM LEVEL 139 MEQ/L (136-145); TOTAL PROTEIN 7.1 GM/DL (6.4-8.2)
[2020-06-05 20:00] VITALS: BP 110/52
[2020-06-05] MEDS: MIRTAZAPINE 15 MG TAB PO SCH (20:50)
[2020-06-05] MEDS: ENOXAPARIN 40MG/0.4ML SYRINGE (J1650 PER 10MG) SC SCH (20:51)
[2020-06-06 04:00] VITALS: BP 118/64
[2020-06-06 06:00] LABS: BASO % 0.2 % (0.0-1.0); HEMATOCRIT 39.4 % (42.0-52.0); HEMOGLOBIN 12.2 g/dl (13.5-17.5); LYMPH # 1.1 10^3/uL (1.5-5.0); LYMPH % 22.9 % (24.0-44.0); MEAN CORPUSCULAR HEMOGLOBIN 29.9 pg (27.0-33.0); MEAN CORPUSCULAR VOLUME 96.6 fl (80.0-96.0); MONO % 19.5 % (0.0-5.0); NEUTROPHILS # 2.8 10^3/uL (1.5-8.5); NEUTROPHILS % 56.6 % (36.0-66.0); PLATELET COUNT, AUTOMATED 227 10^3/uL (150-450); RED BLOOD COUNT 4.08 10^6/uL (4.30-6.10)
[2020-06-06 06:24] LABS: BLOOD UREA NITROGEN 27 MG/DL (7-18); CALCIUM LEVEL 8.4 MG/DL (8.8-10.2); CARBON DIOXIDE LEVEL 31 MEQ/L (21-32); CHLORIDE LEVEL 103 MEQ/L (98-107); CREATININE FOR GFR 0.93 MG/DL (0.70-1.30); GLOMERULAR FILTRATION RATE > 60.0 (>35); GLUCOSE, FASTING 111 MG/DL (70-100); POTASSIUM SERUM 4.7 MEQ/L (3.5-5.1); SODIUM LEVEL 141 MEQ/L (136-145)
[2020-06-06] MEDS: LEVOTHYROXINE 75MCG TABLET (0.075MG) PO SCH (06:50)
[2020-06-06] MEDS: ALBUTEROL 90 MCG/ACT 8GM HFA INHALER INH SCH ×4 (08:00→20:31)
[2020-06-06] MEDS: ADVAIR HFA 230/21MCG INHALER INH SCH ×2 (08:07→20:32)
[2020-06-06] MEDS: TIOTROPIUM INHALER/CAPSULE (SPIRIVA) INH SCH (08:07)
[2020-06-06] MEDS: ASPIRIN 81 MG ENTERIC TAB PO SCH (08:29)
[2020-06-06] MEDS: PANTOPRAZOLE 20 MG TAB PO SCH (08:29)
[2020-06-06 11:33] VITALS: O2SAT 92
[2020-06-06] MEDS ORDERED: PILL CUTTER 1 EACH XX PRN (12:15)
--- NOTE | 2020-06-06 12:27 | MHIPNPDOC ---
[facility] Progress Note Progress Note DATE OF SERVICE: 06/06/20 HISTORY: As per previous notes: " 85 yo M, hx COPD (2.5LPM at night), [facility] resident,treated for covid 05/24-05/26/20, was discharged on home O2 but had issues with wearing NC and titrating O2 flow. Patient's daughters (Harman: [phone]) are unable to provide 24/7 care and help with O2 supply, nor is [facility] able to take patient as they are on lock down according to family. PFS assisting with placement, per PT recommending rehab if family cannot care 24/7" VITAL SIGNS: See below. NEW TEST RESULTS: See below CURRENT MEDICATIONS: See below. MENTAL STATUS EXAMINATION: Patient is a 85-year old male, who is alert, wearing personal clothes ( a red sweatshirt), with O2 by nasal cannula, laying on hospital bed. Speech: Is sparse, perseverative, repeats repeatedly that he wants to go home. Not spontaneous, not fluent, monotone, single word responses, needs to be prompted Thought processes including: He seems to be having problems processing some of the information regarding covid, depression and stress. His thought process is not disorganized Thought content: positive for angry thoughts, he denies suicidal/homicidal ideation. Abstract reasoning, and computation: Not able to assess because he is not coop erative at this time. Description of associations: not loose. Description of abnormal or psychotic thoughts: he doesn't seem paranoid but he is guarded and refuses to cooperate with interview. He was not responding to internal stimuli Judgment: Limited Insight: Limited Orientation: to place, person and situation Recent and remote memory: unable to assess, patient is uncooperative Attention span and concentration: fair Fund of knowledge: unable to assess, patient is uncooperative Mood: irritable/angry. Affect: congruent with mood DIAGNOSES: 1. R/O Major Depressive disorder secondary to oter medical condition (covid) 2. Covid 3. Limited social/family support ASSESSMENT: The patient is laying in bad, receiving O2 by nasal cannula. He refused to answer most of my questions but he said he was irritable, he denied having sleep or appetite problems but was able to express his frustration by saying he wanted to go home. He is not happy being at the hospital but he doesn't have an aggressive or violent attitude against staff ( one of the covid unit Nurses, Eneida Olivera, was able to help with the zoom session). He doesn't seem to fully understand what covid is and how it can contribute to depression and anxiety. I tried to speak with him about that subject but he was uncooperative and didn't engage in the conversation/refused to answer. I think he might be depressed and his irritability might be the result of that depression. Not being able to fully comprehend what covid is is probably making it worse. This fiction writer wrote with Dr. Almeida and discussed the case. Explained the patient would benefit from a small dose of Sertraline 25 mgs ( 1/2 tab PO tonight) and 1 tablet as of tomorrow, June 07. Discussed with Dr. Almeida the risks of hyponatremia that are always a risk with SSRI'S/SNRI'S nad the possibility of QTc prolongation for him to have sodium levels and ECG's to make sure he doesn't develop any of this possible side effects. MANAGEMENT PLAN: As above TIME SPENT: 10 minutes. Vital Signs Vital Signs Date Time Temp Pulse Resp B/P (MAP) Pulse Ox O2 Delivery O2 Flow Rate FiO2 06/06/20 11:33 92 Nasal Cannula 2.0 06/06/20 04:00 98.2 69 18 118/64 (82) Laboratory Data 24H Labs Laboratory Tests 2 06/05/20 12:40: Immature Granulocyte % (Auto) 0.9, Neutrophils (%) (Auto) 80.3H, Lymphocytes (%) (Auto) 8.3L, Monocytes (%) (Auto) 10.3H, Eosinophils (%) (Auto) 0.0, Basophils (%) (Auto) 0.2, Neutrophils # (Auto) 5.3, Lymphocytes # (Auto) 0.6L, Monocytes # (Auto) 0.7, Eosinophils # (Auto) 0.0, Basophils # (Auto) 0.0, Nucleated Red Blood Cells % (auto) 0.0, Anion Gap 12, Glomerular Filtration Rate > 60.0, Calcium Level 8.5L, Magnesium Level 2.0, Total Bilirubin 0.7, Aspartate Amino Transf (AST/SGOT) 40H, Alanine Aminotransferase (ALT/SGPT) 53, Alkaline Phosphatase 86, Total Protein 7.1, Albumin 2.4L, Albumin/Globulin Ratio 0.5 06/06/20 05:41: Immature Granulocyte % (Auto) 0.8, Neutrophils (%) (Auto) 56.6, Lymphocytes (%) (Auto) 22.9L, Monocytes (%) (Auto) 19.5H, Eosinophils (%) (Auto) 0.0, Basophils (%) (Auto) 0.2, Neutrophils # (Auto) 2.8, Lymphocytes # (Auto) 1.1L, Monocytes # (Auto) 1.0H, Eosinophils # (Auto) 0.0, Basophils # (Auto) 0.0, Nucleated Red Blood Cells % (auto) 0.0, Anion Gap 7L, Glomerular Filtration Rate > 60.0, Calcium Level 8.4L, Magnesium Level 2.0 CBC/BMP Laboratory Tests 06/05/20 12:40 06/06/20 05:41 Current Medications Current Medications Medications (Trade) Dose Ordered Sig/Chaka Route PRN Reason Start Time Stop Time Status Last Admin Dose Admin Albuterol Sulfate (Proventil, Ventolin Hfa) 2 puff Q2HP PRN INH SHORTNESS OF BREATH 05/29/20 19:15 06/04/20 17:49 Albuterol Sulfate (Proventil, Ventolin Hfa) 2 puff RQID INH 05/29/20 20:00 06/06/20 11:31 Albuterol/ Ipratropium (Combivent Respimat 100-20mcg) 4 puff Q20M INH 05/29/20 12:45 05/29/20 13:26 DC 05/29/20 13:30 Aspirin (Ecotrin) 81 mg DAILY PO 05/29/20 09:00 06/06/20 08:29 Dexamethasone (Decadron) 2 mg DAILY PO 05/30/20 09:00 06/03/20 18:17 DC 06/03/20 09:12 Dexamethasone (Decadron) 2 mg DAILY PO 06/04/20 18:30 06/06/20 08:29 Doxycycline Hyclate (Vibramycin) 100 mg BID PO 05/29/20 21:00 06/01/20 14:33 DC 06/01/20 08:47 Enoxaparin Sodium (Lovenox) 40 mg QHS SC 05/29/20 21:00 06/05/20 20:51 Home Med (Med Rec Complete!) ASDIRECTED XX 05/29/20 17:30 05/29/20 17:19 DC Hydroxyzine HCl (Atarax) 25 mg Q8HP PRN PO ANXIETY 06/05/20 11:30 06/05/20 11:48 Levothyroxine Sodium (Synthroid) 75 mcg DAILY@0600 PO 05/30/20 06:00 06/06/20 06:50 Mirtazapine (Remeron) 30 mg QHS PO 05/29/20 21:00 06/05/20 20:50 Pantoprazole Sodium (Protonix) 20 mg DAILY PO 05/30/20 09:00 06/06/20 08:29 Salmeterol Xinafoate/ Fluticasone (Advair Hfa ) 1 puff RBID INH 05/29/20 20:00 06/06/20 08:07 Sertraline HCl (Zoloft) 25 mg QHS PO 06/07/20 21:00 UNV Tiotropium [place] (Spiriva Handihaler) 1 inhalation DAILY@08 INH 05/30/20 08:00 06/06/20 08:07 Allergies Coded Allergies: Sulfa (Sulfonamide Antibiotics) (Verified Allergy, Unknown, 05/24/20) latex (Unverified Allergy, Unknown, LATEX RISK, 05/24/20) Penicillins (Unverified Adverse Reaction, Intermediate, BLOOD IN URINE, 05/24/20) amoxicillin (Unverified Adverse Reaction, Intermediate, BLOOD IN URINE, 05/24/20) clavulanic acid (Unverified Adverse Reaction, Intermediate, BLOOD IN URINE, 05/24/20) CARRIE NIETO MD Jun 06, 2020 12:27
[2020-06-06 15:51] VITALS: O2SAT 92
[2020-06-06 19:42] VITALS: BP 125/61
[2020-06-06] MEDS: MIRTAZAPINE 15 MG TAB PO SCH (20:34)
[2020-06-06] MEDS: ENOXAPARIN 40MG/0.4ML SYRINGE (J1650 PER 10MG) SC SCH (20:34)
[2020-06-06] MEDS ORDERED: SERTRALINE HCL 25 MG TABLET PO ONE (21:00)
[2020-06-07 04:13] VITALS: BP 109/62
[2020-06-07] MEDS: LEVOTHYROXINE 75MCG TABLET (0.075MG) PO SCH (05:54)
[2020-06-07 06:31] LABS: BASO % 0.1 % (0.0-1.0); EOS % 0.1 % (0.0-3.0); HEMATOCRIT 38.1 % (42.0-52.0); HEMOGLOBIN 12.3 g/dl (13.5-17.5); LYMPH # 1.2 10^3/uL (1.5-5.0); LYMPH % 16.9 % (24.0-44.0); MEAN CORPUSCULAR HEMOGLOBIN 30.9 pg (27.0-33.0); MEAN CORPUSCULAR HGB CONC 32.3 g/dl (32.0-36.5); MEAN CORPUSCULAR VOLUME 95.7 fl (80.0-96.0); MONO % 14.5 % (0.0-5.0); NEUTROPHILS # 4.7 10^3/uL (1.5-8.5); PLATELET COUNT, AUTOMATED 237 10^3/uL (150-450); RED BLOOD COUNT 3.98 10^6/uL (4.30-6.10)
[2020-06-07 06:52] LABS: BLOOD UREA NITROGEN 27 MG/DL (7-18); CALCIUM LEVEL 8.3 MG/DL (8.8-10.2); CARBON DIOXIDE LEVEL 32 MEQ/L (21-32); CHLORIDE LEVEL 107 MEQ/L (98-107); GLOMERULAR FILTRATION RATE > 60.0 (>35); GLUCOSE, FASTING 102 MG/DL (70-100); MAGNESIUM LEVEL 1.8 MG/DL (1.8-2.4); POTASSIUM SERUM 4.2 MEQ/L (3.5-5.1); SODIUM LEVEL 143 MEQ/L (136-145)
[2020-06-07] MEDS: ADVAIR HFA 230/21MCG INHALER INH SCH ×2 (07:58→20:01)
[2020-06-07] MEDS: ALBUTEROL 90 MCG/ACT 8GM HFA INHALER INH SCH ×4 (07:59→20:01)
[2020-06-07] MEDS: TIOTROPIUM INHALER/CAPSULE (SPIRIVA) INH SCH (07:59)
[2020-06-07] MEDS: PANTOPRAZOLE 20 MG TAB PO SCH (08:30)
[2020-06-07] MEDS: ASPIRIN 81 MG ENTERIC TAB PO SCH (08:30)
[2020-06-07] MEDS: ENOXAPARIN 40MG/0.4ML SYRINGE (J1650 PER 10MG) SC SCH (20:00)
[2020-06-07] MEDS: SERTRALINE HCL 25 MG TABLET PO SCH (20:00)
[2020-06-07] MEDS: MIRTAZAPINE 15 MG TAB PO SCH (20:00)
[2020-06-07] MEDS ORDERED: methylPREDNISolone 125MG 2ML VIAL IV ONE (23:00)
[2020-06-07] MEDS: ALBUTEROL 90 MCG/ACT 8GM HFA INHALER INH PRN (23:07)
[2020-06-07] MEDS ORDERED: guaiFENesin 200 MG TAB PO PRN (23:30)
--- NOTE | 2020-06-08 00:01 | REPVR ---
PROCEDURE INFORMATION: Exam: XR Chest, 1 View Exam date and time: 06/07/2020 11:53 PM Age: 85 years old Clinical indication: Shortness of breath; Additional info: Sob/hypoxia TECHNIQUE: Imaging protocol: XR of the chest Views: 1 view. COMPARISON: DC PORTABLE CHEST X-RAY 06/04/2020 6:05 PM FINDINGS: Lungs: There is pulmonary hyperinflation with coarse interstitium. There is increased left infrahilar and left base atelectasis and scar with decreased delineation of the left hemidiaphragm. Pleural spaces: Unremarkable. No pleural effusion. No pneumothorax. Heart/Mediastinum: The heart and mediastinum are unchanged. Bones/joints: Unremarkable. IMPRESSION: 1. Increased left infrahilar and left base atelectasis with decreased delineation of the left hemidiaphragm since 06/04/2020. 2. Otherwise stable chest. Electronically signed by: Tai Huang On 06/08/2020 00:00:59 AM
[2020-06-08] MEDS: LEVOTHYROXINE 75MCG TABLET (0.075MG) PO SCH (06:11)
[2020-06-08 06:51] LABS: BASO % 0.2 % (0.0-1.0); HEMATOCRIT 37.9 % (42.0-52.0); HEMOGLOBIN 12.2 g/dl (13.5-17.5); LYMPH # 0.4 10^3/uL (1.5-5.0); LYMPH % 6.1 % (24.0-44.0); MEAN CORPUSCULAR HEMOGLOBIN 30.9 pg (27.0-33.0); MEAN CORPUSCULAR HGB CONC 32.2 g/dl (32.0-36.5); MEAN CORPUSCULAR VOLUME 95.9 fl (80.0-96.0); MONO # 0.1 10^3/uL (0.0-0.8); MONO % 2.2 % (0.0-5.0); NEUTROPHILS # 5.5 10^3/uL (1.5-8.5); NEUTROPHILS % 90.3 % (36.0-66.0); PLATELET COUNT, AUTOMATED 248 10^3/uL (150-450); RED BLOOD COUNT 3.95 10^6/uL (4.30-6.10)
[2020-06-08 07:10] LABS: BLOOD UREA NITROGEN 25 MG/DL (7-18); CALCIUM LEVEL 8.1 MG/DL (8.8-10.2); CARBON DIOXIDE LEVEL 27 MEQ/L (21-32); CHLORIDE LEVEL 108 MEQ/L (98-107); CREATININE FOR GFR 0.85 MG/DL (0.70-1.30); GLOMERULAR FILTRATION RATE > 60.0 (>35); GLUCOSE, FASTING 166 MG/DL (70-100); MAGNESIUM LEVEL 1.7 MG/DL (1.8-2.4); POTASSIUM SERUM 4.7 MEQ/L (3.5-5.1); SODIUM LEVEL 142 MEQ/L (136-145)
[2020-06-08] MEDS: TIOTROPIUM INHALER/CAPSULE (SPIRIVA) INH SCH (07:20)
[2020-06-08] MEDS: ADVAIR HFA 230/21MCG INHALER INH SCH ×2 (07:21→20:32)
[2020-06-08] MEDS: ALBUTEROL 90 MCG/ACT 8GM HFA INHALER INH SCH ×4 (07:21→20:32)
[2020-06-08 08:00] VITALS: BP 132/69
[2020-06-08] MEDS ORDERED: GLYCERIN ADULT SUPP PR PRN (08:00)
[2020-06-08] MEDS: PANTOPRAZOLE 20 MG TAB PO SCH (08:34)
[2020-06-08] MEDS: ASPIRIN 81 MG ENTERIC TAB PO SCH (08:34)
[2020-06-08] MEDS: MIRALAX *UNIT DOSE* 17GM PACKET PO SCH (08:34)
[2020-06-08] MEDS ORDERED: FLEET ENEMA PR PRN (12:30)
[2020-06-08 17:30] VITALS: BP 118/58
[2020-06-08] MEDS: ENOXAPARIN 40MG/0.4ML SYRINGE (J1650 PER 10MG) SC SCH (21:53)
[2020-06-08] MEDS: SERTRALINE HCL 25 MG TABLET PO SCH (21:53)
[2020-06-08] MEDS: MIRTAZAPINE 15 MG TAB PO SCH (21:53)
[2020-06-09 04:00] VITALS: BP 126/56
[2020-06-09] MEDS: LEVOTHYROXINE 75MCG TABLET (0.075MG) PO SCH (06:19)
[2020-06-09 06:26] LABS: BASO % 0.1 % (0.0-1.0); HEMATOCRIT 35.5 % (42.0-52.0); HEMOGLOBIN 11.6 g/dl (13.5-17.5); LYMPH # 1.3 10^3/uL (1.5-5.0); LYMPH % 15.9 % (24.0-44.0); MEAN CORPUSCULAR HEMOGLOBIN 31.2 pg (27.0-33.0); MEAN CORPUSCULAR HGB CONC 32.7 g/dl (32.0-36.5); MEAN CORPUSCULAR VOLUME 95.4 fl (80.0-96.0); MONO # 1.2 10^3/uL (0.0-0.8); MONO % 13.7 % (0.0-5.0); NEUTROPHILS # 5.8 10^3/uL (1.5-8.5); NEUTROPHILS % 69.7 % (36.0-66.0); PLATELET COUNT, AUTOMATED 245 10^3/uL (150-450); RED BLOOD COUNT 3.72 10^6/uL (4.30-6.10); WHITE BLOOD COUNT 8.4 10^3/uL (4.0-10.0)
[2020-06-09 06:43] LABS: BLOOD UREA NITROGEN 24 MG/DL (7-18); CALCIUM LEVEL 8.3 MG/DL (8.8-10.2); CARBON DIOXIDE LEVEL 28 MEQ/L (21-32); CHLORIDE LEVEL 108 MEQ/L (98-107); CREATININE FOR GFR 0.73 MG/DL (0.70-1.30); GLOMERULAR FILTRATION RATE > 60.0 (>35); GLUCOSE, FASTING 105 MG/DL (70-100); MAGNESIUM LEVEL 1.7 MG/DL (1.8-2.4); POTASSIUM SERUM 4.4 MEQ/L (3.5-5.1); SODIUM LEVEL 142 MEQ/L (136-145)
[2020-06-09] MEDS: ADVAIR HFA 230/21MCG INHALER INH SCH ×3 (07:52→20:00)
[2020-06-09] MEDS: ALBUTEROL 90 MCG/ACT 8GM HFA INHALER INH SCH ×4 (07:53→20:00)
[2020-06-09] MEDS: TIOTROPIUM INHALER/CAPSULE (SPIRIVA) INH SCH (07:53)
[2020-06-09] MEDS: MIRALAX *UNIT DOSE* 17GM PACKET PO SCH (08:42)
[2020-06-09] MEDS: ASPIRIN 81 MG ENTERIC TAB PO SCH (08:42)
[2020-06-09] MEDS: PANTOPRAZOLE 20 MG TAB PO SCH (08:42)
[2020-06-09] MEDS: MAG SULF 1GM/100ML (MAG RUN) 1 GM in IV 1 EA IV SCH ×2 (08:43→08:47)
--- NOTE | 2020-06-09 13:57 | IPNPDOC ---
Date Seen The patient was seen on 06/09/20. Progress Note SUBJECTIVE: 85-year-old male (resident of [facility]) with a PMHx of COPD (on 2.5 L O2 at night), was treated for COVID19 from 05/24-05/26 is discharged home with supplemental oxygen. Patient was having difficulty wearing and titrating his oxygen flow family was unable to provide 24/7 care. Patient was brought back to the hospital for further evaluation and treatment and likely placement / rehabilitation. Patient was seen OBJECTIVE PHYSICAL EXAMINATION: VITAL SIGNS: please see below General: NAD, comfortable HEENT: PERRLA, EOMI, sclerae clear Neck: supple, normal ROM, no JVD Respiratory: lungs CTAB, no wheeze, no rales, no crackles CVS: RRR, normal S1, S2, no murmurs Abdo: soft, no masses, no hepatosplenomegaly, BS+, no rebound tenderness Extremities: no edema, pulses 2+ MSK: no joint deformities, normal ROM Neuro: no focal neuro deficits, moving all 4 extremities, CN2-12 intact. Strength 5/5 in all 4 extremities. No nystagmus. LABORATORY DATA, IMAGING STUDIES, MICROBIOLOGY: Please see below. CTA 05/29: 1. There is no evidence of a pulmonary embolus 2. Chronic changes and exam limitations as described above. CXR 05/29: Stable appearing chronic changes. DVT prophylaxis ordered?: ASSESSMENT AND PLAN: COVID19 infection - Currently patient appears to be stable. Denies any significant shortness of breath or cough - Has been on baseline of 2 L nasal cannula throughout this admission - Recent admission from 05/24-05/26; COVID positive on 05/24 - s/p Dexamethasone; - c/w Incentive spirometer - s/p doxycycline - PFS on board; looking into rehabilitation / swing bed / family care with 24-7 coverage Suicidal ideation/depressive disorder - assessed by Dr. Coronado - started on sertraline - D/w Dr. Coronado on 06/09/20, ok to DC sitter. Does not believe this to be suicidal ideation, and likely related to being down due to illness, hospilization - ok to continue sertraline. - monitor sodium, EKGs. COPD with chronic respiratory failure - Patient uses 2.5 LPM O2 at night at home - CXR without infiltrate - c/w inhaled therapy as ordered Hypothyroidism - c/w Levothyroxine NAIR - Chronic Chronic Anemia History of colon cancer (2009) Chronic Monoclonal gammopathy of uncertain significance GERD - c/w Protonix DVT prophylaxis - c/w Lovenox Disposition: - PT recommending home with 27/11 care or rehabilitation - Currently looking into swing bed, options at this time - ALC status at this time. VS, I&O, 24H, Fishbone Vital Signs/I&O Vital Signs Date Time Temp Pulse Resp B/P (MAP) Pulse Ox O2 Delivery O2 Flow Rate FiO2 06/09/20 11:04 3.0 06/09/20 04:00 98.6 80 18 126/56 (79) 90 Nasal Cannula I&O- Last 24 Hours up to 6 AM 06/09/20 05:59 Intake Total 1720 ml Output Total 625 ml Balance 1095 ml Laboratory Data 24H LABS Laboratory Tests 2 06/09/20 06:05: Immature Granulocyte % (Auto) 0.6, Neutrophils (%) (Auto) 69.7H, Lymphocytes (%) (Auto) 15.9L, Monocytes (%) (Auto) 13.7H, Eosinophils (%) (Auto) 0.0, Basophils (%) (Auto) 0.1, Neutrophils # (Auto) 5.8, Lymphocytes # (Auto) 1.3L, Monocytes # (Auto) 1.2H, Eosinophils # (Auto) 0.0, Basophils # (Auto) 0.0, Nucleated Red Blood Cells % (auto) 0.0, Anion Gap 6L, Glomerular Filtration Rate > 60.0, Calcium Level 8.3L, Magnesium Level 1.7L CBC/BMP Laboratory Tests 06/09/20 06:05 NIESHA ZURITA MD Jun 09, 2020 13:56
[2020-06-09 20:00] VITALS: BP 129/65
[2020-06-09] MEDS: ENOXAPARIN 40MG/0.4ML SYRINGE (J1650 PER 10MG) SC SCH (20:42)
[2020-06-09] MEDS: SERTRALINE HCL 25 MG TABLET PO SCH (20:43)
[2020-06-09] MEDS: MIRTAZAPINE 15 MG TAB PO SCH (20:43)
[2020-06-10] MEDS: LEVOTHYROXINE 75MCG TABLET (0.075MG) PO SCH (06:33)
[2020-06-10 07:29] LABS: BASO % 0.1 % (0.0-1.0); EOS # 0.1 10^3/uL (0.0-0.5); EOS % 1.2 % (0.0-3.0); HEMOGLOBIN 12.6 g/dl (13.5-17.5); LYMPH # 1.6 10^3/uL (1.5-5.0); LYMPH % 19.7 % (24.0-44.0); MEAN CORPUSCULAR HEMOGLOBIN 30.8 pg (27.0-33.0); MEAN CORPUSCULAR HGB CONC 32.3 g/dl (32.0-36.5); MEAN CORPUSCULAR VOLUME 95.4 fl (80.0-96.0); MONO # 1.2 10^3/uL (0.0-0.8); NEUTROPHILS # 5.1 10^3/uL (1.5-8.5); NEUTROPHILS % 63.1 % (36.0-66.0); PLATELET COUNT, AUTOMATED 261 10^3/uL (150-450); RED BLOOD COUNT 4.09 10^6/uL (4.30-6.10)
[2020-06-10 07:47] LABS: WHITE BLOOD COUNT 8.1 10^3/uL (4.0-10.0)
[2020-06-10 07:50] LABS: BLOOD UREA NITROGEN 21 MG/DL (7-18); CALCIUM LEVEL 8.2 MG/DL (8.8-10.2); CARBON DIOXIDE LEVEL 28 MEQ/L (21-32); CHLORIDE LEVEL 107 MEQ/L (98-107); CREATININE FOR GFR 0.76 MG/DL (0.70-1.30); GLOMERULAR FILTRATION RATE > 60.0 (>35); GLUCOSE, FASTING 87 MG/DL (70-100); MAGNESIUM LEVEL 2.1 MG/DL (1.8-2.4); POTASSIUM SERUM 4.3 MEQ/L (3.5-5.1); SODIUM LEVEL 139 MEQ/L (136-145)
[2020-06-10] MEDS: ALBUTEROL 90 MCG/ACT 8GM HFA INHALER INH SCH ×4 (08:00→20:58)
[2020-06-10] MEDS: TIOTROPIUM INHALER/CAPSULE (SPIRIVA) INH SCH (09:11)
[2020-06-10 09:12] VITALS: O2SAT 89
[2020-06-10] MEDS: ADVAIR HFA 230/21MCG INHALER INH SCH ×2 (09:12→20:58)
[2020-06-10] MEDS: ASPIRIN 81 MG ENTERIC TAB PO SCH (09:22)
[2020-06-10] MEDS: PANTOPRAZOLE 20 MG TAB PO SCH (09:22)
[2020-06-10] MEDS: MIRALAX *UNIT DOSE* 17GM PACKET PO SCH (09:22)
[2020-06-10 18:00] VITALS: BP 126/68
[2020-06-10 20:00] VITALS: BP 128/64
[2020-06-10] MEDS: ENOXAPARIN 40MG/0.4ML SYRINGE (J1650 PER 10MG) SC SCH (20:16)
[2020-06-10] MEDS: MIRTAZAPINE 15 MG TAB PO SCH (20:16)
[2020-06-10] MEDS: SERTRALINE HCL 25 MG TABLET PO SCH (20:16)
[2020-06-11 04:00] VITALS: BP 113/69
[2020-06-11] MEDS: LEVOTHYROXINE 75MCG TABLET (0.075MG) PO SCH (05:57)
[2020-06-11] MEDS: ALBUTEROL 90 MCG/ACT 8GM HFA INHALER INH SCH ×4 (08:00→20:42)
[2020-06-11] MEDS: ADVAIR HFA 230/21MCG INHALER INH SCH ×2 (08:27→20:43)
[2020-06-11] MEDS: TIOTROPIUM INHALER/CAPSULE (SPIRIVA) INH SCH (08:27)
[2020-06-11 08:30] LABS: BASO % 0.2 % (0.0-1.0); EOS # 0.1 10^3/uL (0.0-0.5); EOS % 0.8 % (0.0-3.0); HEMATOCRIT 39.9 % (42.0-52.0); HEMOGLOBIN 12.8 g/dl (13.5-17.5); LYMPH # 1.4 10^3/uL (1.5-5.0); LYMPH % 14.9 % (24.0-44.0); MEAN CORPUSCULAR HEMOGLOBIN 30.4 pg (27.0-33.0); MEAN CORPUSCULAR HGB CONC 32.1 g/dl (32.0-36.5); MEAN CORPUSCULAR VOLUME 94.8 fl (80.0-96.0); MONO # 1.1 10^3/uL (0.0-0.8); MONO % 12.3 % (0.0-5.0); NEUTROPHILS # 6.6 10^3/uL (1.5-8.5); NEUTROPHILS % 71.1 % (36.0-66.0); PLATELET COUNT, AUTOMATED 252 10^3/uL (150-450); RED BLOOD COUNT 4.21 10^6/uL (4.30-6.10)
[2020-06-11 08:34] LABS: WHITE BLOOD COUNT 9.2 10^3/uL (4.0-10.0)
[2020-06-11 09:04] LABS: ALBUMIN 2.1 GM/DL (3.2-5.2); ALT/SGPT 69 U/L (12-78); BILIRUBIN,DIRECT 0.3 MG/DL (0.0-0.2); BILIRUBIN,TOTAL 0.9 MG/DL (0.2-1.0); BLOOD UREA NITROGEN 19 MG/DL (7-18); C REACTIVE PROTEIN QUANTITATIV 6.61 MG/DL (0.00-0.30); CALCIUM LEVEL 8.3 MG/DL (8.8-10.2); CARBON DIOXIDE LEVEL 25 MEQ/L (21-32); CHLORIDE LEVEL 107 MEQ/L (98-107); CPK CREATINE PHOSPHOKINASE 31 U/L (39-308); CREATININE FOR GFR 0.72 MG/DL (0.70-1.30); FERRITIN 534 NG/ML (26-388); GLOMERULAR FILTRATION RATE > 60.0 (>35); GLUCOSE, FASTING 81 MG/DL (70-100); LDH LACTATE DEHYDROGENASE 306 U/L (87-241); POTASSIUM SERUM 4.7 MEQ/L (3.5-5.1); SODIUM LEVEL 139 MEQ/L (136-145); TROPONIN I < 0.02 NG/ML (< 0.10)
[2020-06-11 09:20] LABS: INR 1.09; PROTHROMBIN TIME 14.3 SECONDS (12.5-14.3)
[2020-06-11 09:21] LABS: PARTIAL THROMBOPLASTIN TIME 34.2 SECONDS (24.2-38.5)
[2020-06-11 09:24] LABS: D-DIMER QUANT 1008.62 ng/ml (<500)
[2020-06-11] MEDS: ASPIRIN 81 MG ENTERIC TAB PO SCH (09:59)
[2020-06-11] MEDS: MIRALAX *UNIT DOSE* 17GM PACKET PO SCH (10:00)
[2020-06-11] MEDS: PANTOPRAZOLE 20 MG TAB PO SCH (10:00)
[2020-06-11 17:15] VITALS: BP 124/86
[2020-06-11] MEDS: SERTRALINE HCL 25 MG TABLET PO SCH (20:01)
[2020-06-11] MEDS: ENOXAPARIN 40MG/0.4ML SYRINGE (J1650 PER 10MG) SC SCH (20:01)
[2020-06-11] MEDS: MIRTAZAPINE 15 MG TAB PO SCH (20:01)
[2020-06-12 06:08] VITALS: BP 126/83
[2020-06-12] MEDS: LEVOTHYROXINE 75MCG TABLET (0.075MG) PO SCH (06:10)
[2020-06-12 07:10] LABS: BASO % 0.2 % (0.0-1.0); EOS # 0.1 10^3/uL (0.0-0.5); HEMATOCRIT 40.8 % (42.0-52.0); LYMPH # 1.1 10^3/uL (1.5-5.0); MEAN CORPUSCULAR HEMOGLOBIN 30.4 pg (27.0-33.0); MEAN CORPUSCULAR HGB CONC 31.9 g/dl (32.0-36.5); MEAN CORPUSCULAR VOLUME 95.6 fl (80.0-96.0); MONO % 12.7 % (0.0-5.0); NEUTROPHILS # 5.8 10^3/uL (1.5-8.5); NEUTROPHILS % 71.2 % (36.0-66.0); PLATELET COUNT, AUTOMATED 258 10^3/uL (150-450); RED BLOOD COUNT 4.27 10^6/uL (4.30-6.10)
[2020-06-12 07:15] LABS: WHITE BLOOD COUNT 8.1 10^3/uL (4.0-10.0)
[2020-06-12 07:42] LABS: BLOOD UREA NITROGEN 23 MG/DL (7-18); CALCIUM LEVEL 8.6 MG/DL (8.8-10.2); CARBON DIOXIDE LEVEL 24 MEQ/L (21-32); CHLORIDE LEVEL 108 MEQ/L (98-107); CREATININE FOR GFR 0.81 MG/DL (0.70-1.30); GLOMERULAR FILTRATION RATE > 60.0 (>35); GLUCOSE, FASTING 73 MG/DL (70-100); MAGNESIUM LEVEL 1.9 MG/DL (1.8-2.4); POTASSIUM SERUM 4.2 MEQ/L (3.5-5.1); SODIUM LEVEL 140 MEQ/L (136-145)
[2020-06-12] MEDS: ALBUTEROL 90 MCG/ACT 8GM HFA INHALER INH SCH ×4 (08:00→20:00)
[2020-06-12] MEDS: ADVAIR HFA 230/21MCG INHALER INH SCH ×2 (08:03→20:11)
[2020-06-12] MEDS: TIOTROPIUM INHALER/CAPSULE (SPIRIVA) INH SCH (08:03)
[2020-06-12] MEDS: ASPIRIN 81 MG ENTERIC TAB PO SCH (09:42)
[2020-06-12] MEDS: PANTOPRAZOLE 20 MG TAB PO SCH (09:42)
[2020-06-12] MEDS: MIRALAX *UNIT DOSE* 17GM PACKET PO SCH (09:42)
[2020-06-12] MEDS: hydrOXYzine 25 MG TAB PO PRN (09:42)
[2020-06-12] MEDS: ENOXAPARIN 40MG/0.4ML SYRINGE (J1650 PER 10MG) SC SCH (20:49)
[2020-06-12] MEDS: MIRTAZAPINE 15 MG TAB PO SCH (20:49)
[2020-06-12] MEDS: SERTRALINE HCL 25 MG TABLET PO SCH (20:49)
[2020-06-13] MEDS: LEVOTHYROXINE 75MCG TABLET (0.075MG) PO SCH (05:13)
[2020-06-13 06:30] VITALS: BP 129/84
[2020-06-13] MEDS: ALBUTEROL 90 MCG/ACT 8GM HFA INHALER INH SCH ×4 (07:21→18:30)
[2020-06-13] MEDS: ADVAIR HFA 230/21MCG INHALER INH SCH ×2 (07:21→18:30)
[2020-06-13] MEDS: TIOTROPIUM INHALER/CAPSULE (SPIRIVA) INH SCH (07:22)
[2020-06-13] MEDS: MIRALAX *UNIT DOSE* 17GM PACKET PO SCH (09:45)
[2020-06-13] MEDS: ASPIRIN 81 MG ENTERIC TAB PO SCH (09:45)
[2020-06-13] MEDS: PANTOPRAZOLE 20 MG TAB PO SCH (09:45)
[2020-06-13] MEDS: ENOXAPARIN 40MG/0.4ML SYRINGE (J1650 PER 10MG) SC SCH (21:22)
[2020-06-13] MEDS: MIRTAZAPINE 15 MG TAB PO SCH (21:22)
[2020-06-13] MEDS: SERTRALINE HCL 25 MG TABLET PO SCH (21:22)
[2020-06-14] MEDS: LEVOTHYROXINE 75MCG TABLET (0.075MG) PO SCH (05:07)
[2020-06-14 06:00] VITALS: BP 128/81
[2020-06-14] MEDS: ADVAIR HFA 230/21MCG INHALER INH SCH ×2 (07:58→20:45)
[2020-06-14] MEDS: ALBUTEROL 90 MCG/ACT 8GM HFA INHALER INH SCH ×4 (07:59→20:44)
[2020-06-14] MEDS: TIOTROPIUM INHALER/CAPSULE (SPIRIVA) INH SCH (08:00)
[2020-06-14] MEDS: MIRALAX *UNIT DOSE* 17GM PACKET PO SCH (09:58)
[2020-06-14] MEDS: ASPIRIN 81 MG ENTERIC TAB PO SCH (09:58)
[2020-06-14] MEDS: PANTOPRAZOLE 20 MG TAB PO SCH (09:58)
[2020-06-14] MEDS: SERTRALINE HCL 25 MG TABLET PO SCH (20:35)
[2020-06-14] MEDS: ENOXAPARIN 40MG/0.4ML SYRINGE (J1650 PER 10MG) SC SCH (20:35)
[2020-06-14] MEDS: MIRTAZAPINE 15 MG TAB PO SCH (20:35)
[2020-06-15] MEDS: LEVOTHYROXINE 75MCG TABLET (0.075MG) PO SCH (05:38)
[2020-06-15 05:59] VITALS: BP 129/77
[2020-06-15] MEDS: ALBUTEROL 90 MCG/ACT 8GM HFA INHALER INH SCH ×4 (08:00→19:46)
[2020-06-15] MEDS: ADVAIR HFA 230/21MCG INHALER INH SCH ×2 (08:18→19:46)
[2020-06-15] MEDS: TIOTROPIUM INHALER/CAPSULE (SPIRIVA) INH SCH (08:18)
[2020-06-15] MEDS: ASPIRIN 81 MG ENTERIC TAB PO SCH (08:40)
[2020-06-15] MEDS: PANTOPRAZOLE 20 MG TAB PO SCH (08:40)
[2020-06-15] MEDS: MIRALAX *UNIT DOSE* 17GM PACKET PO SCH (08:40)
--- NOTE | 2020-06-15 13:05 | IPNPDOC ---
Date Seen The patient was seen on 06/15/20. Progress Note SUBJECTIVE: Walking desaturation test done today: With walking, patient desaturated to 81% on RA, required 4 L to increase to 88%, maintained this on 3-4 L NC. Discussed with nursing. He has no acute complaints on exam. OBJECTIVE: PHYSICAL EXAMINATION: VITAL SIGNS: please see below General: NAD, comfortable HEENT: PERRLA, EOMI, sclerae clear Neck: supple, normal ROM, no JVD Respiratory: decreased breath sounds b/l otherwise lungs CTAB, no wheeze, no rales, no crackles CVS: RRR, normal S1, S2, no murmurs Abdo: soft, no masses, no hepatosplenomegaly, BS+, no rebound tenderness Extremities: no edema, pulses 2+ MSK: no joint deformities, normal ROM Neuro: no focal neuro deficits, moving all 4 extremities, CN2-12 intact. Strength 5/5 in all 4 extremities. No nystagmus. LABORATORY DATA, IMAGING STUDIES, MICROBIOLOGY: Please see below. CXR from 06/07/20: 1. Increased left infrahilar and left base atelectasis with decreased delineation of the left hemidiaphragm since 06/04/2020. 2. Otherwise stable chest CTA 05/29: 1. There is no evidence of a pulmonary embolus 2. Chronic changes and exam limitations as described above. CXR 05/29: Stable appearing chronic changes. DVT prophylaxis ordered?: ASSESSMENT: 85-year-old male (resident of [facility]) with a PMHx of COPD (on 2.5 L O2 at night), was treated for COVID19 from 05/24-05/26 is discharged home with supplemental oxygen. Patient was having difficulty wearing and titrating his oxygen flow family was unable to provide 24/7 care. Patient was brought back to the hospital for further evaluation and treatment and likely placement / rehabilitation. PLAN: Shortness of breath likely multifactorial 2/2 to recent COVID 19 infection, underlying COPD and chronic respiratory failure. - Stable on 2-2.5L mostly at rest, per walking desat test today will likely need 4-5 L NC with activity to keep above or at 88%. - Currently patient stable, denies any significant shortness of breath or cough - Recent admission from 05/24-05/26; COVID positive on 05/24 - CXR from 06/07/20:1. Increased left infrahilar and left base atelectasis with decreased delineation of the left hemidiaphragm since 06/04/2020. 2. Otherwise stable chest -S/p doxy, dexamethasone -c/w Incentive spirometer, inhaled therapy as ordered - PFS on board; looking into rehabilitation / swing bed / family care with 24-7 coverage Suicidal ideation/depressive disorder - Stable, denies SI/HI currently - assessed by Dr. Coronado - D/w Dr. Coronado on 06/09/20, ok to DC sitter. Does not believe this to be suicidal ideation, and likely related to being down due to illness, hospilization - ok to continue sertraline. - C/w sertraline - monitor sodium, EKGs. Hypothyroidism - c/w Levothyroxine NAIR - Chronic Chronic Anemia -Stable History of colon cancer (2009) -F/u with PCP Chronic Monoclonal gammopathy of uncertain significance -F/u o/p GERD - c/w Protonix DVT prophylaxis - c/w Lovenox DISPOSITION: PT recommending home with 24/7 care or rehabilitation. Now that we know he will need O2 with activity, perhaps this will help with determining swing bed options. C/w ALC status. VS, I&O, 24H, Fishbone Vital Signs/I&O Vital Signs Date Time Temp Pulse Resp B/P (MAP) Pulse Ox O2 Delivery O2 Flow Rate FiO2 06/15/20 12:18 18 06/15/20 08:45 2.0 06/15/20 05:59 98.4 89 129/77 (94) 90 Nasal Cannula I&O- Last 24 Hours up to 6 AM 06/15/20 06:00 Intake Total 1280 ml Output Total 750 ml Balance 530 ml Laboratory Data 24H LABS Laboratory Tests 2 06/15/20 11:17: Coronavirus (COVID-19)(PCR) POSITIVEA Current Medications Current Medications Medications (Trade) Dose Ordered Sig/Chaka Route PRN Reason Start Time Stop Time Status Last Admin Dose Admin Albuterol Sulfate (Proventil, Ventolin Hfa) 2 puff Q2HP PRN INH SHORTNESS OF BREATH 05/29/20 19:15 06/07/20 23:07 Albuterol Sulfate (Proventil, Ventolin Hfa) 2 puff RQID INH 05/29/20 20:00 2/9/21 12:17 Albuterol/ Ipratropium (Combivent Respimat 100-20mcg) 4 puff Q20M INH 05/29/20 12:45 05/29/20 13:26 DC 05/29/20 13:30 Aspirin (Ecotrin) 81 mg DAILY PO 05/29/20 09:00 06/15/20 08:40 Dexamethasone (Decadron) 2 mg DAILY PO 05/30/20 09:00 06/03/20 18:17 DC 06/03/20 09:12 Dexamethasone (Decadron) 2 mg DAILY PO 06/04/20 18:30 06/06/20 16:25 DC 06/06/20 08:29 Doxycycline Hyclate (Vibramycin) 100 mg BID PO 05/29/20 21:00 06/01/20 14:33 DC 06/01/20 08:47 Enoxaparin Sodium (Lovenox) 40 mg QHS SC 05/29/20 21:00 06/14/20 20:35 Glycerin (Glycerin Adult Suppository) 1 ea BIDP PRN [place] CONSTIPATION 06/08/20 08:00 06/08/20 08:34 Guaifenesin (Robitussin Tab) 400 mg Q4HP PRN PO COUGH 06/07/20 23:30 Home Med (Med Rec Complete!) ASDIRECTED XX 05/29/20 17:30 05/29/20 17:19 DC Hydroxyzine HCl (Atarax) 25 mg Q8HP PRN PO ANXIETY 06/05/20 11:30 06/12/20 09:42 Levothyroxine Sodium (Synthroid) 75 mcg DAILY@0600 PO 05/30/20 06:00 06/15/20 05:38 Magnesium Sulfate/ Dextrose 1 gm/IV Miscellaneous Supplies 100 ml @ 100 mls/hr Q1H IV 06/09/20 08:00 06/09/20 09:59 DC 06/09/20 08:47 Mirtazapine (Remeron) 30 mg QHS PO 05/29/20 21:00 06/14/20 20:35 Pantoprazole Sodium (Protonix) 20 mg DAILY PO 05/30/20 09:00 06/15/20 08:40 Polyethylene Glycol (Miralax) 1 pkt DAILY PO 06/08/20 09:00 06/15/20 08:40 Salmeterol Xinafoate/ Fluticasone (Advair Hfa 230/ ) 1 puff RBID INH 05/29/20 20:00 06/15/20 08:18 Sertraline HCl (Zoloft) 25 mg QHS PO 06/07/20 21:00 06/14/20 20:35 Sodium Biphosphate/ Sodium Phosphate (Fleet Enema) 1 ea DAILYPRN PRN [place] CONSTIPATION 06/08/20 12:30 06/08/20 14:59 Tiotropium [place] (Spiriva Handihaler) 1 inhalation DAILY@08 INH 05/30/20 08:00 06/15/20 08:18 Allergies Coded Allergies: Sulfa (Sulfonamide Antibiotics) (Verified Allergy, Unknown, 05/24/20) latex (Unverified Allergy, Unknown, LATEX RISK, 05/24/20) Penicillins (Unverified Adverse Reaction, Intermediate, BLOOD IN URINE, 05/24/20) amoxicillin (Unverified Adverse Reaction, Intermediate, BLOOD IN URINE, 05/24/20) clavulanic acid (Unverified Adverse Reaction, Intermediate, BLOOD IN URINE, 05/24/20) Funmilayo Jones MD Jun 15, 2020 13:05
[2020-06-15] MEDS: SERTRALINE HCL 25 MG TABLET PO SCH (21:57)
[2020-06-15] MEDS: ENOXAPARIN 40MG/0.4ML SYRINGE (J1650 PER 10MG) SC SCH (21:57)
[2020-06-15] MEDS: MIRTAZAPINE 15 MG TAB PO SCH (21:57)
[2020-06-16 06:00] VITALS: BP 112/62
[2020-06-16] MEDS: LEVOTHYROXINE 75MCG TABLET (0.075MG) PO SCH (06:16)
[2020-06-16] MEDS: TIOTROPIUM INHALER/CAPSULE (SPIRIVA) INH SCH (07:44)
[2020-06-16] MEDS: ALBUTEROL 90 MCG/ACT 8GM HFA INHALER INH SCH ×4 (07:44→20:00)
[2020-06-16] MEDS: ADVAIR HFA 230/21MCG INHALER INH SCH ×2 (07:44→20:14)
[2020-06-16] MEDS: MIRALAX *UNIT DOSE* 17GM PACKET PO SCH (09:00)
[2020-06-16] MEDS: ASPIRIN 81 MG ENTERIC TAB PO SCH (09:27)
[2020-06-16] MEDS: PANTOPRAZOLE 20 MG TAB PO SCH (09:27)
[2020-06-16] MEDS: MIRTAZAPINE 15 MG TAB PO SCH (19:50)
[2020-06-16] MEDS: ENOXAPARIN 40MG/0.4ML SYRINGE (J1650 PER 10MG) SC SCH (19:50)
[2020-06-16] MEDS: SERTRALINE HCL 25 MG TABLET PO SCH (19:50)
[2020-06-17] MEDS: LEVOTHYROXINE 75MCG TABLET (0.075MG) PO SCH (05:46)
[2020-06-17 06:00] VITALS: BP 111/64
[2020-06-17] MEDS: ASPIRIN 81 MG ENTERIC TAB PO SCH (07:24)
[2020-06-17] MEDS: MIRALAX *UNIT DOSE* 17GM PACKET PO SCH (07:24)
[2020-06-17] MEDS: PANTOPRAZOLE 20 MG TAB PO SCH (07:24)
[2020-06-17] MEDS: TIOTROPIUM INHALER/CAPSULE (SPIRIVA) INH SCH (07:26)
[2020-06-17] MEDS: ALBUTEROL 90 MCG/ACT 8GM HFA INHALER INH SCH ×4 (07:26→20:00)
[2020-06-17] MEDS: ADVAIR HFA 230/21MCG INHALER INH SCH ×2 (07:26→20:18)
[2020-06-17] MEDS: ACETAMINOPHEN TAB 650MG DOSE (2X325MG) PO PRN (16:46)
[2020-06-17] MEDS: SERTRALINE HCL 25 MG TABLET PO SCH (19:57)
[2020-06-17] MEDS: MIRTAZAPINE 15 MG TAB PO SCH (19:57)
[2020-06-17] MEDS: ENOXAPARIN 40MG/0.4ML SYRINGE (J1650 PER 10MG) SC SCH (19:58)
[2020-06-18] MEDS: ACETAMINOPHEN TAB 650MG DOSE (2X325MG) PO PRN ×3 (00:54→21:30)
[2020-06-18] MEDS: LEVOTHYROXINE 75MCG TABLET (0.075MG) PO SCH (05:46)
[2020-06-18 05:47] VITALS: BP 112/61
[2020-06-18] MEDS: ADVAIR HFA 230/21MCG INHALER INH SCH ×2 (07:27→20:52)
[2020-06-18] MEDS: ALBUTEROL 90 MCG/ACT 8GM HFA INHALER INH SCH ×3 (07:27→20:00)
[2020-06-18] MEDS: TIOTROPIUM INHALER/CAPSULE (SPIRIVA) INH SCH (07:27)
[2020-06-18] MEDS: PANTOPRAZOLE 20 MG TAB PO SCH (09:26)
[2020-06-18] MEDS: ASPIRIN 81 MG ENTERIC TAB PO SCH (09:26)
[2020-06-18] MEDS: MIRALAX *UNIT DOSE* 17GM PACKET PO SCH (09:26)
[2020-06-18] MEDS: ENOXAPARIN 40MG/0.4ML SYRINGE (J1650 PER 10MG) SC SCH (21:30)
[2020-06-18] MEDS: MIRTAZAPINE 15 MG TAB PO SCH (21:30)
[2020-06-18] MEDS: SERTRALINE HCL 25 MG TABLET PO SCH (21:30)
[2020-06-19 06:00] VITALS: BP 115/63
[2020-06-19] MEDS: LEVOTHYROXINE 75MCG TABLET (0.075MG) PO SCH (06:04)
[2020-06-19] MEDS: TIOTROPIUM INHALER/CAPSULE (SPIRIVA) INH SCH (07:09)
[2020-06-19] MEDS: ADVAIR HFA 230/21MCG INHALER INH SCH ×2 (07:09→20:11)
[2020-06-19] MEDS: ALBUTEROL 90 MCG/ACT 8GM HFA INHALER INH SCH ×4 (07:09→20:11)
[2020-06-19 07:17] LABS: HEMATOCRIT 36.2 % (42.0-52.0); HEMOGLOBIN 11.6 g/dl (13.5-17.5); MEAN CORPUSCULAR HEMOGLOBIN 31.3 pg (27.0-33.0); MEAN CORPUSCULAR VOLUME 97.6 fl (80.0-96.0); PLATELET COUNT, AUTOMATED 230 10^3/uL (150-450); RED BLOOD COUNT 3.71 10^6/uL (4.30-6.10); WHITE BLOOD COUNT 5.7 10^3/uL (4.0-10.0)
[2020-06-19 07:43] LABS: ALBUMIN 1.8 GM/DL (3.2-5.2); ALT/SGPT 27 U/L (12-78); BILIRUBIN,TOTAL 0.4 MG/DL (0.2-1.0); BLOOD UREA NITROGEN 13 MG/DL (7-18); CALCIUM LEVEL 8.1 MG/DL (8.8-10.2); CARBON DIOXIDE LEVEL 32 MEQ/L (21-32); CHLORIDE LEVEL 108 MEQ/L (98-107); CREATININE FOR GFR 0.82 MG/DL (0.70-1.30); GLOMERULAR FILTRATION RATE > 60.0 (>35); GLUCOSE, FASTING 97 MG/DL (70-100); POTASSIUM SERUM 4.4 MEQ/L (3.5-5.1); SODIUM LEVEL 144 MEQ/L (136-145)
[2020-06-19] MEDS: ASPIRIN 81 MG ENTERIC TAB PO SCH (09:36)
[2020-06-19] MEDS: PANTOPRAZOLE 20 MG TAB PO SCH (09:36)
[2020-06-19] MEDS: ACETAMINOPHEN TAB 650MG DOSE (2X325MG) PO PRN ×3 (09:36→20:36)
[2020-06-19] MEDS: MIRALAX *UNIT DOSE* 17GM PACKET PO SCH (09:37)
[2020-06-19] MEDS: ENOXAPARIN 40MG/0.4ML SYRINGE (J1650 PER 10MG) SC SCH (20:35)
[2020-06-19] MEDS: MIRTAZAPINE 15 MG TAB PO SCH (20:35)
[2020-06-19] MEDS: SERTRALINE HCL 25 MG TABLET PO SCH (20:36)
[2020-06-20] MEDS: LEVOTHYROXINE 75MCG TABLET (0.075MG) PO SCH (05:44)
[2020-06-20 06:00] VITALS: BP 121/76
[2020-06-20] MEDS: TIOTROPIUM INHALER/CAPSULE (SPIRIVA) INH SCH (07:22)
[2020-06-20] MEDS: ADVAIR HFA 230/21MCG INHALER INH SCH ×2 (07:22→20:36)
[2020-06-20] MEDS: ALBUTEROL 90 MCG/ACT 8GM HFA INHALER INH SCH ×4 (08:00→20:36)
[2020-06-20] MEDS: MIRALAX *UNIT DOSE* 17GM PACKET PO SCH (08:05)
[2020-06-20] MEDS: PANTOPRAZOLE 20 MG TAB PO SCH (08:05)
[2020-06-20] MEDS: ASPIRIN 81 MG ENTERIC TAB PO SCH (08:05)
--- NOTE | 2020-06-20 10:49 | IPNPDOC ---
Date Seen The patient was seen on 06/20/20. Progress Note SUBJECTIVE: No new issues since last evaluation. Denies chest pain, incr SOB, fevers, chills, n/v/d. OBJECTIVE: PHYSICAL EXAMINATION: VITAL SIGNS: please see below General: NAD, comfortable, hard of hearing HEENT: PERRLA, EOMI, sclerae clear, NC in place Neck: supple, normal ROM, no JVD Respiratory: decreased breath sounds b/l otherwise lungs CTAB, no wheeze, no rales, no crackles CVS: RRR, normal S1, S2, no murmurs Abdo: soft, no masses, no hepatosplenomegaly, BS+, no rebound tenderness Extremities: no edema, pulses 2+ MSK: no joint deformities, normal ROM Neuro: no focal neuro deficits, moving all 4 extremities, CN2-12 intact. Strength 5/5 in all 4 extremities. No nystagmus. LABORATORY DATA, IMAGING STUDIES, MICROBIOLOGY: Please see below. CXR from 06/07/20: 1. Increased left infrahilar and left base atelectasis with decreased delineation of the left hemidiaphragm since 06/04/2020. 2. Otherwise stable chest CTA 05/29: 1. There is no evidence of a pulmonary embolus 2. Chronic changes and exam limitations as described above. CXR 05/29: Stable appearing chronic changes. DVT prophylaxis ordered?: ASSESSMENT: 85-year-old male (resident of [facility]) with a PMHx of COPD (on 2.5 L O2 at night), was treated for COVID19 from 05/24-05/26 is discharged home with supplemental oxygen. Patient was having difficulty wearing and titrating his oxygen flow family was unable to provide 24/7 care. Patient was brought back to the hospital for further evaluation and treatment and likely placement / rehabilitation. PLAN: Shortness of breath likely multifactorial 2/2 to recent COVID 19 infection, underlying COPD and chronic respiratory failure. - Stable on 2-4L mostly at rest, per walking desat test today will likely need 4-5 L NC with activity to keep above or at 88%. - Currently patient stable, denies any significant shortness of breath or cough - Recent admission from 05/24-05/26; COVID positive on 05/24. Last COVID test on 06/15/20 still positive - CXR from 06/07/20:1. Increased left infrahilar and left base atelectasis with decreased delineation of the left hemidiaphragm since 06/04/2020. 2. Otherwise stable chest -S/p doxy, dexamethasone -C/w Incentive spirometer, inhaled therapy as ordered - PFS on board; looking into rehabilitation / swing bed Suicidal ideation/depressive disorder - Stable, denies SI/HI currently - Already assessed by Dr. Coronado - D/w Dr. Coronado on 06/09/20: Does not believe this to be suicidal ideation, and likely related to being down due to illness, hospitalization - C/w sertraline - monitor sodium, EKGs PRN Hypothyroidism - c/w Levothyroxine NAIR - Chronic Chronic Anemia -Stable History of colon cancer (2009) -F/u with PCP Chronic Monoclonal gammopathy of uncertain significance -F/u o/p GERD - c/w Protonix DVT prophylaxis - c/w Lovenox DISPOSITION: PT recommending 27/11 care or rehabilitation. Discussed with SW/PFS before weekend- possible d/c after weekend. C/w ALC status. VS, I&O, 24H, Fishbone Vital Signs/I&O Vital Signs Date Time Temp Pulse Resp B/P (MAP) Pulse Ox O2 Delivery O2 Flow Rate FiO2 06/20/20 08:30 2.0 06/20/20 06:00 97.9 76 20 121/76 (91) 92 Nasal Cannula I&O- Last 24 Hours up to 6 AM 06/20/20 06:00 Intake Total 1620 ml Output Total 750 ml Balance 870 ml Current Medications Current Medications Medications (Trade) Dose Ordered Sig/Chaka Route PRN Reason Start Time Stop Time Status Last Admin Dose Admin Acetaminophen (Tylenol Tab) 650 mg Q6HP PRN PO PAIN / FEVER 06/17/20 16:30 06/19/20 20:36 Albuterol Sulfate (Proventil, Ventolin Hfa) 2 puff Q2HP PRN INH SHORTNESS OF BREATH 05/29/20 19:15 06/07/20 23:07 Albuterol Sulfate (Proventil, Ventolin Hfa) 2 puff RQID INH 05/29/20 20:00 06/19/20 20:11 Albuterol/ Ipratropium (Combivent Respimat 100-20mcg) 4 puff Q20M INH 05/29/20 12:45 05/29/20 13:26 DC 05/29/20 13:30 Aspirin (Ecotrin) 81 mg DAILY PO 05/29/20 09:00 06/20/20 08:05 Dexamethasone (Decadron) 2 mg DAILY PO 05/30/20 09:00 06/03/20 18:17 DC 06/03/20 09:12 Dexamethasone (Decadron) 2 mg DAILY PO 06/04/20 18:30 06/06/20 16:25 DC 06/06/20 08:29 Doxycycline Hyclate (Vibramycin) 100 mg BID PO 05/29/20 21:00 06/01/20 14:33 DC 06/01/20 08:47 Enoxaparin Sodium (Lovenox) 40 mg QHS SC 05/29/20 21:00 06/19/20 20:35 Glycerin (Glycerin Adult Suppository) 1 ea BIDP PRN [place] CONSTIPATION 06/08/20 08:00 06/08/20 08:34 Guaifenesin (Robitussin Tab) 400 mg Q4HP PRN PO COUGH 06/07/20 23:30 Home Med (Med Rec Complete!) ASDIRECTED XX 05/29/20 17:30 05/29/20 17:19 DC Hydroxyzine HCl (Atarax) 25 mg Q8HP PRN PO ANXIETY 06/05/20 11:30 06/12/20 09:42 Levothyroxine Sodium (Synthroid) 75 mcg DAILY@0600 PO 05/30/20 06:00 06/20/20 05:44 Magnesium Sulfate/ Dextrose 1 gm/IV Miscellaneous Supplies 100 ml @ 100 mls/hr Q1H IV 06/09/20 08:00 06/09/20 09:59 DC 06/09/20 08:47 Mirtazapine (Remeron) 30 mg QHS PO 05/29/20 21:00 06/19/20 20:35 Pantoprazole Sodium (Protonix) 20 mg DAILY PO 05/30/20 09:00 06/20/20 08:05 Polyethylene Glycol (Miralax) 1 pkt DAILY PO 06/08/20 09:00 06/20/20 08:05 Salmeterol Xinafoate/ Fluticasone (Advair Hfa ) 1 puff RBID INH 05/29/20 20:00 06/20/20 07:22 Sertraline HCl (Zoloft) 25 mg QHS PO 06/07/20 21:00 06/19/20 20:36 Sodium Biphosphate/ Sodium Phosphate (Fleet Enema) 1 ea DAILYPRN PRN [place] CONSTIPATION 06/08/20 12:30 06/08/20 14:59 Tiotropium [place] (Spiriva Handihaler) 1 inhalation DAILY@08 INH 05/30/20 08:00 06/19/20 07:09 Allergies Coded Allergies: Sulfa (Sulfonamide Antibiotics) (Verified Allergy, Unknown, 05/24/20) latex (Unverified Allergy, Unknown, LATEX RISK, 05/24/20) Penicillins (Unverified Adverse Reaction, Intermediate, BLOOD IN URINE, 05/24/20) amoxicillin (Unverified Adverse Reaction, Intermediate, BLOOD IN URINE, 05/24/20) clavulanic acid (Unverified Adverse Reaction, Intermediate, BLOOD IN URINE, 05/24/20) Funmilayo Jones MD Jun 20, 2020 10:49
[2020-06-20] MEDS: SERTRALINE HCL 25 MG TABLET PO SCH (20:38)
[2020-06-20] MEDS: ENOXAPARIN 40MG/0.4ML SYRINGE (J1650 PER 10MG) SC SCH (20:38)
[2020-06-20] MEDS: MIRTAZAPINE 15 MG TAB PO SCH (20:38)
[2020-06-20] MEDS: ACETAMINOPHEN TAB 650MG DOSE (2X325MG) PO PRN (20:39)
[2020-06-21] MEDS: LEVOTHYROXINE 75MCG TABLET (0.075MG) PO SCH (05:37)
[2020-06-21 06:00] VITALS: BP 118/72
[2020-06-21] MEDS: ADVAIR HFA 230/21MCG INHALER INH SCH (07:15)
[2020-06-21] MEDS: ALBUTEROL 90 MCG/ACT 8GM HFA INHALER INH SCH ×3 (07:16→15:11)
[2020-06-21] MEDS: TIOTROPIUM INHALER/CAPSULE (SPIRIVA) INH SCH (07:16)
[2020-06-21] MEDS: MIRALAX *UNIT DOSE* 17GM PACKET PO SCH (09:15)
[2020-06-21] MEDS: ASPIRIN 81 MG ENTERIC TAB PO SCH (09:15)
[2020-06-21] MEDS: PANTOPRAZOLE 20 MG TAB PO SCH (09:15)
--- NOTE | 2020-06-21 13:22 | DS.PDOC ---
Discharge Summary General Date of Admission May 29, 2020 at 16:51 Date of Discharge 04/20/21 Attending Physician: Funmilayo Jones MD Discharge Summary HISTORY OF PRESENT ILLNESS: 85 y/o male w h/o copd not [id number] who lives at [facility] recently diagnoses and admitted for covid-19 on 05/24/20-05/26/20 with negative chest xray but required home o2 at discharge returns with increasing sob due to not wearing his oxygen. Pt's daughters are unable to supervise continuous oxygen since they are quarantined, so the patient was brought in to the ER for admission. He otherwise denies fever, chills, cough, n/v/abd pain, chest pain, loss of smell or taste, weight loss, and says he tries to use his oxygen but he forgets. He is admitted for covid-19 and unable tocare for himself at assisted living. cxr negative. no fever or symptoms, but mid80's on 84% room air needing 2liters oxygen. HOSPITAL COURSE: Shortness of breath was multifactorial 2/2 to recent COVID 19 infection, underlying COPD and chronic respiratory failure. On walking test he was found to be stable on 2-4L mostly at rest, but with ambulation/activity he required 4-5 L NC to keep above or at 88%. During his hospital stay he was treated with doxy, dexamethasone and no longer requires this treatment. He has been doing well with incentive spirometer, inhaled therapy as ordered. He was seen by psychiatry this stay for ?suicidal ideation/depressive disorder. She did not believe this to be suicidal ideation, and likely related to being down due to illness, hospitalization. He is to remain on the sertraline and currently denies any SI/HI, feeling of worsening depression. Other chronic issues have been stable. On 06/21/20 patient was discharged to [facility] facility to continue care/treatment. At time of discharge, he had no acute complaints. PAST MEDICAL HISTORY: 1. COPD with chronic respiratory failure. He typically is on 2.5 L/m of oxygen at night only. 2. Acquired hypothyroidism, secondary to radiocontrast-induced hyperthyroidism 3. Anemia, chronic 4. Nonalcoholic steatohepatitis 5. Seasonal depression/dysthymia 6. History of colon cancer (2009) 7. Monoclonal gammopathy of uncertain significance 8. coronavirus 1/18/21-05/26/20 [facility] admission 9. acute hypoxic respiratory failure due to covid-19 on 2liters nc since 05/26/20 PAST SURGICAL HISTORY: 1. Appendectomy 2. Right hemicolectomy, secondary to colon cancer 3. Bilateral cataract extraction with lens implants SOCIAL HISTORY: Lives at [facility] assisted living, former smoker, no etoh or recreational drug use, retired. dnr/dni FAMILY HISTORY: . both mother/father copd ALLERGIES: Please see below. DISCHARGE MEDICATIONS: Please see below. PHYSICAL EXAMINATION: VITAL SIGNS: please see below General: NAD, comfortable, hard of hearing HEENT: PERRLA, EOMI, sclerae clear, NC in place Neck: supple, normal ROM, no JVD Respiratory: decreased breath sounds b/l otherwise lungs CTAB, no wheeze, no rales, no crackles CVS: RRR, normal S1, S2, no murmurs Abdo: soft, no masses, no hepatosplenomegaly, BS+, no rebound tenderness Extremities: no edema, pulses 2+ MSK: no joint deformities, normal ROM Neuro: no focal neuro deficits, moving all 4 extremities, CN2-12 intact. Strength 5/5 in all 4 extremities. No nystagmus. LABORATORY DATA, IMAGING STUDIES, MICROBIOLOGY: Please see below. CXR from 06/07/20: 1. Increased left infrahilar and left base atelectasis with decreased delineation of the left hemidiaphragm since 06/04/2020. 2. Otherwise stable chest CTA 05/29: 1. There is no evidence of a pulmonary embolus 2. Chronic changes and exam limitations as described above. CXR 05/29: Stable appearing chronic changes. DVT prophylaxis ordered?: ASSESSMENT: 85-year-old male (resident of [facility]) with a PMHx of COPD (on 2.5 L O2 at night), was treated for COVID19 from 05/24-05/26 is discharged home with supplemental oxygen. Patient was having difficulty wearing and titrating his oxygen flow family was unable to provide 24/7 care. Patient was brought back to the hospital for further evaluation and treatment and likely placement / rehabilitation. PLAN: Shortness of breath likely multifactorial 2/2 to recent COVID 19 infection, underlying COPD and chronic respiratory failure. - Stable on 2-4L mostly at rest, per walking desat test need 4-5 L NC with activity to keep above or at 88%. - Currently patient stable, denies any significant shortness of breath or cough - Recent admission from 05/24-05/26; COVID positive on 05/24. Last COVID test on 06/15/20 still positive - CXR from 06/07/20:1. Increased left infrahilar and left base atelectasis with decreased delineation of the left hemidiaphragm since 06/04/2020. 2. Otherwise stable chest -S/p doxy, dexamethasone -C/w Incentive spirometer, inhaled therapy as ordered - PFS on board; looking into rehabilitation / swing bed Suicidal ideation/depressive disorder - Stable, denies SI/HI currently - Already assessed by Dr. Coronado - D/w Dr. Coronado on 06/09/20: Does not believe this to be suicidal ideation, and likely related to being down due to illness, hospitalization - C/w sertraline Hypothyroidism - c/w Levothyroxine NAIR - Chronic Chronic Anemia -Stable History of colon cancer (2009) -F/u with PCP Chronic Monoclonal gammopathy of uncertain significance -F/u o/p GERD - c/w Protonix DISPOSITION: Discharged today to [facility] to continue rehab/treatment. TIME SPENT ON DISCHARGE: 35 minutes. Vital Signs/I&Os Vital Signs Date Time Temp Pulse Resp B/P (MAP) Pulse Ox O2 Delivery O2 Flow Rate FiO2 06/21/20 07:40 2.0 06/21/20 07:18 18 06/21/20 06:00 97.7 76 118/72 (87) 93 Nasal Cannula I&O- Last 24 Hours up to 6 AM 06/21/20 06:00 Intake Total 1280 ml Output Total 275 ml Balance 1005 ml Discharge Medications Scheduled Aspirin (Aspirin EC) 81 Mg Tablet., 81 MG PO DAILY Cholecalciferol (Vitamin D3) (Vitamin D3) 50 Mcg Capsule, 50 MCG PO DAILY, (Reported) Dexamethasone (Dexamethasone) 2 Mg Tablet, 2 MG PO DAILY, (Reported) TOOK LAST TAB TODAY Doxycycline Hyclate (Doxycycline Hyclate) 100 Mg Capsule, 100 MG PO BID Levothyroxine Sodium (Synthroid) 75 Mcg Tablet, 75 MCG PO DAILY, (Reported) Mirtazapine (Remeron) 30 Mg Tablet, 30 MG PO QHS, (Reported) [place]-3 Fatty Acids/Fish Oil (Fish Oil 1,000 mg Capsule) 1 Each Capsule, 1,000 MG PO DAILY, (Reported) Pantoprazole Sodium (Pantoprazole Sodium) 20 Mg Tablet.dr, 20 MG PO DAILY Salmeterol/Fluticasone (Advair 250-50 Diskus) 1 Each Blst.w.dev, 1 PUFF INH BID, (Reported) Tiotropium [place] (Spiriva Respimat) 4 Gm Mist.inhal, 2 PUFF INH DAILY, (Reported) Scheduled PRN Albuterol Sulfate (Proair Hfa) 8.5 Gm Hfa.aer.ad, 2 PUFF INH Q4-6HP PRN for wheezing Allergies Coded Allergies: Sulfa (Sulfonamide Antibiotics) (Verified Allergy, Unknown, 05/24/20) latex (Unverified Allergy, Unknown, LATEX RISK, 05/24/20) Penicillins (Unverified Adverse Reaction, Intermediate, BLOOD IN URINE, 05/24/20) amoxicillin (Unverified Adverse Reaction, Intermediate, BLOOD IN URINE, 05/24/20) clavulanic acid (Unverified Adverse Reaction, Intermediate, BLOOD IN URINE, 05/24/20) Funmilayo Jones MD Jun 21, 2020 13:22
[2020-06-21] MEDS ORDERED: GUAI20TA PO (13:31)
[2020-06-21] MEDS ORDERED: SERT25TA21 PO (13:31)
[2020-06-21] MEDS ORDERED: TIOT18INH INH (13:31)
[2020-06-21] MEDS ORDERED: ACET1TAB55 PO (13:31)
[2020-06-21] MEDS ORDERED: HYDR-3363 PO (13:31)
[2020-06-21] MEDS ORDERED: PEG1POW PO (13:31)
== END 2020-06-21 16:30 | disposition home or self-care (01) | DRG 178 ==
LOC: M ED 12:04 → M ED INP 16:51 → EEVIPCON 16:51 → M 4MAIN 18:45 → M MS5PR 06-11 17:37
PROVIDERS: ADMIT General Practice; ATTEND Internal Medicine
DX: U07.1 COVID-19 (principal); J96.10 Chronic respiratory failure, unspecified whether with hypoxia or hypercapnia; F32.9 Major depressive disorder, single episode, unspecified; E03.9 Hypothyroidism, unspecified; R45.850 Homicidal ideations; J44.9 Chronic obstructive pulmonary disease, unspecified; Z85.038 Personal history of other malignant neoplasm of large intestine; D47.2 Monoclonal gammopathy; K21.9 Gastro-esophageal reflux disease without esophagitis; Z79.82 Long term (current) use of aspirin; Z79.899 Other long term (current) drug therapy; Z88.2 Allergy status to sulfonamides; Z91.040 Latex allergy status; Z88.0 Allergy status to penicillin; Z88.8 Allergy status to other drugs, medicaments and biological substances; D64.9 Anemia, unspecified; K75.81 Nonalcoholic steatohepatitis (NASH); Z87.891 Personal history of nicotine dependence